=== PATIENT | male | born 1965 | race Caucasian/White ===

== ENCOUNTER 2017-03-24 10:17 | Inpatient (IN) | payer BC ==
[2017-03-24] MEDS ORDERED: ceFAZolin 2 GM in SODIUM CHLORIDE 0.9% 100 ML IVPB SCH (16:00)
[2017-03-24] MEDS ORDERED: IV VANCOMYCIN PER PHARMACY 1 EACH MISC MISCELLANE PRN (16:43)
[2017-03-24] MEDS ORDERED: VANCOMYCIN 1,250 MG in SODIUM CHLORIDE 0.9% 250 ML IVPB ONE (17:00)
[2017-03-24 17:06] LABS: Basophils # (A) 0.1 k/uL (0-0.2); Basophils % (A) 0 %; CH 28.3; CHCM 32.7; Eosinophils # (A) 0.2 k/uL (0-0.7); Eosinophils % (A) 1 %; HCT 35.2 % (39.0-53.0); HDW 2.89; HGB 11.6 gm/dL (13.0-17.5); Luc # (Auto) 0.31; Luc % (Auto) 1; Lymphocytes # (A) 1.6 k/uL (1.0-4.8); Lymphocytes % (A) 7 %; MCH 28.7 pg (25.0-35.0); MCHC 33.1 g/dL (31.0-37.0); MCV 86.6 fL (80.0-100.0); Mean Platelet Volume 6.7; Monocytes # (A) 0.6 k/uL (0-1.0); Monocytes % (A) 3 %; Neutrophils # (A) 20.4 k/uL (1.3-7.7); Neutrophils % (A) 88 %; RBC 4.06 m/uL (4.30-5.90); RDW 12.7 % (11.5-15.5); WBC 23.1 k/uL (3.8-10.6); WBC (Perox) 24.22
[2017-03-24 17:17] LABS: ALT 25 U/L (21-72); AST 15 U/L (17-59); Alkaline Phosphatase 96 U/L (38-126); Anion Gap 13 mmol/L; Blood Urea Nitrogen 29 mg/dL (9-20); Carbon Dioxide 22 mmol/L (22-30); Chloride 101 mmol/L (98-107); Glucose 132 mg/dL (74-99); Non-African American GFR(MDRD) >60 (>60 ml/min/1.73 sqM); Potassium 4.8 mmol/L (3.5-5.1); Sodium 136 mmol/L (137-145); Total Bilirubin 0.8 mg/dL (0.2-1.3)
[2017-03-24] MEDS ORDERED: INSULIN GLARGINE 100 UNIT/ML 10 ML VIAL SQ SCH (17:30)
[2017-03-24] MEDS: CARVEDILOL 3.125 MG TAB PO SCH (17:35)
[2017-03-24] MEDS: IBUPROFEN 800 MG TAB PO PRN (17:35)
[2017-03-24 17:36] LABS: Glucose,Whole Blood 124 mg/dL (75-99)
[2017-03-24] MEDS: SODIUM CHLORIDE 0.9% 1,000 ML IV SCH (17:43)
[2017-03-24] MEDS: INSULIN LISPRO (humaLOG) 300 UNIT/3 ML VIAL SQ SCH ×3 (17:44→21:41)
[2017-03-24 20:57] LABS: Glucose,Whole Blood 121 mg/dL (75-99)
[2017-03-24] MEDS: INSULIN GLARGINE 100 UNIT/ML 10 ML VIAL SQ SCH (21:41)
[2017-03-24] MEDS: SPIRONOLACTONE 25 MG TAB PO SCH (21:42)
[2017-03-24] MEDS: traMADol 50 MG TAB PO PRN (21:47)
[2017-03-24] MEDS: PIPERACILLIN-TAZOBACTAM 3.375 GM in DEXTROSE/WATER 1 50ML.BAG IVPB SCH (23:32)
[2017-03-24 23:34] LABS: Hemoglobin A1C 7.1 % (4.2-6.1)
[2017-03-25] MEDS: SODIUM CHLORIDE 0.9% 1,000 ML IV SCH ×2 (04:57→16:55)
[2017-03-25] MEDS: VANCOMYCIN 1,250 MG in SODIUM CHLORIDE 0.9% 250 ML IVPB SCH ×2 (04:59→21:10)
[2017-03-25 07:38] LABS: Glucose,Whole Blood 102 mg/dL (75-99)
[2017-03-25] MEDS: INSULIN LISPRO (humaLOG) 300 UNIT/3 ML VIAL SQ SCH ×7 (07:41→21:46)
[2017-03-25] MEDS: PIPERACILLIN-TAZOBACTAM 3.375 GM in DEXTROSE/WATER 1 50ML.BAG IVPB SCH ×2 (08:38→16:53)
[2017-03-25] MEDS: IBUPROFEN 800 MG TAB PO PRN ×2 (08:42→16:55)
[2017-03-25] MEDS: INSULIN GLARGINE 100 UNIT/ML 10 ML VIAL SQ SCH ×2 (08:42→21:45)
[2017-03-25] MEDS: ASPIRIN 81 MG CHEW PO SCH (08:43)
[2017-03-25] MEDS: ATORVASTATIN 40 MG TAB PO SCH (08:43)
[2017-03-25] MEDS: SPIRONOLACTONE 25 MG TAB PO SCH ×2 (08:43→20:52)
[2017-03-25] MEDS: CARVEDILOL 3.125 MG TAB PO SCH ×2 (08:43→16:55)
[2017-03-25] MEDS: CLOPIDOGREL 75 MG TAB PO SCH (08:43)
--- NOTE | 2017-03-25 09:14 | P.GSCN ---
<Flavia Santacruz - Last Filed: 03/25/17 08:55> History of Present Illness Consult date: 03/25/17 Reason for Consult: Right lower extremity wound, treatment options. Requesting physician: Jose F Kathleen History of present illness: This 51-year-old gentleman with a previous history of uncontrolled type 2 diabetes, COPD, tobacco dependence, cardiac arrest, triple vessel coronary artery disease status post coronary artery bypass graft surgery in February 2016, acute kidney injury, and peripheral vascular disease presented to the hospital at the request of Dr. Kathleen secondary to a wound on the medial aspect of his right foot. The patient states the wound has been present for 7-10 days. It began as a blister and grew from there. He has tried wrapping it, Neosporin, Epsom soaks, as well as squeezing the pus out of the wound. He saw Dr. Kathleen in his office and was started on oral antibiotics. Patient states he was sent to the hospital as he had an elevated white blood cell count for IV antibiotics. He does state that the site is painful with walking but not at rest. Dr. Johnson was consulted for treatment recommendations. Review of Systems 14 point review of systems was completed and was negative except as noted. - Constitutional Constitutional Comment(s): Denies fever, chills. - Cardiovascular Cardiovascular Comment(s): State the right leg has been swollen lately. - Musculoskeletal Musculoskeleta Comment(s): States the foot hurts with walking but not at rest. States the pain has only been there since the wound was present, denies leg pain with walking. 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 Last Myocardial Infarction Date:: 2015 History of Any Multi-Drug Resistant Organisms: None Reported Past Surgical History: Coronary Bypass/CABG, Heart Catheterization Additional Past Surgical History / Comment(s): 02/09/17 cardiac cath, 02/13/16 CABG 4 vessel. Past Anesthesia/Blood Transfusion Reactions: No Reported Reaction Smoking Status: Former smoker - Past Family History Mother Family Medical History: Coronary Artery Disease (CAD), Diabetes Mellitus Father Family Medical History: Diabetes Mellitus Medications and Allergies Home Medications Medication Instructions Recorded Confirmed Type Atorvastatin [Lipitor] 40 mg PO DAILY 03/24/17 03/24/17 History Insulin Glargine,Hum.rec.anlog 15 unit SQ AC-BRKFST 03/24/17 03/24/17 History [Lantus Solostar] Insulin Glargine,Hum.rec.anlog 20 unit SQ AC-SUPPER 03/24/17 03/24/17 History [Lantus Solostar] Insulin Lispro [humaLOG Kwikpen] 10 unit SQ AC-TID 03/24/17 03/24/17 History Insulin Lispro [humaLOG Kwikpen] See Protocol SQ AC-TID 03/24/17 03/24/17 History Spironolactone [Aldactone] 25 mg PO BID 03/24/17 03/24/17 History Allergies Allergy/AdvReac Type Severity Reaction Status Date / Time No Known Allergies Allergy Verified 03/24/17 15:09 Surgical - Exam Vital Signs Temp Pulse Resp BP Pulse Ox 99.3 F 80 18 119/68 97 03/24/17 14:24 03/24/17 14:24 03/24/17 14:24 03/24/17 14:24 03/24/17 14:24 - General well developed, well nourished, no distress, no pain - Eyes PERRL, normal ocular movement - ENT no hearing loss - Neck no masses, no bruits, trachea midline - Respiratory Respirations even, nonlabored. Currently on room air with oxygen saturation 97% . normal expansion, normal respiratory effort, clear to auscultation - Cardiovascular S1, S2 present. Regular rate and rhythm. Palpable pulses bilateral upper extremities, left lower extremity. Faintly palpable DP pulse right lower extremity. No edema present. - Abdomen Abdomen: soft, non tender, bowel sounds - Genitourinary Deferred - Rectum Deferred - Integumentary Stage II dry ulcer present to right medial foot, approximately 5 x 6 cm. See pictures in chart. Patient does have multiple scabs present over lower extremities. Skin is warm and dry. - Psychiatric oriented to time, oriented to person, oriented to place, speech is normal, memory intact Results - Labs 03/24/17 16:44 03/24/17 16:44 Abnormal Lab Results - Last 24 Hours (Table) 03/24/17 03/24/17 03/24/17 Range/Units 16:44 16:44 16:44 WBC 23.1 H (3.8-10.6) k/uL RBC 4.06 L (4.30-5.90) m/uL Hgb 11.6 L (13.0-17.5) gm/dL Hct 35.2 L (39.0-53.0) % Plt Count 493 H (150-450) k/uL Neutrophils # 20.4 H (1.3-7.7) k/uL ESR 106 H (0-15) mm/hr Sodium 136 L (137-145) mmol/L BUN 29 H (9-20) mg/dL Glucose 132 H (74-99) mg/dL POC Glucose (mg/dL) (75-99) mg/dL Hemoglobin A1c (4.2-6.1) % AST 15 L (17-59) U/L Albumin 3.4 L (3.5-5.0) g/dL 03/24/17 03/24/17 03/24/17 Range/Units 16:44 17:23 20:56 WBC (3.8-10.6) k/uL RBC (4.30-5.90) m/uL Hgb (13.0-17.5) gm/dL Hct (39.0-53.0) % Plt Count (150-450) k/uL Neutrophils # (1.3-7.7) k/uL ESR (0-15) mm/hr Sodium (137-145) mmol/L BUN (9-20) mg/dL Glucose (74-99) mg/dL POC Glucose (mg/dL) 124 H 121 H (75-99) mg/dL Hemoglobin A1c 7.1 H (4.2-6.1) % AST (17-59) U/L Albumin (3.5-5.0) g/dL 03/25/17 Range/Units 07:37 WBC (3.8-10.6) k/uL RBC (4.30-5.90) m/uL Hgb (13.0-17.5) gm/dL Hct (39.0-53.0) % Plt Count (150-450) k/uL Neutrophils # (1.3-7.7) k/uL ESR (0-15) mm/hr Sodium (137-145) mmol/L BUN (9-20) mg/dL Glucose (74-99) mg/dL POC Glucose (mg/dL) 102 H (75-99) mg/dL Hemoglobin A1c (4.2-6.1) % AST (17-59) U/L Albumin (3.5-5.0) g/dL Microbiology - Last 24 Hours (Table) 03/24/17 16:55 Gram Stain - Preliminary Foot - Right Wound Culture - Preliminary 03/24/17 17:00 Anaerobic Culture - Preliminary Foot - Right 03/24/17 14:45 Gram Stain - Preliminary Foot - Right Wound Culture - Preliminary Diabetes panel 03/24/17 03/24/17 Range/Units 16:44 16:44 Sodium 136 L (137-145) mmol/L Potassium 4.8 (3.5-5.1) mmol/L Chloride 101 (98-107) mmol/L Carbon Dioxide 22 (22-30) mmol/L BUN 29 H (9-20) mg/dL Creatinine 0.80 (0.66-1.25) mg/dL Glucose 132 H (74-99) mg/dL Hemoglobin A1c 7.1 H (4.2-6.1) % Calcium 9.0 (8.4-10.2) mg/dL AST 15 L (17-59) U/L ALT 25 (21-72) U/L Alkaline Phosphatase 96 (38-126) U/L Total Protein 7.0 (6.3-8.2) g/dL Albumin 3.4 L (3.5-5.0) g/dL Calcium panel 03/24/17 Range/Units 16:44 Calcium 9.0 (8.4-10.2) mg/dL Albumin 3.4 L (3.5-5.0) g/dL Pituitary panel 03/24/17 Range/Units 16:44 Sodium 136 L (137-145) mmol/L Potassium 4.8 (3.5-5.1) mmol/L Chloride 101 (98-107) mmol/L Carbon Dioxide 22 (22-30) mmol/L BUN 29 H (9-20) mg/dL Creatinine 0.80 (0.66-1.25) mg/dL Glucose 132 H (74-99) mg/dL Calcium 9.0 (8.4-10.2) mg/dL Adrenal panel 03/24/17 Range/Units 16:44 Sodium 136 L (137-145) mmol/L Potassium 4.8 (3.5-5.1) mmol/L Chloride 101 (98-107) mmol/L Carbon Dioxide 22 (22-30) mmol/L BUN 29 H (9-20) mg/dL Creatinine 0.80 (0.66-1.25) mg/dL Glucose 132 H (74-99) mg/dL Calcium 9.0 (8.4-10.2) mg/dL Total Bilirubin 0.8 (0.2-1.3) mg/dL AST 15 L (17-59) U/L ALT 25 (21-72) U/L Alkaline Phosphatase 96 (38-126) U/L Total Protein 7.0 (6.3-8.2) g/dL Albumin 3.4 L (3.5-5.0) g/dL - Imaging Additional studies: EDWIN reviewed Assessment and Plan (1) Peripheral vascular disease Status: Acute (2) Tobacco dependence in remission Status: Acute (3) Right foot ulcer Status: Acute (4) COPD (chronic obstructive pulmonary disease) Status: Acute (5) Diabetes Status: Acute (6) S/P CABG (coronary artery bypass graft) Status: Acute Plan: The patient was seen and examined. Chart/diagnostics were reviewed. Wet-to- dry dressing applied to right foot wound. Will discuss treatment recommendations with Dr. Johnson. Medical management per primary care service. IV antibiotic treatment per infectious disease recommendations. Wound culture sent, await results. Risk factor modifications discussed with patient including continued smoking cessation and better control of blood sugars. Thank you Dr. Kathleen for this consult. We look forward to working with you in the care of your patient. Time with Patient: Greater than 30 <Ramone Johnson - Last Filed: 03/25/17 14:27> Surgical - Exam Osteopathic Statement: *. No significant issues noted on an osteopathic structural exam other than those noted in the History and Physical/Consult. Vital Signs Temp Pulse Resp BP Pulse Ox 99.3 F 80 18 119/68 97 03/24/17 14:24 03/24/17 14:24 03/24/17 14:24 03/24/17 14:24 03/24/17 14:24 Results - Labs 03/25/17 08:48 03/25/17 08:48 Abnormal Lab Results - Last 24 Hours (Table) 03/24/17 03/24/17 03/24/17 Range/Units 16:44 16:44 16:44 WBC 23.1 H (3.8-10.6) k/uL RBC 4.06 L (4.30-5.90) m/uL Hgb 11.6 L (13.0-17.5) gm/dL Hct 35.2 L (39.0-53.0) % Plt Count 493 H (150-450) k/uL Neutrophils # 20.4 H (1.3-7.7) k/uL ESR 106 H (0-15) mm/hr Sodium 136 L (137-145) mmol/L BUN 29 H (9-20) mg/dL Glucose 132 H (74-99) mg/dL POC Glucose (mg/dL) (75-99) mg/dL Hemoglobin A1c (4.2-6.1) % AST 15 L (17-59) U/L Albumin 3.4 L (3.5-5.0) g/dL Urine Mucus (None) /hpf 03/24/17 03/24/17 03/24/17 Range/Units 16:44 17:23 20:56 WBC (3.8-10.6) k/uL RBC (4.30-5.90) m/uL Hgb (13.0-17.5) gm/dL Hct (39.0-53.0) % Plt Count (150-450) k/uL Neutrophils # (1.3-7.7) k/uL ESR (0-15) mm/hr Sodium (137-145) mmol/L BUN (9-20) mg/dL Glucose (74-99) mg/dL POC Glucose (mg/dL) 124 H 121 H (75-99) mg/dL Hemoglobin A1c 7.1 H (4.2-6.1) % AST (17-59) U/L Albumin (3.5-5.0) g/dL Urine Mucus (None) /hpf 03/25/17 03/25/17 03/25/17 Range/Units 07:37 08:48 08:48 WBC 18.0 H (3.8-10.6) k/uL RBC 3.94 L (4.30-5.90) m/uL Hgb 11.3 L (13.0-17.5) gm/dL Hct 34.6 L (39.0-53.0) % Plt Count 509 H (150-450) k/uL Neutrophils # 15.3 H (1.3-7.7) k/uL ESR (0-15) mm/hr Sodium (137-145) mmol/L BUN 25 H (9-20) mg/dL Glucose 125 H (74-99) mg/dL POC Glucose (mg/dL) 102 H (75-99) mg/dL Hemoglobin A1c (4.2-6.1) % AST 12 L (17-59) U/L Albumin 3.2 L (3.5-5.0) g/dL Urine Mucus (None) /hpf 03/25/17 03/25/17 03/25/17 Range/Units 12:27 12:30 13:23 WBC (3.8-10.6) k/uL RBC (4.30-5.90) m/uL Hgb (13.0-17.5) gm/dL Hct (39.0-53.0) % Plt Count (150-450) k/uL Neutrophils # (1.3-7.7) k/uL ESR (0-15) mm/hr Sodium (137-145) mmol/L BUN (9-20) mg/dL Glucose (74-99) mg/dL POC Glucose (mg/dL) 62 L 68 L (75-99) mg/dL Hemoglobin A1c (4.2-6.1) % AST (17-59) U/L Albumin (3.5-5.0) g/dL Urine Mucus Rare H (None) /hpf Microbiology - Last 24 Hours (Table) 03/24/17 16:55 Gram Stain - Preliminary Foot - Right Wound Culture - Preliminary 03/24/17 17:00 Anaerobic Culture - Preliminary Foot - Right 03/24/17 14:45 Gram Stain - Preliminary Foot - Right Wound Culture - Preliminary Diabetes panel 03/24/17 03/24/17 03/25/17 Range/Units 16:44 16:44 08:48 Sodium 136 L 139 (137-145) mmol/L Potassium 4.8 5.0 (3.5-5.1) mmol/L Chloride 101 103 (98-107) mmol/L Carbon Dioxide 22 25 (22-30) mmol/L BUN 29 H 25 H (9-20) mg/dL Creatinine 0.80 0.80 (0.66-1.25) mg/dL Glucose 132 H 125 H (74-99) mg/dL Hemoglobin A1c 7.1 H (4.2-6.1) % Calcium 9.0 9.1 (8.4-10.2) mg/dL AST 15 L 12 L (17-59) U/L ALT 25 27 (21-72) U/L Alkaline Phosphatase 96 78 (38-126) U/L Total Protein 7.0 6.7 (6.3-8.2) g/dL Albumin 3.4 L 3.2 L (3.5-5.0) g/dL Calcium panel 03/24/17 03/25/17 Range/Units 16:44 08:48 Calcium 9.0 9.1 (8.4-10.2) mg/dL Albumin 3.4 L 3.2 L (3.5-5.0) g/dL Pituitary panel 03/24/17 03/25/17 Range/Units 16:44 08:48 Sodium 136 L 139 (137-145) mmol/L Potassium 4.8 5.0 (3.5-5.1) mmol/L Chloride 101 103 (98-107) mmol/L Carbon Dioxide 22 25 (22-30) mmol/L BUN 29 H 25 H (9-20) mg/dL Creatinine 0.80 0.80 (0.66-1.25) mg/dL Glucose 132 H 125 H (74-99) mg/dL Calcium 9.0 9.1 (8.4-10.2) mg/dL Adrenal panel 03/24/17 03/25/17 Range/Units 16:44 08:48 Sodium 136 L 139 (137-145) mmol/L Potassium 4.8 5.0 (3.5-5.1) mmol/L Chloride 101 103 (98-107) mmol/L Carbon Dioxide 22 25 (22-30) mmol/L BUN 29 H 25 H (9-20) mg/dL Creatinine 0.80 0.80 (0.66-1.25) mg/dL Glucose 132 H 125 H (74-99) mg/dL Calcium 9.0 9.1 (8.4-10.2) mg/dL Total Bilirubin 0.8 0.8 (0.2-1.3) mg/dL AST 15 L 12 L (17-59) U/L ALT 25 27 (21-72) U/L Alkaline Phosphatase 96 78 (38-126) U/L Total Protein 7.0 6.7 (6.3-8.2) g/dL Albumin 3.4 L 3.2 L (3.5-5.0) g/dL Assessment and Plan Plan: This patient does have moderate looks really occlusive disease, but does appear to have adequate circulatory status for healing. I would recommend using absorptive silver for now as a dressing. This would be changed on an every other day basis. I would recommend complete nonweightbearing. He should utilize a walker or crutches. We will follow him from here in the wound center. As this will mature somewhat we will decide on a different topical wound treatment.
[2017-03-25 09:54] LABS: Basophils # (A) 0.1 k/uL (0-0.2); Basophils % (A) 0 %; CH 28.1; CHCM 32.1; Eosinophils # (A) 0.2 k/uL (0-0.7); Eosinophils % (A) 1 %; HCT 34.6 % (39.0-53.0); HDW 2.85; HGB 11.3 gm/dL (13.0-17.5); Hypochromasia Slight; Luc # (Auto) 0.25; Luc % (Auto) 1; Lymphocytes # (A) 1.4 k/uL (1.0-4.8); Lymphocytes % (A) 8 %; MCH 28.8 pg (25.0-35.0); MCHC 32.8 g/dL (31.0-37.0); MCV 87.8 fL (80.0-100.0); Mean Platelet Volume 6.5; Monocytes # (A) 0.8 k/uL (0-1.0); Monocytes % (A) 4 %; Neutrophils # (A) 15.3 k/uL (1.3-7.7); Neutrophils % (A) 85 %; RBC 3.94 m/uL (4.30-5.90); RDW 12.6 % (11.5-15.5); WBC (Perox) 18.37
[2017-03-25 10:01] LABS: ALT 27 U/L (21-72); AST 12 U/L (17-59); Alkaline Phosphatase 78 U/L (38-126); Anion Gap 11 mmol/L; Blood Urea Nitrogen 25 mg/dL (9-20); Calcium 9.1 mg/dL (8.4-10.2); Carbon Dioxide 25 mmol/L (22-30); Chloride 103 mmol/L (98-107); Glucose 125 mg/dL (74-99); Non-African American GFR(MDRD) >60 (>60 ml/min/1.73 sqM); Sodium 139 mmol/L (137-145); Total Bilirubin 0.8 mg/dL (0.2-1.3); Total Protein 6.7 g/dL (6.3-8.2)
[2017-03-25 12:32] LABS: Glucose,Whole Blood 68 mg/dL (75-99)
[2017-03-25 12:32] LABS: Glucose,Whole Blood 62 mg/dL (75-99)
[2017-03-25 13:01] LABS: Glucose,Whole Blood 82 mg/dL (75-99)
[2017-03-25 13:47] VITALS: BMI 18.8
[2017-03-25 13:55] LABS: Appearance,Urine Cloudy (Clear); Bilirubin,Urine Negative (Negative); Glucose,Urine (UA) Negative (Negative); Ketones,Urine Negative (Negative); Leukocyte Esterase,Urine Negative (Negative); Mucus,Urine Rare /hpf; Nitrite,Urine Negative (Negative); PH, Urine 5.5 (5.0-8.0); Particle Count 2885; Protein,Urine Negative (Negative); RBC,Urine 1 /hpf (0-5); Specific Gravity,Urine 1.023 (1.001-1.035); Squamous Epithelial Cell,Urine 3 /hpf (0-4); UA Billing (MACRO vs. MICRO) MICRO; Urobilinogen,Urine <2.0 mg/dL (<2.0); WBC,Urine 2 /hpf (0-5)
[2017-03-25 16:43] LABS: Glucose,Whole Blood 142 mg/dL (75-99)
--- NOTE | 2017-03-25 16:48 | HP ---
SUBJECTIVE/CHIEF COMPLAINT: This is a 51-year-old white male with severe cellulitis of the right ankle. HISTORY OF PRESENT ILLNESS: This 51-year-old white male presents after failing outpatient treatment with Augmentin for significant left leg/ankle distal lower leg severe cellulitis with white count elevation of 24,000, at which time he was admitted for IV antibiotics for severe diabetic foot infection and wound infection. He has significant swelling and redness from his distal toes on the left foot all the way up to lower one third of the leg ( ) left foot but greatest over the left heel and medial ankle area with denudation of all tissue with white eschar and severe redness, swelling and tenderness and warmth; unable to walk on his foot. Patient is admitted to the hospital at this point. Patient has a history of dyslipidemia, coronary artery disease with systolic heart failure and significant diabetes mellitus and heart failure, nicotine addiction, COPD. Home medications include: 1. Spironolactone 25 b.i.d. 2. Humalog, Accu-Chek protocol 10 units before meals t.i.d. 3. Lantus insulin 20 units with supper, 15 units with breakfast. 4. Plavix 75 mg a day. 5. Carvedilol 3.125 b.i.d. 6. Atorvastatin 40 daily. 7. Aspirin 81 mg daily. REVIEW OF SYSTEMS: PSYCH: Negative. NEURO: Negative. VASCULAR: Negative. IMMUNE: Negative. INTEGUMENT: As mentioned above. PULMONARY: History of COPD and nicotine addiction. CARDIAC: History of congestive heart failure, dyspnea, PND, orthopnea. PHYSICAL EXAM: This is a white male in no acute distress. CARDIOVASCULAR: S1, S2. Lungs show scattered wheeze x4. HEMATOLOGIC: Negative Joselyn's. INTEGUMENT: Left medial ankle and heel area with a large white eschar type denudation of tissue about 4 x 3 inches. It has surrounding erythema of the entire left medial foot and the anterior left foot and left ankle, greatest in the medial area, about 4 to 5 inches about the ankle. His pulses are 1+ dorsalis pedis, posterior tibial, radial pulse. OPHTHALMOLOGIC: Pupils equal, round and reactive to light and accommodation. ASSESSMENT: 1. Cellulitis of the left foot and ankle. 2. Diabetic wound infection of the left foot and ankle. Rule out osteomyelitis. Arterial Doppler, MRI of the ankle will be done to rule out osteomyelitis. Please see further orders on the chart. Home medicines will be continued. Vancomycin and Zosyn are continued. MTDD
[2017-03-25 21:25] LABS: Glucose,Whole Blood 75 mg/dL (75-99)
[2017-03-25] MEDS: traMADol 50 MG TAB PO PRN (21:45)
--- NOTE | 2017-03-25 23:13 | CONS ---
DATE OF SERVICE: 03/24/2017 REASON FOR CONSULTATION: Right diabetic foot infection. HISTORY OF PRESENT ILLNESS: The patient is a 51-year-old male who has been admitted directly from Dr. Kathleen's office for infection to the right foot area. The patient says he noticed the area of his right foot lateral border about a week ago. The patient says he has been using some new shoes, leading to irritation of this area. He was evaluated by Dr. Kathleen, where the patient was put on some oral antibiotics; the patient is not sure about the name. He did have reevaluation today in the office. He was noted to have worsening of his infection and has been admitted directly to the hospital. The patient has been complaining of some dull aching pain, especially when touched. Intensity is about 2 to 3 out of 10 and no radiation. There was no significant drainage from it. The patient denies any high-grade fever. The patient denies significant chest pain, shortness of breath or cough. No abdominal pain or any diarrhea. The patient was started on cefazolin and ID was consulted for further recommendations regarding antibiotic therapy. REVIEW OF SYSTEMS: CONSTITUTIONAL: Positive for weakness. No fever. EYES: No complaint. ENT: No complaint. RESPIRATORY: No complaint. CARDIOVASCULAR: No complaint. GENITOURINARY: No complaint. GASTROINTESTINAL: No complaint. MUSCULOSKELETAL: As per HPI. INTEGUMENTARY: As per HPI. PSYCHOLOGIC: No complaint. ENDOCRINE: No complaint. NEUROLOGICAL: No complaint. Past medical history is significant for: 1. Diabetes mellitus. 2. History of cardiac arrest. 3. Coronary artery disease. 4. Hyperlipidemia. PAST SURGICAL HISTORY: Coronary bypass grafting. SOCIAL HISTORY: Remote history of smoking. No drinking or drug use. FAMILY HISTORY: No pertinent findings were noticed. ALLERGIES: NO KNOWN DRUG ALLERGIES. Current medications include: 1. Aspirin. 2. Lipitor. 3. Coreg. 4. Plavix. 5. Motrin. 6. Lantus. 7. Humalog. 8. Cefazolin. 9. Aldactone. 10. Ultram. On examination, blood pressure 119/60 with a pulse of 80, temperature 99.3. He is 97% on room air. General description is a middle-aged male lying in bed in no distress. HEENT examination shows pallor. No scleral icterus. ( ) NECK: Trachea is central. No thyromegaly. LUNGS: Unlabored breathing. Clear to auscultation anteriorly. HEART: S1, S2. Regular rate and rhythm. ABDOMEN: Soft. No tenderness. No guarding or rigidity. EXTREMITIES: No edema of the feet. Examination of the right foot ( ) the patient did have a fluctuant area on pressure. Purulent material came out which was cultured. Some surrounding redness and swelling. Neurologically, the patient is awake, alert, oriented x3. Mood and affect normal. LABS: Hemoglobin is 11.6, white count 23.1 with a BUN of 29, creatinine 0.80. Blood cultures obtained are currently pending. DIAGNOSTIC IMPRESSION AND PLAN: Patient with right diabetic foot infection with likely abscess formation in a patient with underlying diabetes. Will need to cover for the polymicrobial renee, including both the Gram-positive as well as the Gram-negative. PLAN: 1. Wound culture has been obtained. Will follow the results. Blood culture is requested. 2. Await vascular surgery evaluation for the I&D of this area and deep culture. 3. Discontinue cefazolin. Will start the patient on vancomycin, Pharmacy to dose , and Zosyn. 4. Will follow up on the clinical condition and cultures to further adjust medication if needed. Thank you for this consultation. Will follow this patient along with you. YANET
[2017-03-26] MEDS: PIPERACILLIN-TAZOBACTAM 3.375 GM in DEXTROSE/WATER 1 50ML.BAG IVPB SCH ×3 (00:17→16:39)
[2017-03-26] MEDS ORDERED: VANCOMYCIN TROUGH DUE 1 EACH MISC MISCELLANE ONE (05:00)
[2017-03-26] MEDS: VANCOMYCIN 1,250 MG in SODIUM CHLORIDE 0.9% 250 ML IVPB SCH ×2 (05:48→17:37)
[2017-03-26 05:55] LABS: Anion Gap 11 mmol/L; Blood Urea Nitrogen 22 mg/dL (9-20); Calcium 8.8 mg/dL (8.4-10.2); Carbon Dioxide 26 mmol/L (22-30); Chloride 103 mmol/L (98-107); Glucose 178 mg/dL (74-99); Non-African American GFR(MDRD) >60 (>60 ml/min/1.73 sqM); Potassium 4.4 mmol/L (3.5-5.1); Sodium 140 mmol/L (137-145)
[2017-03-26] MEDS: IBUPROFEN 800 MG TAB PO PRN ×2 (06:44→17:35)
[2017-03-26 07:11] LABS: Glucose,Whole Blood 199 mg/dL (75-99)
[2017-03-26] MEDS: ATORVASTATIN 40 MG TAB PO SCH (09:00)
[2017-03-26] MEDS: ASPIRIN 81 MG CHEW PO SCH (09:00)
[2017-03-26] MEDS: CLOPIDOGREL 75 MG TAB PO SCH (09:00)
[2017-03-26] MEDS: SPIRONOLACTONE 25 MG TAB PO SCH ×2 (09:00→21:35)
[2017-03-26] MEDS: traMADol 50 MG TAB PO PRN ×2 (09:00→16:38)
[2017-03-26] MEDS: INSULIN GLARGINE 100 UNIT/ML 10 ML VIAL SQ SCH ×3 (09:01→21:39)
[2017-03-26] MEDS: SODIUM CHLORIDE 0.9% 1,000 ML IV SCH ×2 (09:02→21:35)
[2017-03-26] MEDS: CARVEDILOL 3.125 MG TAB PO SCH ×2 (09:04→16:41)
[2017-03-26] MEDS: INSULIN LISPRO (humaLOG) 300 UNIT/3 ML VIAL SQ SCH ×7 (09:04→21:35)
--- NOTE | 2017-03-26 10:23 | P.PN ---
Subjective Principal diagnosis: Right lower extremity wound Patient's currently sitting up in the bed in no acute distress. Denies pain. Objective - Vital Signs Vital signs: Vital Signs Temp 98.6 F 03/26/17 07:00 Pulse 57 L 03/26/17 07:00 Resp 16 03/26/17 07:00 BP 130/68 03/26/17 07:00 Pulse Ox 97 03/26/17 07:00 Intake & Output 03/25/17 03/26/17 03/26/17 18:59 06:59 18:59 Output Total 1000 1250 Balance -1000 -1250 Weight 63 kg Output: Urine 1000 1250 Other: Voiding Method Toilet Urinal - Constitutional General appearance: Present: cooperative, no acute distress - Respiratory Details: Lungs sounds diminished bilaterally. Respirations even, nonlabored. Currently on room air with oxygen saturation 97%. - Cardiovascular Rhythm: regular Heart sounds: normal: S1, S2 - Gastrointestinal Gastrointestinal Comment(s): Abdomen soft, nontender, nondistended. General gastrointestinal: Present: normal bowel sounds - Genitourinary Genitourinary Comment(s): Continues to void clear yellow urine. - Integumentary Integumentary Comment(s): Opticell silver dressing applied to right foot wound yesterday. - Neurologic Neurologic: Present: CNII-XII intact - Musculoskeletal Musculoskeletal: Present: strength equal bilaterally - Psychiatric Psychiatric: Present: A&O x's 3, appropriate affect, intact judgment & insight - Allied health notes Allied health notes reviewed: nursing - Labs CBC & Chem 7: 03/25/17 08:48 03/26/17 05:04 Labs: Abnormal Lab Results - Last 24 Hours (Table) 03/25/17 03/25/17 03/25/17 Range/Units 12:27 12:30 13:23 BUN (9-20) mg/dL Glucose (74-99) mg/dL POC Glucose (mg/dL) 62 L 68 L (75-99) mg/dL Urine Mucus Rare H (None) /hpf 03/25/17 03/26/17 03/26/17 Range/Units 16:42 05:04 07:09 BUN 22 H (9-20) mg/dL Glucose 178 H (74-99) mg/dL POC Glucose (mg/dL) 142 H 199 H (75-99) mg/dL Urine Mucus (None) /hpf Microbiology - Last 24 Hours (Table) 03/24/17 17:12 Blood Culture - Preliminary Blood No Growth after 24 hours 03/24/17 16:50 Blood Culture - Preliminary Blood No Growth after 24 hours 03/24/17 16:55 Gram Stain - Preliminary Foot - Right Wound Culture - Preliminary Presumptive Staph aureus 03/25/17 13:23 Urine Culture - Preliminary Urine,Clean Catch Assessment and Plan (1) Peripheral vascular disease Status: Acute (2) Tobacco dependence in remission Status: Acute (3) Right foot ulcer Status: Acute (4) COPD (chronic obstructive pulmonary disease) Status: Acute (5) Diabetes Status: Acute (6) S/P CABG (coronary artery bypass graft) Status: Acute Plan: 1. Opticell silver dressing to be changed every other day, next dressing change tomorrow Thursday, March 27. PATTERN CLEANER to view wound at dressing change. 2. Patient will need to follow with us in the wound care center when discharged. 3. Patient is to remain nonweightbearing to his right lower extremity. Physical therapy was ordered. 4. Antibiotics per infectious disease service. 5. Other medical comorbidities to be managed by primary care service. 6. More recommendations as patient progresses. Time with Patient: Greater than 30
--- NOTE | 2017-03-26 12:34 | PN ---
DATE OF SERVICE: 03/25/17 REASON FOR FOLLOW UP: Right diabetic foot infection. INTERVAL HISTORY: The patient is afebrile, he has been breathing comfortably. Denies significant chest pain, shortness of breath or cough. No abdominal pain or any worsening pain in the right foot area. On examination, blood pressure 136/70 with a pulse of 73. Temperature 97.1. He is 98% on room air. General description is a middle aged male lying in the bed in no distress. Respiratory system unlabored breathing. Clear to auscultation anteriorly. Heart S1, S2 regular rate and rhythm. Abdomen soft. No tenderness. Right foot is currently dressed up. No obvious drainage noted. LABS: Wound cultures presumptive ( ). DIAGNOSTIC IMPRESSION AND PLAN: The patient with diabetic foot infection with likely an abscess, awaiting the surgical drainage and deep cultures. We will keep the patient on IV Zosyn and Vanco, adjusting further based on the culture report. Continue supportive care. MTDD
[2017-03-26 12:53] LABS: Glucose,Whole Blood 59 mg/dL (75-99)
[2017-03-26 12:53] LABS: Glucose,Whole Blood 58 mg/dL (75-99)
[2017-03-26 13:30] LABS: Glucose,Whole Blood 119 mg/dL (75-99)
[2017-03-26 17:07] LABS: Glucose,Whole Blood 186 mg/dL (75-99)
[2017-03-26 21:01] LABS: Glucose,Whole Blood 158 mg/dL (75-99)
[2017-03-26] MEDS: ceFAZolin 2 GM in SODIUM CHLORIDE 0.9% 100 ML IVPB SCH (23:51)
[2017-03-27] MEDS: IBUPROFEN 800 MG TAB PO PRN ×3 (03:26→19:15)
[2017-03-27 07:43] LABS: Glucose,Whole Blood 122 mg/dL (75-99)
[2017-03-27] MEDS: INSULIN LISPRO (humaLOG) 300 UNIT/3 ML VIAL SQ SCH ×7 (08:20→21:02)
[2017-03-27] MEDS: CARVEDILOL 3.125 MG TAB PO SCH ×2 (08:23→15:53)
[2017-03-27] MEDS: ASPIRIN 81 MG CHEW PO SCH (08:23)
[2017-03-27] MEDS: ceFAZolin 2 GM in SODIUM CHLORIDE 0.9% 100 ML IVPB SCH ×3 (08:23→23:30)
[2017-03-27] MEDS: CLOPIDOGREL 75 MG TAB PO SCH (08:24)
[2017-03-27] MEDS: SPIRONOLACTONE 25 MG TAB PO SCH ×2 (08:24→21:16)
[2017-03-27] MEDS: ATORVASTATIN 40 MG TAB PO SCH (08:24)
[2017-03-27] MEDS: INSULIN GLARGINE 100 UNIT/ML 10 ML VIAL SQ SCH ×2 (08:24→21:12)
--- NOTE | 2017-03-27 09:11 | P.WCSRGD ---
Wound Ctr Surgical Debridement Date of service: 03/27/2017 Surgeon: Alex Pre-and postop diagnosis: Ulcer with abscess right foot Type of debridement: Excisional surgical Chief complaint: ulcer of medial right foot just ahead of the heel Anesthesia: Not required as the patient is a diabetic and has severe neuropathy Signs of infection: Purulence extrudes from my a small hole posterior to an eschar over the ulcer Extent of necrotic, devitalized or non-viable tissue: Necrotic eschar and necrotic soft tissue Other material in the wound that is expected to inhibit healing or promote adjacent tissue breakdown: Same Degree of epithelialization: % Method and instrument: Surgical debridement with scalpel Character of the wound after debridement: Clean bloody subcutaneous bed Description of necrotic material present: Eschar and necrotic soft tissue Description of tissue removed: Same Pre-debridement measurement: The eschar was about 1.2 x 1.2 cm and the depth could not be measured Postoperative debridement measurement: 1.6 x 1.4 cm and 0.5 cm in depth Control of bleeding:Bleeding was easily controlled with saline moistened gauze and light pressure Post debridement dressing: Wet-to-dry Patient tolerated procedure well We will utilize half-strength peroxide twice a day for 1 day and then switch to Santyl dressing. Patient will be followed from here and [facility].
[2017-03-27 09:18] LABS: Anion Gap 9 mmol/L; Blood Urea Nitrogen 15 mg/dL (9-20); Calcium 8.6 mg/dL (8.4-10.2); Carbon Dioxide 24 mmol/L (22-30); Chloride 106 mmol/L (98-107); Glucose 118 mg/dL (74-99); Non-African American GFR(MDRD) >60 (>60 ml/min/1.73 sqM); Potassium 4.8 mmol/L (3.5-5.1); Sodium 139 mmol/L (137-145)
[2017-03-27] MEDS: SODIUM CHLORIDE 0.9% 1,000 ML IV SCH ×2 (11:11→23:33)
--- NOTE | 2017-03-27 12:10 | PN ---
SUBJECTIVE: This 51 -year-old white male with right lower extremity wound, sitting up in the bed in no acute distress. Temperature 98.6. Pulse 50s to 60s, respiratory rate 18, blood pressure 130/60. O2 97% on room air. Cardiovascular: S1, S2. Lungs reveal transmitted upper air sounds. GI soft. Neurological: Alert and oriented times three. Integument: Silvadene dressing over the right medial leg wound. Cultures are negative so far. White count 18,000. Hemoglobin 11.3. Sodium 140 , potassium 4.4. ASSESSMENT: 1. Peripheral vascular disease. 2. Acute nicotine addiction. 3. Right foot ulcer. 4. Chronic obstructive pulmonary disease. 5. Diabetes mellitus. 6. Status post CABG. Continue to change dressings. Non-weightbearing to the right lower extremity. IV antibiotics were given. Await recommendations per infectious disease etc. MTDD
[2017-03-27 12:13] LABS: Glucose,Whole Blood 117 mg/dL (75-99)
[2017-03-27] MEDS: traMADol 50 MG TAB PO PRN ×2 (13:17→19:13)
--- NOTE | 2017-03-27 16:17 | PN ---
DATE OF SERVICE: 03/26/17 REASON FOR FOLLOW UP: Diabetic foot infection with abscess. INTERVAL HISTORY: The patient is afebrile. He has been breathing comfortably. Denies significant chest pain, shortness of breath, cough. ( ) right foot area. On examination, blood pressure 124/64 with a pulse of 70. Temperature 97.6. He is 98% on room air. General description is a middle aged male lying in the bed in no distress. Respiratory system unlabored breathing. Clear to auscultation anteriorly. Heart S1, S2 regular rate and rhythm. Abdomen soft. No tenderness. Right foot ( ) wound, still has purulent drainage. Surrounding redness has improved though. LABS: No new labs have been obtained today. DIAGNOSTIC IMPRESSION AND PLAN: The patient with MSSA right foot abscess. The patient needs to have surgical drainage of this abscess to also determine the depth of this abscess. This has been discussed in detail with the nurse practitioner for surgery. We will switch antibiotic therapy to Cefazolin, discontinue Vanco and Zosyn. Continue supportive care. YANET
[2017-03-27 17:30] LABS: Glucose,Whole Blood 145 mg/dL (75-99)
[2017-03-27 20:45] LABS: Glucose,Whole Blood 121 mg/dL (75-99)
[2017-03-28] MEDS: traMADol 50 MG TAB PO PRN ×3 (01:35→18:37)
[2017-03-28] MEDS: IBUPROFEN 800 MG TAB PO PRN ×3 (01:35→18:36)
[2017-03-28 07:38] LABS: Glucose,Whole Blood 94 mg/dL (75-99)
[2017-03-28 07:43] LABS: Anion Gap 8 mmol/L; Blood Urea Nitrogen 17 mg/dL (9-20); Calcium 8.9 mg/dL (8.4-10.2); Carbon Dioxide 27 mmol/L (22-30); Chloride 103 mmol/L (98-107); Glucose 94 mg/dL (74-99); Non-African American GFR(MDRD) >60 (>60 ml/min/1.73 sqM); Potassium 4.7 mmol/L (3.5-5.1); Sodium 138 mmol/L (137-145)
[2017-03-28] MEDS: INSULIN LISPRO (humaLOG) 300 UNIT/3 ML VIAL SQ SCH ×7 (07:53→21:44)
[2017-03-28] MEDS: INSULIN GLARGINE 100 UNIT/ML 10 ML VIAL SQ SCH ×2 (07:53→21:44)
[2017-03-28] MEDS: ceFAZolin 2 GM in SODIUM CHLORIDE 0.9% 100 ML IVPB SCH ×3 (07:56→23:50)
[2017-03-28] MEDS: CARVEDILOL 3.125 MG TAB PO SCH ×2 (07:56→17:34)
[2017-03-28] MEDS: CLOPIDOGREL 75 MG TAB PO SCH (07:56)
[2017-03-28] MEDS: ASPIRIN 81 MG CHEW PO SCH (07:56)
[2017-03-28] MEDS: ATORVASTATIN 40 MG TAB PO SCH (07:56)
[2017-03-28] MEDS: COLLAGENASE 250 UNIT/GM OINTMENT 30 GM TUBE TOPICAL SCH (07:56)
[2017-03-28] MEDS: SPIRONOLACTONE 25 MG TAB PO SCH ×2 (07:57→21:45)
--- NOTE | 2017-03-28 11:20 | PN ---
DATE OF SERVICE: 03/27/2017 REASON FOR FOLLOW UP: Right diabetic foot infection with MSSA. INTERVAL HISTORY: The patient is afebrile. The patient is status post bedside drainage of the right foot abscess. The patient tolerated the procedure. Denies any pain in the right foot area. Denies chest pain, shortness of breath or cough. No abdominal pain or diarrhea. On examination: Blood pressure 119/56 with pulse 66. Temperature 97.5. He is 100% on room air. General description is a middle-aged male lying in bed in no distress. RESPIRATORY: Unlabored breathing. Clear to auscultation anteriorly. HEART: S1, S2 regular rate and rhythm. ABDOMEN: Soft, no tenderness. Right foot is currently dressed up with some drainage on the dressing. LABS: BUN 15, creatinine 0.71. DIAGNOSTIC IMPRESSION AND PLAN: Patient with right foot abscess secondary to MSSA status post bedside debridement. Patient will continue cefazolin over the weekend and evaluate the patient on Thursday to determine discharge antibiotics. Continue support care. YANET
[2017-03-28 11:57] LABS: Glucose,Whole Blood 133 mg/dL (75-99)
[2017-03-28] MEDS: SODIUM CHLORIDE 0.9% 1,000 ML IV SCH ×2 (15:01→23:52)
--- NOTE | 2017-03-28 16:02 | P.PN ---
Subjective Principal diagnosis: Ulcer of the medial right foot just ahead of the heel. POD #1 excisional surgical debridement with scalpel, medial right foot wound just ahead of the heel. Patient is laying in bed with his foot elevated higher than the level of his heart. Denies complaints of pain at this time. No acute distress. Objective - Vital Signs Vital signs: Vital Signs Temp 97.7 F 03/28/17 14:36 Pulse 67 03/28/17 14:36 Resp 18 03/28/17 14:36 BP 113/66 03/28/17 14:36 Pulse Ox 91 L 03/28/17 14:36 Intake & Output 03/27/17 03/28/17 03/28/17 18:59 06:59 18:59 Intake Total 1220 950 700 Output Total 3650 420 Balance 1220 -2700 280 Intake: IV 700 700 Sodium Chloride 0.9% 1, 600 600 000 ml @ 75 mls/hr IV . [id number] NITIN Rx#:[id number] ceFAZolin 2 gm In Sodium 100 100 Chloride 0.9% 100 ml @ 100 mls/hr IVPB Q8HR NITIN Rx#:[id number] Oral 520 950 Output: Urine 3650 420 - Constitutional General appearance: Present: cooperative, no acute distress, thin - EENT Eyes: Present: PERRLA, normal appearance ENT: Present: hearing grossly normal - Neck Details: No JVD, no lymphadenopathy. - Respiratory Details: Essentially clear throughout, diminished to his bilateral bases. Respirations are symmetrical and unlabored. Oxygen saturations are 99% on room air. - Cardiovascular Details: Regular rhythm and rate. S1 and S2 present, positive systolic murmur heard best at his fifth intercostal space left sternal border. - Gastrointestinal Gastrointestinal Comment(s): Abdomen is soft, nontender and nondistended. Positive bowel sounds to all 4 abdominal quadrants. - Genitourinary Genitourinary Comment(s): Adequate urine output. Clear yellow urine. - Integumentary Integumentary Comment(s): Right heel ulcer with scant serosanguineous drainage. Necrotic tissue present with some sloughing. - Neurologic Neurologic: Present: CNII-XII intact - Musculoskeletal Musculoskeletal: Present: generalized weakness - Psychiatric Psychiatric: Present: A&O x's 3, appropriate affect, intact judgment & insight - Allied health notes Allied health notes reviewed: nursing - Labs CBC & Chem 7: 03/25/17 08:48 03/28/17 07:07 Labs: Abnormal Lab Results - Last 24 Hours (Table) 03/27/17 03/27/17 03/28/17 Range/Units 17:17 20:33 11:54 POC Glucose (mg/dL) 145 H 121 H 133 H (75-99) mg/dL Microbiology - Last 24 Hours (Table) 03/24/17 17:12 Blood Culture - Preliminary Blood No Growth after 72 hours 03/24/17 16:50 Blood Culture - Preliminary Blood No Growth after 72 hours 03/24/17 14:45 Gram Stain - Final Foot - Right Wound Culture - Final Staphylococcus aureus Assessment and Plan (1) History of ST elevation myocardial infarction (STEMI) Status: Acute (2) Peripheral vascular disease Status: Acute (3) Right foot ulcer Status: Acute (4) Tobacco dependence in remission Status: Acute (5) COPD (chronic obstructive pulmonary disease) Status: Acute (6) Diabetes Status: Acute (7) S/P CABG (coronary artery bypass graft) Status: Acute Plan: 1. Dressing to his right heel wound changed, Santyl applied and new dressing applied. 2. May require a bone scan in the near future, progression of his wound. 3. Will need a follow-up in the wound healing center for further wound care on an outpatient basis. 4. More recommendations as care progresses. Time with Patient: Greater than 30
[2017-03-28 17:14] LABS: Glucose,Whole Blood 95 mg/dL (75-99)
[2017-03-28 20:55] LABS: Glucose,Whole Blood 176 mg/dL (75-99)
[2017-03-29] MEDS: traMADol 50 MG TAB PO PRN ×3 (02:37→17:50)
[2017-03-29] MEDS: IBUPROFEN 800 MG TAB PO PRN ×3 (02:38→17:51)
[2017-03-29 06:48] LABS: Glucose,Whole Blood 111 mg/dL (75-99)
[2017-03-29] MEDS: INSULIN GLARGINE 100 UNIT/ML 10 ML VIAL SQ SCH ×2 (07:26→21:56)
[2017-03-29] MEDS: INSULIN LISPRO (humaLOG) 300 UNIT/3 ML VIAL SQ SCH ×7 (07:26→21:37)
[2017-03-29] MEDS: CARVEDILOL 3.125 MG TAB PO SCH ×2 (07:52→17:44)
[2017-03-29] MEDS: SPIRONOLACTONE 25 MG TAB PO SCH ×2 (07:52→21:37)
[2017-03-29] MEDS: CLOPIDOGREL 75 MG TAB PO SCH (07:52)
[2017-03-29] MEDS: ceFAZolin 2 GM in SODIUM CHLORIDE 0.9% 100 ML IVPB SCH ×3 (07:52→23:44)
[2017-03-29] MEDS: ATORVASTATIN 40 MG TAB PO SCH (07:52)
[2017-03-29] MEDS: ASPIRIN 81 MG CHEW PO SCH (07:52)
[2017-03-29] MEDS: COLLAGENASE 250 UNIT/GM OINTMENT 30 GM TUBE TOPICAL SCH (07:53)
[2017-03-29 08:28] LABS: Basophils # (A) 0.1 k/uL (0-0.2); Basophils % (A) 1 %; CH 28.8; CHCM 32.5; Eosinophils # (A) 0.3 k/uL (0-0.7); Eosinophils % (A) 2 %; HCT 36.4 % (39.0-53.0); HDW 2.98; HGB 11.5 gm/dL (13.0-17.5); Hypochromasia Slight; Luc % (Auto) 1; Lymphocytes # (A) 2.1 k/uL (1.0-4.8); Lymphocytes % (A) 13 %; MCHC 31.6 g/dL (31.0-37.0); MCV 88.8 fL (80.0-100.0); Mean Platelet Volume 6.9; Monocytes # (A) 0.6 k/uL (0-1.0); Monocytes % (A) 4 %; Neutrophils % (A) 79 %; RDW 13.1 % (11.5-15.5); WBC 15.3 k/uL (3.8-10.6); WBC (Perox) 16.03
[2017-03-29 08:53] LABS: ALT 19 U/L (21-72); AST 11 U/L (17-59); Alkaline Phosphatase 83 U/L (38-126); Anion Gap 6 mmol/L; Blood Urea Nitrogen 16 mg/dL (9-20); Calcium 9.1 mg/dL (8.4-10.2); Carbon Dioxide 31 mmol/L (22-30); Chloride 103 mmol/L (98-107); Glucose 99 mg/dL (74-99); Non-African American GFR(MDRD) >60 (>60 ml/min/1.73 sqM); Potassium 5.2 mmol/L (3.5-5.1); Sodium 140 mmol/L (137-145); Total Bilirubin 0.3 mg/dL (0.2-1.3); Total Protein 6.6 g/dL (6.3-8.2)
--- NOTE | 2017-03-29 11:47 | NM ---
EXAMINATION TYPE: NM bone 3 phase DATE OF EXAM: 03/29/2017 COMPARISON: NONE HISTORY: Right ankle osteomyelitis with swelling Triple phase bone scintigraphy was performed following the injection of27.9 mCi Tc 99m MDP. Immediat e images and 4 hours post injection images acquired. FINDINGS: There is increased flow to the right foot and ankle and increased soft tissue uptake noted. On delaye d imaging there is increased uptake along the base of the calcaneus plantar surface. IMPRESSION: Findings are consistent with cellulitis and osteomyelitis plantar surface calcaneus.
[2017-03-29 12:17] LABS: Glucose,Whole Blood 199 mg/dL (75-99)
--- NOTE | 2017-03-29 13:55 | PN ---
SUBJECTIVE: This is a 51 -year-old white male with medial right foot ulcer of the heel, status post incisional surgical debridement with a scalpel, medial right foot. Temperature 97.7, pulse 60s, respiratory rate 16 to 18. Blood pressure 113/ 60s. O2 91% on room air. Cardiovascular: S1, S2. Lungs transmitted upper airway sounds. Hematology: Negative Homans. Integument: Shows right ankle with bandage and wrap on it. Abdomen is soft and nontender. White count 18, sodium ( ). Psych: Fair mood and affect. ASSESSMENT: 1. History of ST elevation myocardial infarction. 2. Peripheral vascular disease. 3. Right foot ulcer. 4. Nicotine addiction. 5. Chronic obstructive pulmonary disease. 6. Diabetes mellitus. 7. Status post CABG. PLAN: Continue Santyl dressings to the right medial heel, possible bone scan. Follow-up in the wound care on an outpatient basis. Please see further orders. MTDD
--- NOTE | 2017-03-29 14:27 | P.PN ---
Subjective Principal diagnosis: Ulcer of the medial right foot just ahead of the heel. POD #2 excisional surgical debridement with scalpel, medial right foot wound just ahead of the heel. Patient is laying in bed with his foot elevated higher than the level of his heart. Denies complaints of pain at this time. No acute distress. His dressing to his right heel wound remains clean dry and intact no drainage noted. Objective - Vital Signs Vital signs: Vital Signs Temp 96.9 F L 03/29/17 06:09 Pulse 61 03/29/17 06:09 Resp 14 03/29/17 06:09 BP 129/76 03/29/17 06:09 Pulse Ox 98 03/29/17 06:09 Intake & Output 03/28/17 03/29/17 03/29/17 18:59 06:59 18:59 Intake Total 700 Output Total 420 700 Balance 280 -700 Intake: IV 700 Sodium Chloride 0.9% 1, 600 000 ml @ 75 mls/hr IV . [id number] NITIN Rx#:[id number] ceFAZolin 2 gm In Sodium 100 Chloride 0.9% 100 ml @ 100 mls/hr IVPB Q8HR NITIN Rx#:[id number] Output: Urine 420 700 Other: # Voids 2 - Constitutional General appearance: Present: cooperative, no acute distress, thin - EENT Eyes: Present: PERRLA, normal appearance ENT: Present: hearing grossly normal - Neck Details: No JVD or lymphadenopathy. - Respiratory Details: Lung sounds are essentially clear throughout, diminished to his bilateral bases. Symmetrical and nonlabored. Oxygen saturations 98% on room air. He is achieving 1500 mL to 2000 mL on his incentive spirometry. - Cardiovascular Details: Regular rhythm and rate. S1 and S2 present, positive systolic murmur 3/6 heard best over his right sternal border. No edema present. - Gastrointestinal Gastrointestinal Comment(s): Abdomen is soft, nontender and nondistended. Active bowel sounds all 4 abdominal quadrants. No guarding or organomegaly. - Genitourinary Genitourinary Comment(s): Adequate urine output, clear yellow urine. - Integumentary Integumentary Comment(s): Right heel ulcer with scant serosanguineous drainage. Necrotic tissue present with some sloughing. Dressing to his right heel ulcer changed. Santyl applied per 's orders. - Neurologic Neurologic Comment(s): No focal deficits. Neurologic: Present: CNII-XII intact - Psychiatric Psychiatric: Present: A&O x's 3, appropriate affect, intact judgment & insight - Labs CBC & Chem 7: 03/29/17 08:04 03/29/17 08:04 Labs: Abnormal Lab Results - Last 24 Hours (Table) 03/28/17 03/29/17 03/29/17 Range/Units 20:48 06:44 08:04 WBC (3.8-10.6) k/uL RBC (4.30-5.90) m/uL Hgb (13.0-17.5) gm/dL Hct (39.0-53.0) % Plt Count (150-450) k/uL Neutrophils # (1.3-7.7) k/uL Potassium 5.2 H (3.5-5.1) mmol/L Carbon Dioxide 31 H (22-30) mmol/L POC Glucose (mg/dL) 176 H 111 H (75-99) mg/dL AST 11 L (17-59) U/L ALT 19 L (21-72) U/L Albumin 3.1 L (3.5-5.0) g/dL 03/29/17 03/29/17 Range/Units 08:04 12:14 WBC 15.3 H (3.8-10.6) k/uL RBC 4.10 L (4.30-5.90) m/uL Hgb 11.5 L (13.0-17.5) gm/dL Hct 36.4 L (39.0-53.0) % Plt Count 486 H (150-450) k/uL Neutrophils # 12.0 H (1.3-7.7) k/uL Potassium (3.5-5.1) mmol/L Carbon Dioxide (22-30) mmol/L POC Glucose (mg/dL) 199 H (75-99) mg/dL AST (17-59) U/L ALT (21-72) U/L Albumin (3.5-5.0) g/dL Microbiology - Last 24 Hours (Table) 03/24/17 17:00 Anaerobic Culture - Final Foot - Right 03/24/17 17:12 Blood Culture - Preliminary Blood No Growth after 96 hours 03/24/17 16:50 Blood Culture - Preliminary Blood No Growth after 96 hours - Imaging and Cardiology Bone scan results reviewed and discussed with Dr. Johnson. Assessment and Plan (1) History of ST elevation myocardial infarction (STEMI) Status: Acute (2) Peripheral vascular disease Status: Acute (3) Right foot ulcer Status: Acute (4) Tobacco dependence in remission Status: Acute (5) COPD (chronic obstructive pulmonary disease) Status: Acute (6) Diabetes Status: Acute (7) S/P CABG (coronary artery bypass graft) Status: Acute Plan: 1. Dressing to his right heel wound changed, Santyl applied and new dressing applied. 2. Bone scan was completed today, findings are consistent with cellulitis and osteomyelitis plantar surface of his calcaneus right foot. 3. He will be scheduled tomorrow 03/30/2017 for a formal surgical debridement with bone involvement to his right heel ulcer.. 4. He will potentially need to be set up for hyperbaric wound care on an outpatient basis. 5. More recommendations as care progresses. Time with Patient: Greater than 30
--- NOTE | 2017-03-29 14:53 | PN ---
SUBJECTIVE: 51-year-old white male admitted to the hospital with cellulitis and possible osteomyelitis. Bone scan is pending today. CARDIOVASCULAR: S1/S2. LUNGS: Clear. HEMATOLOGY: Negative Homans. PSYCH: Fair mood and affect. NEUROLOGIC: Alert and oriented x3. OPHTHALMOLOGIC: Pupils equal, round, react to light and accommodation. Temperature 97.7, pulse 67, respiratory rate 18, blood pressure 118/78. ENT: Within normal limits. ABDOMEN: Soft. White count 18, hemoglobin 11.3. ASSESSMENT: 1. ST elevation myocardial infarction. 2. Peripheral vascular disease. 3. Right foot ulcer. 4. Nicotine addiction. 5. Chronic obstructive pulmonary disease. 6. Diabetes. 7. Status post coronary artery bypass graft. Bone scan, wound care, dressing to the right wound was changed, Santyl applied, dressing applied. Possible discharge home tomorrow. Infection and antibiotics will be determined based on bone scan done today. MTDD
[2017-03-29] MEDS: SODIUM CHLORIDE 0.9% 1,000 ML IV SCH (15:50)
[2017-03-29 17:25] LABS: Glucose,Whole Blood 170 mg/dL (75-99)
[2017-03-29 20:54] LABS: Glucose,Whole Blood 112 mg/dL (75-99)
[2017-03-30] MEDS: SODIUM CHLORIDE 0.9% 1,000 ML IV SCH ×2 (04:30→18:06)
[2017-03-30] MEDS ORDERED: IV FLUID CONTINUATION 1,000 ML IV ONE (07:26)
[2017-03-30 07:47] LABS: Glucose,Whole Blood 98 mg/dL (75-99)
[2017-03-30] MEDS ORDERED: fentaNYL (PF) 50 MCG/ML 2 ML AMP ONE (07:47)
[2017-03-30] MEDS ORDERED: MIDAZOLAM 2 MG/2 ML VIAL ONE (07:47)
[2017-03-30] MEDS ORDERED: PROPOFOL 10 MG/ML 20 ML VIAL IV ONE (07:47)
--- NOTE | 2017-03-30 08:28 | P.WCSRGD ---
Wound Ctr Surgical Debridement Date of service: 03/30/2017 Surgeon: Alex Pre-and postop diagnosis: Diabetic infection plantar right heel Type of debridement: Excisional surgical Chief complaint: ulcer of plantar aspect medial right heel Anesthesia: 2% lidocaine gel applied to the ulcer Signs of infection: Purulence within the tissues and necrotic tissues and some redness as well as several fistulous areas with purulence Extent of necrotic, devitalized or non-viable tissue: And necrotic fatty tissue Other material in the wound that is expected to inhibit healing or promote adjacent tissue breakdown: Necrotic fatty tissue and purulence Degree of epithelialization: % Method and instrument: Surgical debridement with scalpel Character of the wound after debridement: Bloody subcutaneous fatty bed Description of necrotic material present: Nonviable soft tissue and fatty tissue Description of tissue removed: Same plus overlying skin Pre-debridement measurement: 3 x 1.5 cm and 0.4 cm in depth Postoperative debridement measurement: 9 x 3 cm and 1.3 cm in depth Control of bleeding:Bleeding was easily controlled with saline moistened gauze and light pressure Post debridement dressing: Clean sterile dressings Patient tolerated procedure well
--- NOTE | 2017-03-30 08:53 | PN ---
DATE OF SERVICE: 03/29/2017 Reason for followup is right foot MSSA abscess and cellulitis. INTERVAL HISTORY: The patient is afebrile, has been breathing comfortably. He denies significant chest pain, shortness of breath, cough, no abdominal pain. ( ) in his right foot area. On examination, blood pressure 129/76, pulse is 81, temperature 96.9, his is 98 % on room air. General description is an middle-aged male lying in ed in no distress. RESPIRATORY SYSTEM: Unlabored breathing, clear to auscultation anteriorly. HEART: S1, S2, regular rate and rhythm. ABDOMEN: Soft, no tenderness. Right foot wound is currently dressed. No obvious change on the dressing. LABS: Hemoglobin 11.5, white count of 15.3 with a BUN of 16, creatinine 0.80. DIAGNOSTIC IMPRESSION AND PLAN: Patient with a right diabetic foot infection with an abscess, status post drainage with methicillin-sensitive Staphylococcus aureus. Patient is currently on cefazolin. His white count is slightly elevated. Possible further debridement tomorrow. Continue supportive care. [facility]
[2017-03-30 09:00] LABS: Glucose,Whole Blood 102 mg/dL (75-99)
[2017-03-30] MEDS ORDERED: SODIUM CHLORIDE 0.9% 1,000 ML IV ONE (09:19)
[2017-03-30] MEDS: INSULIN LISPRO (humaLOG) 300 UNIT/3 ML VIAL SQ SCH ×7 (09:57→21:51)
[2017-03-30] MEDS: COLLAGENASE 250 UNIT/GM OINTMENT 30 GM TUBE TOPICAL SCH (09:58)
[2017-03-30] MEDS: INSULIN GLARGINE 100 UNIT/ML 10 ML VIAL SQ SCH ×2 (09:59→21:46)
[2017-03-30] MEDS: ceFAZolin 2 GM in SODIUM CHLORIDE 0.9% 100 ML IVPB SCH ×3 (10:21→23:36)
[2017-03-30] MEDS: CLOPIDOGREL 75 MG TAB PO SCH (10:21)
[2017-03-30] MEDS: ASPIRIN 81 MG CHEW PO SCH (10:21)
[2017-03-30] MEDS: SPIRONOLACTONE 25 MG TAB PO SCH ×2 (10:21→21:46)
[2017-03-30] MEDS: CARVEDILOL 3.125 MG TAB PO SCH ×2 (10:21→17:25)
[2017-03-30] MEDS: ATORVASTATIN 40 MG TAB PO SCH (10:21)
[2017-03-30] MEDS: traMADol 50 MG TAB PO PRN ×3 (10:27→22:42)
[2017-03-30] MEDS: IBUPROFEN 800 MG TAB PO PRN ×2 (10:28→19:21)
[2017-03-30 11:19] LABS: Anion Gap 9 mmol/L; Blood Urea Nitrogen 17 mg/dL (9-20); Calcium 8.8 mg/dL (8.4-10.2); Carbon Dioxide 25 mmol/L (22-30); Chloride 106 mmol/L (98-107); Glucose 93 mg/dL (74-99); Non-African American GFR(MDRD) >60 (>60 ml/min/1.73 sqM); Potassium 4.9 mmol/L (3.5-5.1); Sodium 140 mmol/L (137-145)
[2017-03-30 11:59] LABS: Glucose,Whole Blood 128 mg/dL (75-99)
[2017-03-30] MEDS ORDERED: LIDOCAINE 2% INJ 20 MG/ML SQ ONE (13:59)
--- NOTE | 2017-03-30 14:35 | IR ---
PICC LINE PLACEMENT: HISTORY: Infection requiring long-term antibiotic therapy PROCEDURE: Ultrasound and fluoroscopic guidance of PICC line placement. COMPLICATIONS: None ANESTHESIA: 1. 1% Lidocaine locally. FINDINGS/TECHNIQUE: The procedure was explained to the patient. The risks, complications, benefits and alternatives were discussed and any questions were answered. Informed consent was obtained. The patient was placed supine on the fluoroscopic table and prepped and draped in the usual sterile fas ion. Utilizing a 21 gauge needle and sonographic and fluoroscopic guidance, access in the vein was achieved and there is placement of a 0.018 guidewire. The vein is patent. A 4-F sheath was placed o raisa the guidewire. The guidewire and dilator were removed and a 4-F. PICC line was placed through th e sheath with the tip at the level of the SVC. The sheath was removed, the catheter was flushed and sutured into position. The patient was stable throughout the procedure and remained stable upon disc harge from the Department of Radiology. The vein puncture was patent under ultrasound. A vickers scale image was obtained to document patency of the vein punctured. All elements of the maximal barrier technique were utilized. FLUOROSCOPY TIME: 0.2 minute. One view submitted. IMPRESSION: Successful PICC line placement under ultrasound and fluoroscopic guidance.
[2017-03-30 17:04] LABS: Glucose,Whole Blood 138 mg/dL (75-99)
[2017-03-30 21:18] LABS: Glucose,Whole Blood 98 mg/dL (75-99)
[2017-03-31] MEDS: IBUPROFEN 800 MG TAB PO PRN ×3 (03:52→19:42)
[2017-03-31 07:22] LABS: Glucose,Whole Blood 116 mg/dL (75-99)
[2017-03-31 07:28] LABS: ALT 17 U/L (21-72); AST 11 U/L (17-59); Alkaline Phosphatase 89 U/L (38-126); Anion Gap 8 mmol/L; Blood Urea Nitrogen 21 mg/dL (9-20); Calcium 8.6 mg/dL (8.4-10.2); Carbon Dioxide 28 mmol/L (22-30); Chloride 103 mmol/L (98-107); Glucose 105 mg/dL (74-99); Non-African American GFR(MDRD) >60 (>60 ml/min/1.73 sqM); Potassium 4.4 mmol/L (3.5-5.1); Sodium 139 mmol/L (137-145); Total Bilirubin 0.2 mg/dL (0.2-1.3); Total Protein 5.7 g/dL (6.3-8.2)
[2017-03-31 07:32] LABS: Basophils # (A) 0.1 k/uL (0-0.2); Basophils % (A) 0 %; CH 28.1; CHCM 32.4; Eosinophils # (A) 0.3 k/uL (0-0.7); Eosinophils % (A) 3 %; HCT 27.5 % (39.0-53.0); HDW 3.04; Hypochromasia Slight; Luc % (Auto) 2; Lymphocytes % (A) 17 %; MCH 28.1 pg (25.0-35.0); MCHC 32.3 g/dL (31.0-37.0); Mean Platelet Volume 6.5; Monocytes # (A) 0.5 k/uL (0-1.0); Monocytes % (A) 5 %; Neutrophils # (A) 8.6 k/uL (1.3-7.7); Neutrophils % (A) 73 %; RBC 3.16 m/uL (4.30-5.90); RDW 12.8 % (11.5-15.5); WBC 11.8 k/uL (3.8-10.6); WBC (Perox) 12.05
[2017-03-31 07:36] LABS: HGB 8.9 gm/dL (13.0-17.5)
[2017-03-31] MEDS: INSULIN GLARGINE 100 UNIT/ML 10 ML VIAL SQ SCH ×2 (08:24→21:47)
[2017-03-31] MEDS: INSULIN LISPRO (humaLOG) 300 UNIT/3 ML VIAL SQ SCH ×7 (08:24→21:48)
[2017-03-31] MEDS: SODIUM CHLORIDE 0.9% 1,000 ML IV SCH ×2 (08:25→21:48)
[2017-03-31] MEDS: COLLAGENASE 250 UNIT/GM OINTMENT 30 GM TUBE TOPICAL SCH (08:25)
[2017-03-31] MEDS: ASPIRIN 81 MG CHEW PO SCH (08:25)
[2017-03-31] MEDS: ATORVASTATIN 40 MG TAB PO SCH (08:25)
[2017-03-31] MEDS: CARVEDILOL 3.125 MG TAB PO SCH ×2 (08:25→17:44)
[2017-03-31] MEDS: SPIRONOLACTONE 25 MG TAB PO SCH ×2 (08:25→21:47)
[2017-03-31] MEDS: CLOPIDOGREL 75 MG TAB PO SCH (08:25)
[2017-03-31] MEDS: traMADol 50 MG TAB PO PRN ×2 (08:29→16:09)
[2017-03-31] MEDS: ceFAZolin 2 GM in SODIUM CHLORIDE 0.9% 100 ML IVPB SCH ×2 (08:29→16:06)
[2017-03-31 12:00] LABS: Glucose,Whole Blood 138 mg/dL (75-99)
--- NOTE | 2017-03-31 12:24 | P.PN ---
<Flavia Santacruz - Last Filed: 03/31/17 12:18> Subjective Principal diagnosis: Diabetic infection, plantar right heel. POD #1 excisional surgical debridement of the plantar aspect medial right heel. Patient's currently sitting up in the bed in no acute distress. Denies pain. Right leg elevated above the level of the heart. Objective - Vital Signs Vital signs: Vital Signs Temp 96.8 F L 03/31/17 07:00 Pulse 68 03/31/17 07:00 Resp 20 03/31/17 07:00 BP 128/69 03/31/17 07:00 Pulse Ox 98 03/31/17 07:00 Intake & Output 03/30/17 03/31/17 03/31/17 18:59 06:59 18:59 Intake Total 250 1300 Output Total 1650 800 Balance -1400 1300 -800 Weight 63 kg Intake: IV 250 1300 Sodium Chloride 0.9% 1, 1200 000 ml @ 75 mls/hr IV . [id number] NITIN Rx#:[id number] ceFAZolin 2 gm In Sodium 100 Chloride 0.9% 100 ml @ 100 mls/hr IVPB Q8HR NITIN Rx#:[id number] Output: Urine 1600 800 Estimated Blood Loss 50 Other: Voiding Method Toilet Urinal - Constitutional General appearance: Present: cooperative, no acute distress - Respiratory Details: Lungs sounds diminished bilaterally. Respirations even, nonlabored. Currently on room air oxygen saturation 98%. - Cardiovascular Rhythm: regular Heart sounds: normal: S1, S2 - Gastrointestinal Gastrointestinal Comment(s): Abdomen soft, nontender, nondistended. Active bowel sounds 4 quadrants. Tolerating diet. - Genitourinary Genitourinary Comment(s): Continues to void clear, yellow urine per urinal. - Integumentary Integumentary Comment(s): Right foot wound dressing changed. Small area of continued bleeding along the medial aspect of the wound, cauterized. Cleaned with half-strength peroxide, covered with 4 x 4, Kerlix, Shant wrap. - Musculoskeletal Musculoskeletal Comment(s): Nonweightbearing on right lower extremity. Able to use crutches, walker. Musculoskeletal: Present: strength equal bilaterally - Psychiatric Psychiatric: Present: A&O x's 3, appropriate affect, intact judgment & insight - Allied health notes Allied health notes reviewed: nursing - Labs CBC & Chem 7: 03/31/17 06:35 03/31/17 06:35 Labs: Abnormal Lab Results - Last 24 Hours (Table) 03/30/17 03/31/17 03/31/17 Range/Units 17:02 06:35 06:35 WBC 11.8 H (3.8-10.6) k/uL RBC 3.16 L (4.30-5.90) m/uL Hgb 8.9 L D (13.0-17.5) gm/dL Hct 27.5 L (39.0-53.0) % Neutrophils # 8.6 H (1.3-7.7) k/uL BUN 21 H (9-20) mg/dL Glucose 105 H (74-99) mg/dL POC Glucose (mg/dL) 138 H (75-99) mg/dL AST 11 L (17-59) U/L ALT 17 L (21-72) U/L Total Protein 5.7 L (6.3-8.2) g/dL Albumin 2.7 L (3.5-5.0) g/dL 03/31/17 03/31/17 Range/Units 06:58 11:56 WBC (3.8-10.6) k/uL RBC (4.30-5.90) m/uL Hgb (13.0-17.5) gm/dL Hct (39.0-53.0) % Neutrophils # (1.3-7.7) k/uL BUN (9-20) mg/dL Glucose (74-99) mg/dL POC Glucose (mg/dL) 116 H 138 H (75-99) mg/dL AST (17-59) U/L ALT (21-72) U/L Total Protein (6.3-8.2) g/dL Albumin (3.5-5.0) g/dL Microbiology - Last 24 Hours (Table) 03/30/17 08:15 Gram Stain - Preliminary Ankle - Right Wound Culture - Preliminary Presumptive Staph aureus 03/24/17 17:12 Blood Culture - Final Blood No Growth after 144 hours 03/24/17 16:50 Blood Culture - Final Blood No Growth after 144 hours 03/30/17 08:15 Anaerobic Culture - Preliminary Ankle - Right Assessment and Plan (1) Peripheral vascular disease Status: Acute (2) Tobacco dependence in remission Status: Acute (3) Right foot ulcer Status: Acute (4) COPD (chronic obstructive pulmonary disease) Status: Acute (5) Diabetes Status: Acute (6) S/P CABG (coronary artery bypass graft) Status: Acute Plan: 1. Dressing change to right foot wound twice daily, cleaned with half-strength peroxide, covered with 4 x 4's, Kerlix, Shant wrapped. 2. Patient will need to follow with us in the wound care center when discharged. 3. Patient is to remain nonweightbearing to his right lower extremity. Physical therapy was ordered. 4. Antibiotics per infectious disease service. 5. Other medical comorbidities to be managed by primary care service. 6. More recommendations as patient progresses. Time with Patient: Greater than 30 <Ramone Johnson - Last Filed: 04/01/17 11:52> Subjective Foot wound is cleaning up well. We'll work on wound VAC. Objective - Vital Signs Vital signs: Vital Signs Temp 97.3 F L 04/01/17 07:00 Pulse 69 04/01/17 07:00 Resp 18 04/01/17 07:00 BP 158/77 04/01/17 07:00 Pulse Ox 98 04/01/17 07:00 Intake & Output 03/31/17 04/01/17 04/01/17 18:59 06:59 18:59 Output Total 1700 300 Balance -1700 -300 Output: Urine 1700 300 Other: Voiding Method Toilet Urinal Urinal # Voids 2 1 # Bowel Movements 1 - Labs CBC & Chem 7: 03/31/17 06:35 03/31/17 06:35 Labs: Abnormal Lab Results - Last 24 Hours (Table) 03/31/17 03/31/17 03/31/17 Range/Units 11:56 17:20 21:42 POC Glucose (mg/dL) 138 H 106 H 115 H (75-99) mg/dL 04/01/17 Range/Units 07:00 POC Glucose (mg/dL) 101 H (75-99) mg/dL Microbiology - Last 24 Hours (Table) 03/30/17 08:15 Gram Stain - Preliminary Ankle - Right Wound Culture - Preliminary Presumptive Staph aureus
--- NOTE | 2017-03-31 13:00 | PN ---
DATE OF SERVICE: 03/30/2017 Reason for followup is right foot MSSA abscess. INTERVAL HISTORY: The patient is afebrile, has been breathing comfortably. Patient did have further drainage of the abscess done this morning in the OR by Dr. Johnson. Patient tolerated the procedure. Post surgery, the patient denies any worsening pain to the right foot area. Denies any chest pain, shortness of breath or cough. No abdominal pain or any diarrhea. On examination, blood pressure is 132/70 with a pulse of 66, temperature is 97.2. He is 99% on room air. General description is a middle age male, lying in bed, in no distress. RESPIRATORY SYSTEM: Unlabored breathing. Clear to auscultation anteriorly. HEART: S1 and S2, regular rate and rhythm. ABDOMEN: Soft, no tenderness. Right foot is currently dressed, no obvious drainage on the dressing. DIAGNOSTIC IMPRESSION AND PLAN: Patient with right foot abscess, status post drainage. Culture positive for MSSA. With ( ) drainage this morning. In view of ( ) infection, the patient will need a PICC line for outpatient IV antibiotic therapy for at least 4 weeks from now. Local wound care to continue per surgery. Continue supportive care. MTDD
[2017-03-31] MEDS: FAMOTIDINE 20 MG TAB PO SCH ×2 (13:56→21:47)
--- NOTE | 2017-03-31 14:25 | PN ---
SUBJECTIVE: This is a 51-year-old white male who underwent surgical debridement of a malleolar osteomyelitis per Dr. Johnson. The patient continues on broad spectrum antibiotics, possible need to take IV antibiotics at the rehab center until he gets better. Cardiovascular: S1, S2. GI soft. Right ankle shows surgical debridement with diabetic infection plantar right heel. The patient continued to do well and necrotic material was taken out. It is 9 x 3 cm x 1.3 cm in depth. The patient tolerated the procedure well today. Continue IV antibiotics for prison period of time. SIMONED
[2017-03-31] MEDS: HEPARIN SODIUM,PORCINE 5,000 UNIT/ML 1 ML VIAL SQ SCH (16:06)
--- NOTE | 2017-03-31 16:11 | PN ---
DATE OF SERVICE: 03/31/17 REASON FOR FOLLOW UP: Right diabetic foot infection with an abscess, MSSA. INTERVAL HISTORY: The patient is afebrile. Has been breathing comfortably. Denies significant chest pain. No shortness of breath or cough. No abdominal pain. No diarrhea. On examination, blood pressure 128/69 with a pulse of 68. Temperature 96.8. He is 98% on room air. General description is a middle aged male lying in bed in no distress. Respiratory system unlabored breathing. Clear to auscultation anteriorly. Heart S1, S2 regular rate and rhythm. Abdomen soft. No tenderness. Right foot is currently dressed up. No obvious drainage on the dressing. LABS: Hemoglobin 8.9, white count 11.8. BUN 21, creatinine 0.80. DIAGNOSTIC IMPRESSION AND PLAN: The patient with MSSA right foot abscess with secondary osteomyelitis, acute with associated diabetes mellitus. The patient at this time, will continue Cefazolin 2 gm every eight hours. PICC line has been placed. Script has been given to the patient for IV antibiotics for outpatient. Once arranged, he should be able to go home form an ID standpoint. YANET
[2017-03-31 17:34] LABS: Glucose,Whole Blood 106 mg/dL (75-99)
[2017-03-31 21:44] LABS: Glucose,Whole Blood 115 mg/dL (75-99)
[2017-04-01] MEDS: ceFAZolin 2 GM in SODIUM CHLORIDE 0.9% 100 ML IVPB SCH ×4 (00:19→23:21)
[2017-04-01] MEDS: traMADol 50 MG TAB PO PRN ×3 (00:19→18:24)
[2017-04-01] MEDS: HEPARIN SODIUM,PORCINE 5,000 UNIT/ML 1 ML VIAL SQ SCH ×4 (00:19→23:21)
[2017-04-01] MEDS: IBUPROFEN 800 MG TAB PO PRN ×3 (05:19→20:45)
[2017-04-01 07:22] LABS: Glucose,Whole Blood 101 mg/dL (75-99)
[2017-04-01] MEDS: INSULIN LISPRO (humaLOG) 300 UNIT/3 ML VIAL SQ SCH ×7 (07:40→20:44)
[2017-04-01] MEDS: FAMOTIDINE 20 MG TAB PO SCH ×2 (07:45→20:44)
[2017-04-01] MEDS: SPIRONOLACTONE 25 MG TAB PO SCH ×2 (07:45→20:45)
[2017-04-01] MEDS: CLOPIDOGREL 75 MG TAB PO SCH (07:46)
[2017-04-01] MEDS: ATORVASTATIN 40 MG TAB PO SCH (07:46)
[2017-04-01] MEDS: ASPIRIN 81 MG CHEW PO SCH (07:46)
[2017-04-01] MEDS: CARVEDILOL 3.125 MG TAB PO SCH ×2 (07:47→16:38)
[2017-04-01] MEDS: INSULIN GLARGINE 100 UNIT/ML 10 ML VIAL SQ SCH ×2 (07:49→20:44)
[2017-04-01] MEDS: COLLAGENASE 250 UNIT/GM OINTMENT 30 GM TUBE TOPICAL SCH (07:52)
[2017-04-01] MEDS: SODIUM CHLORIDE 0.9% 1,000 ML IV SCH ×2 (10:27→20:52)
[2017-04-01 14:08] LABS: Glucose,Whole Blood 137 mg/dL (75-99)
--- NOTE | 2017-04-01 14:25 | P.PN ---
<Forest Allen - Last Filed: 04/01/17 14:17> Subjective Principal diagnosis: Ulcer of the medial right foot just ahead of the heel. POD #4 excisional surgical debridement with scalpel, medial right foot wound just ahead of the heel. POD #2 is working but excisional surgical debridement of the plantar aspect medial right heel. Patient is laying in bed with his foot elevated higher than the level of his heart. Denies complaints of pain at this time. No acute distress. His dressing to his right heel wound remains clean dry and intact no drainage noted. Objective - Vital Signs Vital signs: Vital Signs Temp 97.3 F L 04/01/17 07:00 Pulse 69 04/01/17 07:00 Resp 18 04/01/17 07:00 BP 158/77 04/01/17 07:00 Pulse Ox 98 04/01/17 07:00 Intake & Output 03/31/17 04/01/17 04/01/17 18:59 06:59 18:59 Output Total 1700 550 Balance -1700 -550 Output: Urine 1700 550 Other: Voiding Method Toilet Urinal Urinal # Voids 2 1 # Bowel Movements 1 - Constitutional General appearance: Present: cooperative, no acute distress, thin - EENT Eyes: Present: PERRLA, normal appearance ENT: Present: hearing grossly normal - Neck Details: No JVD, no lymphadenopathy. 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 Respirations are symmetrical and nonlabored. Oxygen saturation are 98% on room air. - Cardiovascular Details: Regular rhythm and rate. S1 and S2 present, 2/6 systolic murmur. Negative for S3 or gallop. No edema present. - Gastrointestinal Gastrointestinal Comment(s): Abdomen is soft, nontender and nondistended. Bowel sounds are active times all 4 abdominal quadrants. - Genitourinary Genitourinary Comment(s): Adequate urine output. Clear yellow urine. - Integumentary Integumentary Comment(s): Right foot wound dressing changed. No active bleeding to the wound. Cleaned with half-strength peroxide, wound VAC dressing applied, but granufoam foam placed. VAC settings 125 mmHg continuous and medium intensity. - Neurologic Neurologic Comment(s): No focal deficits. Neurologic: Present: CNII-XII intact - Musculoskeletal Musculoskeletal Comment(s): He is nonweightbearing to his right foot. Crutches at his bedside. - Psychiatric Psychiatric: Present: A&O x's 3, appropriate affect, intact judgment & insight - Allied health notes Allied health notes reviewed: nursing - Labs CBC & Chem 7: 03/31/17 06:35 03/31/17 06:35 Labs: Abnormal Lab Results - Last 24 Hours (Table) 03/31/17 03/31/17 04/01/17 Range/Units 17:20 21:42 07:00 POC Glucose (mg/dL) 106 H 115 H 101 H (75-99) mg/dL 04/01/17 Range/Units 12:24 POC Glucose (mg/dL) 137 H (75-99) mg/dL Microbiology - Last 24 Hours (Table) 03/30/17 08:15 Gram Stain - Final Ankle - Right Wound Culture - Final Staphylococcus aureus 03/30/17 08:15 Anaerobic Culture - Preliminary Ankle - Right Assessment and Plan (1) History of ST elevation myocardial infarction (STEMI) Status: Acute (2) Peripheral vascular disease Status: Acute (3) Right foot ulcer Status: Acute (4) Tobacco dependence in remission Status: Acute (5) COPD (chronic obstructive pulmonary disease) Status: Acute (6) Diabetes Status: Acute (7) S/P CABG (coronary artery bypass graft) Status: Acute Plan: 1. Dressing change to right foot wound VAC dressing applied. 2. Patient will need to follow with us in the wound care center on Wednesdays when discharged. 3. Patient is to remain nonweightbearing to his right lower extremity. Physical therapy was ordered. 4. Antibiotics per infectious disease service. 5. Other medical comorbidities to be managed by primary care service. 6. DVT and GI prophylaxis. 7. More recommendations as patient progresses. Time with Patient: Greater than 30 <Ramone Johnson - Last Filed: 04/01/17 16:14> Subjective The wound is cleaning up nicely. We will switch to a wound VAC and follow accordingly in the wound center. Objective - Vital Signs Vital signs: Vital Signs Temp 97.6 F 04/01/17 15:00 Pulse 69 04/01/17 15:00 Resp 18 04/01/17 15:00 BP 146/74 04/01/17 15:00 Pulse Ox 98 04/01/17 15:00 Intake & Output 03/31/17 04/01/17 04/01/17 18:59 06:59 18:59 Output Total 1700 550 Balance -1700 -550 Output: Urine 1700 550 Other: Voiding Method Toilet Urinal Urinal # Voids 2 1 # Bowel Movements 1 - Labs CBC & Chem 7: 03/31/17 06:35 03/31/17 06:35 Labs: Abnormal Lab Results - Last 24 Hours (Table) 03/31/17 03/31/17 04/01/17 Range/Units 17:20 21:42 07:00 POC Glucose (mg/dL) 106 H 115 H 101 H (75-99) mg/dL 04/01/17 04/01/17 04/01/17 Range/Units 12:24 15:03 15:18 POC Glucose (mg/dL) 137 H 54 L 73 L (75-99) mg/dL 04/01/17 Range/Units 15:40 POC Glucose (mg/dL) 104 H (75-99) mg/dL Microbiology - Last 24 Hours (Table) 03/30/17 08:15 Gram Stain - Final Ankle - Right Wound Culture - Final Staphylococcus aureus 03/30/17 08:15 Anaerobic Culture - Preliminary Ankle - Right
[2017-04-01 15:20] LABS: Glucose,Whole Blood 54 mg/dL (75-99)
[2017-04-01 15:20] LABS: Glucose,Whole Blood 73 mg/dL (75-99)
[2017-04-01 15:54] LABS: Glucose,Whole Blood 104 mg/dL (75-99)
[2017-04-01 17:12] LABS: Glucose,Whole Blood 189 mg/dL (75-99)
[2017-04-01 20:33] LABS: Glucose,Whole Blood 163 mg/dL (75-99)
[2017-04-02] MEDS: traMADol 50 MG TAB PO PRN ×2 (01:06→12:51)
[2017-04-02] MEDS: IBUPROFEN 800 MG TAB PO PRN ×2 (03:38→12:52)
[2017-04-02] MEDS: INSULIN LISPRO (humaLOG) 300 UNIT/3 ML VIAL SQ SCH ×4 (07:43→12:53)
[2017-04-02] MEDS: HEPARIN SODIUM,PORCINE 5,000 UNIT/ML 1 ML VIAL SQ SCH ×2 (07:49→15:14)
[2017-04-02] MEDS: INSULIN GLARGINE 100 UNIT/ML 10 ML VIAL SQ SCH (07:49)
[2017-04-02] MEDS: ASPIRIN 81 MG CHEW PO SCH (07:50)
[2017-04-02] MEDS: SPIRONOLACTONE 25 MG TAB PO SCH (07:50)
[2017-04-02] MEDS: ATORVASTATIN 40 MG TAB PO SCH (07:50)
[2017-04-02] MEDS: CARVEDILOL 3.125 MG TAB PO SCH (07:51)
[2017-04-02] MEDS: CLOPIDOGREL 75 MG TAB PO SCH (07:51)
[2017-04-02] MEDS: FAMOTIDINE 20 MG TAB PO SCH (07:51)
[2017-04-02] MEDS: ceFAZolin 2 GM in SODIUM CHLORIDE 0.9% 100 ML IVPB SCH ×2 (07:51→15:14)
[2017-04-02 07:52] LABS: Glucose,Whole Blood 117 mg/dL (75-99)
--- NOTE | 2017-04-02 09:41 | PN ---
SUBJECTIVE: 49 year old white male with osteomyelitis right medial ankle. He has a 5 x 7 cm x 1.3 cm deep lesion on his right medial ankle. He remains on IV antibiotics. He is status post debridement day one per Dr. Johnson for osteomyelitis. Vital signs are stable. Chart is reviewed. Cardiovascular S1, S2. Lungs clear. ASSESSMENT: 1. Osteomyelitis right calcaneus process. 2. Cellulitis of right foot with diabetic foot infection. Continue broad spectrum antibiotics. PICC line. Home IV antibiotics will be set up. [facility]
[2017-04-02 12:33] LABS: Glucose,Whole Blood 236 mg/dL (75-99)
[2017-04-02] MEDS: SODIUM CHLORIDE 0.9% 1,000 ML IV SCH (14:01)
--- NOTE | 2017-04-02 15:07 | P.DS ---
Providers Date of admission: 03/24/17 13:50 Expected date of discharge: 04/02/17 Attending physician: Jose F Kathleen Consults: 03/24/17 15:22 Consult Physician Routine Consulting Provider: Ignacio Russo Consult Reason/Comments: Wound to Right foot Do you want consulting provider notified?: Yes 03/24/17 17:13 Consult Physician Routine Consulting Provider: Ramone Johnson Consult Reason/Comments: Wound to Right foot Do you want consulting provider notified?: Yes Primary care physician: [facility] Course: This is a 51 year old male who was admitted on March 24, 2017. The patient failed outpatient treatment with Augmentin for significant left leg and ankle cellulitis with elevated white count of 24,000. He was admitted for IV antibiotics. Patient underwent two excisional debridements by vascular surgery during this admission. A wound VAC was placed yesterday. Factious disease has been following the patient and recommends the patient go home on cefazolin 2 mg every 8 hours for 4 weeks. Case was discussed with case management. The patient is all set up for IV antibiotics. Additionally homecare is to come see the patient tomorrow to manage his wound VAC. Patient is to follow-up next week in the wound care center. This patient was seen solely by Dr Kathleen. The nurse practitioner did not participate in the care of this patient. Discharge diagnosis: 1. Osteomyelitis of right calcaneous process 2. Nonhealing wound due to uncontrolled diabetes, present on admission 3. History of peripheral vascular disease 4. History of COPD, no evidence of acute exacerbation 5. History of coronary artery bypass graft surgery The above impression and plan of care have been discussed and directed by signing physician. Mai Braxton, nurse practitioner, acting as scribe for signing physician. Patient Condition at Discharge: Stable Plan - Discharge Summary New Discharge Prescriptions: New traMADol HCl [Ultram] 50 mg PO QID PRN #15 tab PRN Reason: Pain Continue Aspirin 81 mg PO DAILY #30 tab Carvedilol [Coreg] 3.125 mg PO BID-W/MEALS #60 tab Clopidogrel [Plavix] 75 mg PO DAILY #30 tab Insulin Lispro [humaLOG Kwikpen] See Protocol SQ AC-TID Insulin Lispro [humaLOG Kwikpen] 10 unit SQ AC-TID Insulin Glargine,Hum.rec.anlog [Lantus Solostar] 20 unit SQ AC-SUPPER Insulin Glargine,Hum.rec.anlog [Lantus Solostar] 15 unit SQ AC-BRKFST Atorvastatin [Lipitor] 40 mg PO DAILY Spironolactone [Aldactone] 25 mg PO BID Discharge Medication List Aspirin 81 mg PO DAILY #30 tab 03/11/16 [Rx] Carvedilol [Coreg] 3.125 mg PO BID-W/MEALS #60 tab 03/11/16 [Rx] Clopidogrel [Plavix] 75 mg PO DAILY #30 tab 03/11/16 [Rx] Atorvastatin [Lipitor] 40 mg PO DAILY 03/24/17 [History] Insulin Glargine,Hum.rec.anlog [Lantus Solostar] 15 unit SQ AC-BRKFST 03/24/17 [ History] Insulin Glargine,Hum.rec.anlog [Lantus Solostar] 20 unit SQ AC-SUPPER 03/24/17 [ History] Insulin Lispro [humaLOG Kwikpen] 10 unit SQ AC-TID 03/24/17 [History] Insulin Lispro [humaLOG Kwikpen] See Protocol SQ AC-TID 03/24/17 [History] Spironolactone [Aldactone] 25 mg PO BID 03/24/17 [History] traMADol HCl [Ultram] 50 mg PO QID PRN #15 tab 04/02/17 [Rx] Follow up Appointment(s)/Referral(s): [facility], [NON-STAFF] - As Needed [facility], [REFERRING] - W[facility]aling Center,. [NON-STAFF] - 04/08/17 9:15 am Ignacio Russo MD [STAFF PHYSICIAN] - 1 Week Activity/Diet/Wound Care/Special Instructions: Two Wheeled walker ordered through [facility]: #[phone] Wound Vac from [facility]PL[facility]ED [facility] #[phone] Discharge Disposition: HOME WITH HOME HEALTH SERVICES
[2017-04-02 15:47] VITALS: BP 105/55; PULSE 71; RESP 16; TEMP 97.9
--- NOTE | 2017-04-02 16:24 | PN ---
PROGRESS NOTE Date of Service: DATE OF SERVICE: 04/01/2017 REASON FOR FOLLOW UP: Right foot MSSA abscess and cellulitis. INTERVAL HISTORY: The patient is afebrile. Has been breathing comfortably. Denies significant chest pain, shortness of breath or cough. in the right foot area. PHYSICAL EXAMINATION: Blood pressure 146/74 with a pulse of 59, temperature 97.6. He is 98% on room air. GENERAL DESCRIPTION: Middle-aged male lying in bed, in no distress. RESPIRATORY SYSTEM: Unlabored breathing. Clear to auscultation anteriorly. HEART: S1/S2 regular. ABDOMEN: Soft. No tenderness. Right foot medial border wound with overall cellulitis is decreased. No significant or any drainage. LAB: Hemoglobin 8.1, WBC 11.8, as of yesterday. Wound culture with MSSA with anaerobic culture so far negative. DIAGNOSTIC IMPRESSION: Patient with right foot methicillin-sensitive Staphylococcus aureus abscess and cellulitis with question of possible but the wound looks not deep enough to be going down to the bone to have bone scan. However, recommend keeping the patient on IV cefazolin 2 gm oft the wound looks good. Lab even after going down to the bone with a question of possible positive bone scan, and I will recommend to give the patient IV cefazolin 2 g IV with close outpatient follow up. MMODL / IJN: [id number] /
--- NOTE | 2017-04-02 17:47 | PN ---
PROGRESS NOTE Date of Service: SUBJECTIVE: 51-year-old, white male, right leg cellulitis. Osteomyelitis of the calcaneus bone. Still has large amount of bleeding from the wound. PICC line has been placed. He will need IV antibiotics for at least 6 weeks. Wound clinic treatments at least weekly. Cardiovascular are S1, S2. Lungs are clear. GI soft. PLAN: Continue PICC line IV antibiotics for 6 weeks. Discharge planning. MMODL / IJN: [id number] /
--- NOTE | 2017-04-03 12:50 | PN ---
PROGRESS NOTE Date of Service: DATE OF SERVICE: 04/02/2017. REASON FOR FOLLOW UP: Right leg MSSA abscess cellulitis and question of osteomyelitis. INTERVAL HISTORY: The patient was seen on rounds early this afternoon and the patient has been breathing comfortably. Denies significant chest pain, shortness of breath or cough. No abdominal pain or any pain in his right foot area. EXAMINATION: On examination, blood pressure is 105/55 with a pulse 71, temperature 97.9. He is 98% on room air. General description is a middle-aged male lying in bed, in no distress. RESPIRATORY: Unlabored breathing. Clear to auscultation anteriorly. HEART: S1, S2. Regular rate and rhythm. ABDOMEN: Soft, no tenderness. Right heal wound is currently covered with wound VAC. DIAGNOSTIC IMPRESSION: Patient with right foot MSSA abscess and cellulitis, status post drainage. Will keep the patient on cephazolin 2 grams q.8 for at least 4 weeks. Local wound care with the wound VAC with outpatient follow up. MMODL / IJN: [id number] /
--- NOTE | 2017-04-08 10:25 | P.ARTDOP ---
Arterial Doppler LOWER EXTREMITY ARTERIAL DOPPLER: DATE OF SERVICE: 03/24/2017 Reason for study: Right ankle ulcer. Doppler waveforms: Multiphasic bilaterally. Some blunting distally on the right.. Pulse volume recording: Blunting distally on the right. Pressure gradients: Across the knee on the right. Above the low thigh on the left.. Ankle-brachial indices: 0.57 on the right. 0.94 on the left.. Toe pressures: 94 on the right, 93 on the left. Digital plethysmography right toe severely blunted Impression: Suspect moderate right fem-pop disease.. Mild left fem-pop disease. Toe pressures probably adequate for healing. Close clinical correlation recommended.
== END 2017-04-02 16:50 | disposition home health service (06) | DRG 623 ==
LOC: 4MS4W 13:50
PROVIDERS: ADMIT Family Medicine; ATTEND Family Medicine
PROC: 0JBQ0ZZ Excision of Right Foot Subcutaneous Tissue and Fascia, Open Approach (ICD-10-PCS; principal; 2017-03-27)
PROC: 0JBQ0ZZ Excision of Right Foot Subcutaneous Tissue and Fascia, Open Approach (ICD-10-PCS; 2017-03-30 13:45)
PROC: 02HV33Z Insertion of Infusion Device into Superior Vena Cava, Percutaneous Approach (ICD-10-PCS; 2017-03-30 13:45)
DX: E11.69 Type 2 diabetes mellitus with other specified complication (principal); L97.419 Non-pressure chronic ulcer of right heel and midfoot with unspecified severity; M86.171 Other acute osteomyelitis, right ankle and foot; I50.22 Chronic systolic (congestive) heart failure; L03.115 Cellulitis of right lower limb; L02.611 Cutaneous abscess of right foot; E11.621 Type 2 diabetes mellitus with foot ulcer; I11.0 Hypertensive heart disease with heart failure; E11.51 Type 2 diabetes mellitus with diabetic peripheral angiopathy without gangrene; E11.65 Type 2 diabetes mellitus with hyperglycemia; B95.61 Methicillin susceptible Staphylococcus aureus infection as the cause of diseases classified elsewhere; E11.628 Type 2 diabetes mellitus with other skin complications; E78.5 Hyperlipidemia, unspecified; F17.201 Nicotine dependence, unspecified, in remission; I25.10 Atherosclerotic heart disease of native coronary artery without angina pectoris; I25.2 Old myocardial infarction; J44.9 Chronic obstructive pulmonary disease, unspecified; Z79.02 Long term (current) use of antithrombotics/antiplatelets; Z79.4 Long term (current) use of insulin; Z79.82 Long term (current) use of aspirin; Z79.899 Other long term (current) drug therapy; Z86.74 Personal history of sudden cardiac arrest; Z95.1 Presence of aortocoronary bypass graft; Z82.49 Family history of ischemic heart disease and other diseases of the circulatory system
CPT/HCPCS: 36569; 76937; 77001; 78315; 80048; 80053; 80202; 81001; 83036; 83605; 85025; 85652; 87040; 87070; 87075; 87077; 87086; 87186; 87205; 93923

== ENCOUNTER 2017-04-15 10:08 | Day surgery (SDC) | payer BC ==
[2017-04-14 08:27] VITALS: BMI 22.4
[~2017-04-15 10:08] MED LIST: ALPRAZolam 0.25 MG TAB PO PRN; ASPIRIN 325 MG TAB PO STA; SODIUM CHLORIDE 0.9% 1,000 ML in EMPTY BAG 1 BAG IV ONE
[2017-04-15 11:35] LABS: Glucose,Whole Blood 160 mg/dL (75-99)
[2017-04-15] MEDS ORDERED: SODIUM CHLORIDE 0.9% 1,000 ML IV ONE (11:39)
[2017-04-15] MEDS ORDERED: MIDAZOLAM 2 MG/2 ML VIAL IVP ONE (12:30)
[2017-04-15] MEDS ORDERED: LIDOCAINE 2% INJ 20 MG/ML SQ ONE (12:32)
[2017-04-15] MEDS ORDERED: HYDROmorphone 2 MG/ML 1 ML SYRINGE IVP ONE (12:37)
[2017-04-15] MEDS ORDERED: IODIXANOL 320 MG/ML 100 ML INTRAARTER ONE (13:25)
[2017-04-15] MEDS ORDERED: SODIUM CHLORIDE 0.9% 1,000 ML IV SCH (13:30)
[2017-04-15 16:31] VITALS: RESP 18
[2017-04-15 17:16] LABS: Glucose,Whole Blood 149 mg/dL (75-99)
[2017-04-15] MEDS ORDERED: IBUPROFEN 800 MG TAB PO STA (17:51)
[2017-04-15 19:40] VITALS: BP 116/59; PULSE 72; TEMP 98
--- NOTE | 2017-04-15 20:48 | AN ---
ANGIOGRAPHY REPORT DATE OF SERVICE: April 15, 2017 please assist. PERFORMING PHYSICIAN: Laron Kinney M.D., italian teacher. PROCEDURE PERFORMED: 1. Abdominal aortogram. 2. Bilateral lower extremity run off. 3. Selective right superficial femoral artery angiogram. INDICATIONS: This is a pleasant 52-year-old gentleman who sees Dr. Johnson as an outpatient who is struggling with critical limb ischemia and nonhealing ulcer involving the plantar aspect of the right foot. He recently was diagnosed also with osteomyelitis. I was asked by Dr. Johnson to perform an angiogram for the patient regarding severe underlying CAD. APPROACH: Left common femoral artery. COMPLICATION: None. LEVEL OF SEDATION: Moderate with sedation length of 30 minutes. PROCEDURE DESCRIPTION: After obtaining informed consent, the patient was brought to cardiac maintenance shop laborer. The left common femoral artery was cannulated using micropuncture technique, the micropuncture wire passed easily. Then I placed a 6-Mexican sheath in the left common femoral artery. Subsequently, I did an abdominal aortogram and bilateral lower extremity runoff using 5-Mexican pigtail catheter which was initially placed at the level of the renal arteries and it was pulled into above the bifurcation of the aorta to the right and left common iliac artery. Subsequently I did select the left SFA using a 5-Mexican rim catheter with 035 advantage wire. Then I did advance a 5-Mexican multipurpose catheter with multi hole to the left SFA where I did selective left SFA angiogram. The procedure was completed without any complication. PERIPHERAL ANGIOGRAM: 1. The aorta is angiographically normal. 2. Common iliac artery: The right and left common iliac arteries are angiographically normal. 3. The internal iliac artery. Right and left internal iliac arteries are angiographically normal. 4. The external iliac arteries. The right and left external iliac arteries are angiographically normal. 5. Profunda artery: The right and left profunda are angiographically normal. 6. The SFA: Right and left SFA appeared to have severe disease in the mid portion seems to be in the range of 70-80%. 7. The popliteal: Right and left popliteal appeared to have mild disease only. 8. Below the knee. There are two vessel runoffs below the knee on the right side with posterior tibial and peroneal and occluded anterior tibial and long segment of occlusion. On the left side the opacifications of below the knee was not great. CONCLUSION: 1. Normal aortoiliac segments. 2. Severe bilateral SFA disease. 3. 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 POSTPROCEDURE MANAGEMENT: 1. At this point maximize medical treatment. 2. I do feel that the patient will benefit from atherectomy and balloon angioplasty of the right SFA. MMADDY / SAMN: [id number] /
--- NOTE | 2017-04-17 10:24 | IR ---
EXAMINATION TYPE: IR angio abdominal w runoff DATE OF EXAM: 04/15/2017 COMPARISON: NONE HISTORY: Peripheral vascular occlusive disease. Fluoroscopy was provided to the referring clinician. See dictated report from cardiology.
== END 2017-04-15 21:26 | disposition home or self-care (01) ==
LOC: CATHCVL 10:08 → 3OBS 13:35 → CATHCVL 21:26
PROVIDERS: ATTEND Internal Medicine Interventional Cardiology
DX: I77.9 Disorder of arteries and arterioles, unspecified (principal); I99.8 Other disorder of circulatory system; L97.419 Non-pressure chronic ulcer of right heel and midfoot with unspecified severity; M86.9 Osteomyelitis, unspecified; E11.621 Type 2 diabetes mellitus with foot ulcer; J44.9 Chronic obstructive pulmonary disease, unspecified; E78.5 Hyperlipidemia, unspecified; I10 Essential (primary) hypertension; I25.2 Old myocardial infarction; Z95.1 Presence of aortocoronary bypass graft; Z79.899 Other long term (current) drug therapy; Z79.4 Long term (current) use of insulin; Z79.82 Long term (current) use of aspirin; Z79.02 Long term (current) use of antithrombotics/antiplatelets; Z87.891 Personal history of nicotine dependence
CPT/HCPCS: 36247; 75625; 75716; 99152; 99153; C1894; C1769 ×2; J2001; J2250; J1170; Q9967

== ENCOUNTER → 2017-12-14 | Outpatient (CLI) | payer BC, OTHER ==
[2017-12-14 15:12] LABS: HCT 46.2 % (39.0-53.0); HGB 15.1 gm/dL (13.0-17.5); MCH 28.2 pg (25.0-35.0); MCHC 32.6 g/dL (31.0-37.0); MCV 86.5 fL (80.0-100.0); Platelet Count 254 k/uL (150-450); RBC 5.35 m/uL (4.30-5.90); RDW 13.1 % (11.5-15.5); WBC 8.2 k/uL (3.8-10.6)
[2017-12-14 15:13] LABS: ALT 24 U/L (21-72); AST 15 U/L (17-59); Albumin 4.6 g/dL (3.5-5.0); Alkaline Phosphatase 72 U/L (38-126); Anion Gap 15 mmol/L; Blood Urea Nitrogen 27 mg/dL (9-20); Calcium 9.3 mg/dL (8.4-10.2); Carbon Dioxide 24 mmol/L (22-30); Chloride 105 mmol/L (98-107); Glucose 92 mg/dL (74-99); Potassium 4.8 mmol/L (3.5-5.1); Sodium 144 mmol/L (137-145); Total Bilirubin 1.3 mg/dL (0.2-1.3); Total Protein 7.1 g/dL (6.3-8.2)
[2017-12-14 22:12] LABS: Hemoglobin A1C 7.3 % (4.0-6.0)
== END ==
LOC: LABWHC1 14:36
PROVIDERS: ATTEND Thoracic Surgery (Cardiothoracic Vascular Surgery)
DX: E63.8 Other specified nutritional deficiencies (principal); E13.621 Other specified diabetes mellitus with foot ulcer
CPT/HCPCS: 36415; 80053; 83036; 84134; 85027

== ENCOUNTER → 2018-09-17 | Outpatient (CLI) | payer BC ==
[2018-09-17 12:34] LABS: Basophils # (A) 0.1 k/uL (0-0.2); Basophils % (A) 1 %; Eosinophils # (A) 0.3 k/uL (0-0.7); Eosinophils % (A) 3 %; HCT 42.6 % (39.0-53.0); HGB 13.7 gm/dL (13.0-17.5); Lymphocytes # (A) 1.9 k/uL (1.0-4.8); Lymphocytes % (A) 18 %; MCH 28.8 pg (25.0-35.0); MCHC 32.2 g/dL (31.0-37.0); MCV 89.4 fL (80.0-100.0); Mean Platelet Volume 6.7; Monocytes # (A) 0.5 k/uL (0-1.0); Monocytes % (A) 5 %; Neutrophils # (A) 7.3 k/uL (1.3-7.7); Neutrophils % (A) 73 %; Platelet Count 188 k/uL (150-450); RBC 4.77 m/uL (4.30-5.90); RDW 13.5 % (11.5-15.5); WBC 10.1 k/uL (3.8-10.6)
--- NOTE | 2018-09-17 13:10 | XR ---
Left foot HISTORY: Nonhealing wound first digit, osteomyelitis 3 views of the left foot Soft tissue swelling noted in the medial aspect of the first digit of the left foot. Degenerative belkis nge present at the metatarsophalangeal joint of the first digit. Alignment is maintained, bone minera lization is normal. No periostitis to suggest osteomyelitis. No fracture or dislocation. IMPRESSION: Soft tissue swelling. Consider bone scan or MRI for increased sensitivity as indicated. O steoarthritic changes first digit.
[2018-09-17 13:30] LABS: Erythrocyte Sedimentation Rate 12 mm/hr (0-15)
== END | disposition home or self-care (01) ==
LOC: RADXRMAIN 10:33
PROVIDERS: ATTEND Family Medicine
DX: M19.072 Primary osteoarthritis, left ankle and foot (principal); M79.89 Other specified soft tissue disorders; E11.69 Type 2 diabetes mellitus with other specified complication; M86.8X8 Other osteomyelitis, other site
CPT/HCPCS: 85025; 85652

== ENCOUNTER → 2018-10-07 | Outpatient (CLI) | payer BC ==
--- NOTE | 2018-10-07 13:36 | NM ---
EXAMINATION TYPE: NM bone 3 phase DATE OF EXAM: 10/07/2018 COMPARISON: 03/29/2017, x-ray 2:15 HISTORY: Open wound left first digit Triple phase bone scintigraphy was performed following the injection of 23.9 mCi Tc 99m MDP. Immedia te images and 5 hours post injection images acquired. FINDINGS: There is increased perfusion to the right ankle and foot. There is increased soft tissue uptake within the soft tissues of the right ankle and foot. No corresp onding uptake within the left foot. Delayed imaging demonstrates faint uptake involving the tarsal javed reba and first MTP bilaterally likely post arthritic. IMPRESSION: 1. No diagnostic evidence of osteomyelitis of the left first digit. 2. Findings suggest cellulitis of the right ankle and foot.
== END | disposition home or self-care (01) ==
LOC: RADNMMAIN 07:34
PROVIDERS: ATTEND Family Medicine
DX: M86.8X7 Other osteomyelitis, ankle and foot (principal)
CPT/HCPCS: 78315; A9503

== ENCOUNTER 2020-04-15 17:46 | Emergency (ER) | payer BC, OTHER ==
[2020-04-15 17:53] VITALS: TEMP 98.1
[2020-04-15] MEDS ORDERED: DIPH,PERTUS(ACELL)TETVAC-LF 0.5 ML VIAL IM ONE (18:42)
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
[2020-04-15] MEDS ORDERED: CEPHALEXIN 500 MG CAP PO STA (20:01)
[2020-04-15] MEDS ORDERED: CEPHALEXIN 500MG STARTER PACK 4 CAP BTL PO STA (20:01)
[2020-04-15 20:14] VITALS: BP 168/82; PULSE 81; RESP 16
== END 2020-04-15 20:13 | disposition home or self-care (01) ==
LOC: EC 17:46
DX: S91.132A Puncture wound without foreign body of left great toe without damage to nail, initial encounter (principal); Z23 Encounter for immunization; E78.5 Hyperlipidemia, unspecified; E11.9 Type 2 diabetes mellitus without complications; I10 Essential (primary) hypertension; I25.2 Old myocardial infarction; J44.9 Chronic obstructive pulmonary disease, unspecified; F17.200 Nicotine dependence, unspecified, uncomplicated; Z79.4 Long term (current) use of insulin; Z79.899 Other long term (current) drug therapy; Z95.1 Presence of aortocoronary bypass graft; Z86.74 Personal history of sudden cardiac arrest; W34.00XA Accidental discharge from unspecified firearms or gun, initial encounter
CPT/HCPCS: 90471; 90715; 99283

== ENCOUNTER 2020-12-27 18:08 | Inpatient (IN) | payer BC, OTHER ==
[2020-12-27] MEDS ORDERED: ACETAMINOPHEN TAB 500 MG TAB PO STA (19:33)
[2020-12-27] MEDS ORDERED: VANCOMYCIN IV PER PHARMACY 1 EACH MISC MISCELLANE PRN (19:35)
[2020-12-27] MEDS ORDERED: VANCOMYCIN 1,500 MG in SODIUM CHLORIDE 0.9% 250 ML IVPB STA (19:42)
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
[2020-12-27 21:05] LABS: Basophils # (A) 0.1 k/uL (0-0.2); Basophils % (A) 0 %; Eosinophils # (A) 0.1 k/uL (0-0.7); Eosinophils % (A) 1 %; HCT 44.3 % (39.0-53.0); HGB 15.1 gm/dL (13.0-17.5); Lymphocytes # (A) 1.1 k/uL (1.0-4.8); Lymphocytes % (A) 7 %; MCH 28.6 pg (25.0-35.0); MCHC 34.2 g/dL (31.0-37.0); MCV 83.6 fL (80.0-100.0); Mean Platelet Volume 7.3; Monocytes # (A) 0.8 k/uL (0-1.0); Monocytes % (A) 5 %; Neutrophils # (A) 13.7 k/uL (1.3-7.7); Neutrophils % (A) 87 %; Platelet Count 281 k/uL (150-450); WBC 15.8 k/uL (3.8-10.6)
--- NOTE | 2020-12-27 21:11 | XR ---
PROCEDURE: XR hand complete LT - 3V DATE AND TIME: 12/27/2020 8:51 PM CLINICAL INDICATION: PHH; Swelling/pain/cellulitis TECHNIQUE: Department protocol COMPARISON: None FINDINGS: Soft tissues: There is thenar soft tissue swelling over and above the generalized prominence left darling d soft tissue swelling. There is no soft tissue emphysema. No radiopaque foreign bodies. Skeletal structures: No fracture or malalignment. There are no bony erosion findings. No focal osteop enia or osteoporosis sclerosis. IMPRESSION: 1. Prominent soft tissue swelling. 2. No radiographic evidence of osteomyelitis.
[2020-12-27 21:13] LABS: ALT 8 U/L (4-49); AST 17 U/L (17-59); African American GFR (CKD) >90 (>60 ml/min/1.73 sqM); Albumin 3.8 g/dL (3.5-5.0); Alkaline Phosphatase 88 U/L (38-126); Anion Gap 7 mmol/L; Blood Urea Nitrogen 27 mg/dL (9-20); Calcium 9.4 mg/dL (8.4-10.2); Carbon Dioxide 30 mmol/L (22-30); Chloride 99 mmol/L (98-107); Glucose 178 mg/dL (74-99); Non-African American GFR(CKD) 89 (>60 ml/min/1.73 sqM); Potassium 5.1 mmol/L (3.5-5.1); Sodium 136 mmol/L (137-145); Total Bilirubin 0.8 mg/dL (0.2-1.3); Total Protein 6.8 g/dL (6.3-8.2)
[2020-12-27 21:20] LABS: INR 0.9 (<1.2); Partial Thromboplastin Time 23.9 sec (22.0-30.0); Prothrombin Time 9.8 sec (9.0-12.0)
[2020-12-27] MEDS: SODIUM CHLORIDE 0.9% 500 ML 500 ML IV SCH (21:36)
[2020-12-27] MEDS ORDERED: ONDANSETRON 4 MG/2 ML VIAL IVP PRN (22:08)
[2020-12-27] MEDS ORDERED: NALOXONE 0.4 MG/ML 1 ML VIAL IV PRN (22:09)
[2020-12-27] MEDS: MORPHINE SULFATE 4 MG/ML SYRINGE IVP PRN (22:17)
[2020-12-28] MEDS: MORPHINE SULFATE 4 MG/ML SYRINGE IVP PRN ×4 (04:54→20:49)
[2020-12-28 07:18] LABS: Glucose,Whole Blood 146 mg/dL (75-99)
[2020-12-28 08:14] LABS: Basophils # (A) 0.1 k/uL (0-0.2); Basophils % (A) 0 %; Eosinophils # (A) 0.2 k/uL (0-0.7); Eosinophils % (A) 2 %; HCT 46.6 % (39.0-53.0); HGB 15.6 gm/dL (13.0-17.5); Lymphocytes # (A) 1.3 k/uL (1.0-4.8); Lymphocytes % (A) 9 %; MCH 28.9 pg (25.0-35.0); MCHC 33.6 g/dL (31.0-37.0); Mean Platelet Volume 7.2; Monocytes # (A) 0.8 k/uL (0-1.0); Monocytes % (A) 5 %; Neutrophils # (A) 12.4 k/uL (1.3-7.7); Neutrophils % (A) 84 %; Platelet Count 265 k/uL (150-450); RBC 5.42 m/uL (4.30-5.90); RDW 13.1 % (11.5-15.5); WBC 14.8 k/uL (3.8-10.6)
[2020-12-28 08:26] LABS: African American GFR (CKD) >90 (>60 ml/min/1.73 sqM); Non-African American GFR(CKD) >90 (>60 ml/min/1.73 sqM)
[2020-12-28] MEDS ORDERED: VANCOMYCIN 1,500 MG in SODIUM CHLORIDE 0.9% 250 ML IVPB SCH (10:00)
[2020-12-28 11:43] LABS: Glucose,Whole Blood 232 mg/dL (75-99)
--- NOTE | 2020-12-28 16:03 | XR ---
Left leg HISTORY: Left great toe wound 3 views of the left foot correlated to prior exam 04/15/2020 There is distortion of the distal phalanx of the first digit present, there is osteopenia at the inte rphalangeal joint as well as joint distortion, fragmentation is noted to the distal aspect of the pro ximal phalanx, there is some sclerosis at the distal phalanx of the first digit as compared to prior exam. There is soft tissue swelling. No evident dislocation. Degenerative changes are again noted at the intertarsal joints. IMPRESSION: Findings consistent with osteomyelitis of the first digit.
[2020-12-28 16:44] LABS: Glucose,Whole Blood 191 mg/dL (75-99)
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
[2020-12-28] MEDS: CEFEPIME 2 GM in SODIUM CHLORIDE 0.9% 100 ML IVPB SCH (17:40)
[2020-12-28] MEDS: INSULIN ASPART (NovoLOG) 100 UNIT/ML VIAL SQ SCH ×2 (17:40→20:48)
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
--- NOTE | 2020-12-28 18:33 | CT ---
EXAMINATION TYPE: CT hand LT w con DATE OF EXAM: 12/28/2020 COMPARISON: None HISTORY: Left hand swelling. Abscess, necrotizing infection. CT DLP: 230.2 mGycm Automated exposure control for dose reduction was used. CONTRAST: Performed with IV Contrast, patient injected with 100 mL of Isovue 300. Images obtained from the distal radius to the tips of the fingers with IV contrast. The metacarpals are intact. Carpal bones are intact. Intercarpal joint spaces are fairly normal. The fingers appear intact. I see no bony destructive process. Contrast images show no pathologic enhancem ent. There is diffuse soft tissue swelling on the dorsum of the hand. I see no evidence of a foreign body. There is no soft tissue air. IMPRESSION: Soft tissue swelling. No fracture. No evidence of osteomyelitis. No evidence of an abscess.
[2020-12-28] MEDS: HEPARIN SODIUM,PORCINE/PF 5,000 UNIT/0.5 ML SYRINGE SQ SCH (20:48)
[2020-12-28] MEDS: VANCOMYCIN 1,500 MG in SODIUM CHLORIDE 0.9% 250 ML IVPB SCH (20:49)
[2020-12-28 20:50] LABS: Glucose,Whole Blood 243 mg/dL (75-99)
[2020-12-29] MEDS: MORPHINE SULFATE 4 MG/ML SYRINGE IVP PRN ×4 (01:00→20:16)
[2020-12-29] MEDS: CEFEPIME 2 GM in SODIUM CHLORIDE 0.9% 100 ML IVPB SCH ×4 (01:02→23:07)
[2020-12-29] MEDS: VANCOMYCIN 1,500 MG in SODIUM CHLORIDE 0.9% 250 ML IVPB SCH ×3 (05:33→20:16)
[2020-12-29 07:39] LABS: Glucose,Whole Blood 156 mg/dL (75-99)
[2020-12-29] MEDS: INSULIN ASPART (NovoLOG) 100 UNIT/ML VIAL SQ SCH ×4 (08:19→20:16)
[2020-12-29] MEDS: HEPARIN SODIUM,PORCINE/PF 5,000 UNIT/0.5 ML SYRINGE SQ SCH ×2 (08:19→20:16)
[2020-12-29] MEDS ORDERED: VANCOMYCIN TROUGH DUE 1 EACH MISC MISCELLANE ONE (11:00)
[2020-12-29 11:47] LABS: Glucose,Whole Blood 169 mg/dL (75-99)
[2020-12-29 12:04] LABS: Basophils % (A) 0 %; Eosinophils # (A) 0.1 k/uL (0-0.7); Eosinophils % (A) 1 %; HCT 41.8 % (39.0-53.0); HGB 13.8 gm/dL (13.0-17.5); Lymphocytes # (A) 1.2 k/uL (1.0-4.8); Lymphocytes % (A) 9 %; MCH 27.7 pg (25.0-35.0); MCHC 33.1 g/dL (31.0-37.0); MCV 83.7 fL (80.0-100.0); Mean Platelet Volume 7.1; Monocytes # (A) 0.6 k/uL (0-1.0); Monocytes % (A) 5 %; Neutrophils # (A) 11.9 k/uL (1.3-7.7); Neutrophils % (A) 85 %; Platelet Count 271 k/uL (150-450); RBC 4.99 m/uL (4.30-5.90); RDW 13.2 % (11.5-15.5)
[2020-12-29 12:46] LABS: African American GFR (CKD) >90 (>60 ml/min/1.73 sqM); Non-African American GFR(CKD) >90 (>60 ml/min/1.73 sqM)
[2020-12-29 12:50] LABS: African American GFR (CKD) >90 (>60 ml/min/1.73 sqM); Anion Gap 9 mmol/L; Blood Urea Nitrogen 19 mg/dL (9-20); Calcium 9.1 mg/dL (8.4-10.2); Carbon Dioxide 26 mmol/L (22-30); Chloride 100 mmol/L (98-107); Creatine Kinase 31 U/L (55-170); Erythrocyte Sedimentation Rate 85 mm/hr (0-15); Glucose 176 mg/dL (74-99); Non-African American GFR(CKD) >90 (>60 ml/min/1.73 sqM); Potassium 4.2 mmol/L (3.5-5.1); Sodium 135 mmol/L (137-145)
[2020-12-29 13:03] LABS: C Reactive Protein 15.7 mg/dL (<1.0)
[2020-12-29 16:30] LABS: Chol/HDL Ratio 5.26; Cholesterol 163 mg/dL (0-200)
[2020-12-29 16:44] LABS: Glucose,Whole Blood 255 mg/dL (75-99)
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
[2020-12-29 20:11] LABS: Glucose,Whole Blood 236 mg/dL (75-99)
[2020-12-30] MEDS: MORPHINE SULFATE 4 MG/ML SYRINGE IVP PRN ×5 (00:57→20:56)
[2020-12-30] MEDS: VANCOMYCIN 1,500 MG in SODIUM CHLORIDE 0.9% 250 ML IVPB SCH ×3 (03:10→20:45)
[2020-12-30 06:54] LABS: Glucose,Whole Blood 159 mg/dL (75-99)
[2020-12-30] MEDS: INSULIN ASPART (NovoLOG) 100 UNIT/ML VIAL SQ SCH ×4 (07:47→20:45)
[2020-12-30] MEDS: HEPARIN SODIUM,PORCINE/PF 5,000 UNIT/0.5 ML SYRINGE SQ SCH ×2 (07:48→20:45)
[2020-12-30] MEDS: CEFEPIME 2 GM in SODIUM CHLORIDE 0.9% 100 ML IVPB SCH ×3 (07:48→23:07)
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
[2020-12-30 11:01] LABS: Glucose,Whole Blood 169 mg/dL (75-99)
[2020-12-30 16:21] LABS: Glucose,Whole Blood 263 mg/dL (75-99)
--- NOTE | 2020-12-30 18:42 | PN ---
PROGRESS NOTE DATE OF SERVICE: 12/30/2020 REASON FOR FOLLOWUP: 1. Left hand cellulitis. 2. Left big toe wound underlying osteomyelitis. INTERVAL HISTORY: The patient is currently afebrile. The patient is breathing comfortably. Denies having any chest pain. No shortness of breath or cough. No abdominal pain. The pain to the left hand has decreased. No diarrhea. PHYSICAL EXAMINATION: VITAL SIGNS: Blood pressure 139/65, pulse of 71, temperature 98.2. He is 99% on room air. GENERAL DESCRIPTION: A middle-aged male lying in bed in no distress. RESPIRATORY SYSTEM: Unlabored breathing, clear to auscultation anteriorly. HEART: S1, S2. Regular rate and rhythm. ABDOMEN: Soft, no tenderness. EXTREMITIES: Left big toe is currently dressed up. No obvious drainage on the dressing. Left hand swelling and redness has decreased. LABS: No new labs have been obtained today. Blood cultures have been negative so far. DIAGNOSTIC IMPRESSION AND PLAN: 1. Patient with left hand cellulitis with overall improvement. Continue cefepime and vancomycin. 2. Patient with left big toe osteomyelitis. Cultures are currently pending. Patient is covered with cefepime and Vanco. He will likely need a PICC line for outpatient antibiotics and continue supportive care. MMODL / IJN: [id number] /
[2020-12-30 20:22] LABS: Glucose,Whole Blood 187 mg/dL (75-99)
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
[2020-12-31] MEDS: MORPHINE SULFATE 4 MG/ML SYRINGE IVP PRN ×2 (02:13→07:44)
[2020-12-31] MEDS: VANCOMYCIN 1,500 MG in SODIUM CHLORIDE 0.9% 250 ML IVPB SCH ×3 (04:25→20:59)
[2020-12-31 07:12] LABS: Glucose,Whole Blood 172 mg/dL (75-99)
[2020-12-31] MEDS: CEFEPIME 2 GM in SODIUM CHLORIDE 0.9% 100 ML IVPB SCH ×2 (07:37→16:13)
[2020-12-31] MEDS: HEPARIN SODIUM,PORCINE/PF 5,000 UNIT/0.5 ML SYRINGE SQ SCH ×2 (07:37→21:05)
[2020-12-31] MEDS: INSULIN ASPART (NovoLOG) 100 UNIT/ML VIAL SQ SCH ×4 (07:37→22:13)
[2020-12-31 09:25] LABS: Basophils # (A) 0.05 X 10*3/uL (0.00-0.10); Basophils % (A) 0.5 %; Eosinophils # (A) 0.14 X 10*3/uL (0.04-0.35); Eosinophils % (A) 1.3 %; HGB 13.8 g/dL (13.0-17.0); Lymphocytes # (A) 1.32 X 10*3/uL (0.90-5.00); MCH 27.8 pg (27.0-32.0); MCHC 32.9 g/dL (32.0-37.0); MCV 84.5 fL (80.0-97.0); Mean Platelet Volume 9.9 fL (9.5-12.2); Monocytes # (A) 0.78 X 10*3/uL (0.20-1.00); Monocytes % (A) 7.1 %; Neutrophils # (A) 8.68 X 10*3/uL (1.80-7.70); Neutrophils % (A) 78.5 %; Platelet Count 278 X 10*3/uL (140-440); RBC 4.97 X 10*6/uL (4.40-5.60); RDW 12.4 % (11.5-14.5); WBC 11.04 X 10*3/uL (4.50-10.00)
[2020-12-31 09:51] LABS: African American GFR (CKD) 122.3 (60.0-200.0); Anion Gap 7.4 mmol/L (4.00-12.00); BUN/Creat Ratio 22.86 Ratio (12.00-20.00); C Reactive Protein 8.9 mg/dL (0.0-0.8); Calcium 9.1 mg/dL (8.7-10.3); Carbon Dioxide 29.6 mmol/L (21.6-31.8); Non-African American GFR(CKD) 105.5 (60.0-200.0); Potassium 4.3 mmol/L (3.5-5.5)
--- NOTE | 2020-12-31 11:31 | PN ---
PROGRESS NOTE This is a 55-year-old gentleman who has a history of chronic wound, left foot big toe with osteo. The patient came with swelling and redness of the left hand palmar aspect involving the middle finger. The patient has had multiple calluses on the palmar aspect of hand. Today redness is less. The patient is on IV antibiotic and Silvadene cream. Today we have changed the dressing. The patient started moving middle fingers and it is not painful. PLAN: Continue with IV antibiotic and Silvadene cream. MMODL / IJN: [id number] /
[2020-12-31 11:34] LABS: Glucose,Whole Blood 168 mg/dL (75-99)
[2020-12-31] MEDS: traMADol 50 MG TAB PO PRN ×2 (12:29→18:42)
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
[2020-12-31 17:00] LABS: Glucose,Whole Blood 212 mg/dL (75-99)
[2020-12-31] MEDS: FAMOTIDINE 20 MG/2 ML VIAL IV SCH (21:05)
[2020-12-31 21:13] LABS: Glucose,Whole Blood 373 mg/dL (75-99)
[2020-12-31 21:46] LABS: Glucose,Whole Blood 299 mg/dL (75-99)
--- NOTE | 2021-01-01 00:04 | PN ---
PROGRESS NOTE DATE OF SERVICE: 12/31/2020 REASON FOR FOLLOWUP: 1. Left hand cellulitis. 2. Left big toe osteomyelitis. INTERVAL HISTORY: Patient is currently afebrile. The patient is breathing comfortably. The patient denies having any chest pain, shortness of breath, cough, abdominal pain. Pain and discomfort to the left hand and left foot is currently improved. PHYSICAL EXAMINATION: Blood pressure 153/70 with a pulse of 64, temperature 98. He is 99% room air. General description: The patient is a middle-aged male lying in bed in no distress. Respiratory system: Unlabored breathing, clear to auscultation anteriorly. Heart S1, S2. Regular rate and rhythm. Abdomen soft, no tenderness. The left hand swelling has decreased. LABS: White count down to 11,000, BUN of 16, creatinine 0.7. Cultures are currently pending. DIAGNOSTIC IMPRESSION AND PLAN: 1. Patient with left hand cellulitis, overall clinical improvement, cefepime and vancomycin. 2. Patient with left big toe osteomyelitis. Vascular surgery recommended no debridement or deep culture. Superficial cultures are pending. The patient to continue cefepime and vancomycin. Will need a PICC line for outpatient antibiotics and continue supportive care. MMODL / IJN: [id number] /
[2021-01-01] MEDS: traMADol 50 MG TAB PO PRN ×4 (00:52→20:26)
[2021-01-01] MEDS: CEFEPIME 2 GM in SODIUM CHLORIDE 0.9% 100 ML IVPB SCH ×3 (00:53→16:12)
[2021-01-01] MEDS ORDERED: VANCOMYCIN TROUGH DUE 1 EACH MISC MISCELLANE ONE (03:00)
[2021-01-01] MEDS: VANCOMYCIN 1,500 MG in SODIUM CHLORIDE 0.9% 250 ML IVPB SCH ×2 (05:03→17:08)
[2021-01-01 07:05] LABS: Glucose,Whole Blood 182 mg/dL (75-99)
[2021-01-01] MEDS: INSULIN ASPART (NovoLOG) 100 UNIT/ML VIAL SQ SCH ×4 (07:49→22:00)
[2021-01-01] MEDS: FAMOTIDINE 20 MG/2 ML VIAL IV SCH (07:50)
[2021-01-01] MEDS: HEPARIN SODIUM,PORCINE/PF 5,000 UNIT/0.5 ML SYRINGE SQ SCH ×2 (07:50→20:27)
[2021-01-01 07:58] LABS: Basophils # (A) 0.1 k/uL (0-0.2); Basophils % (A) 1 %; Eosinophils # (A) 0.2 k/uL (0-0.7); Eosinophils % (A) 2 %; HCT 42.2 % (39.0-53.0); HGB 13.8 gm/dL (13.0-17.5); Lymphocytes # (A) 1.2 k/uL (1.0-4.8); Lymphocytes % (A) 11 %; MCH 27.5 pg (25.0-35.0); MCHC 32.7 g/dL (31.0-37.0); Mean Platelet Volume 7.3; Monocytes # (A) 0.5 k/uL (0-1.0); Monocytes % (A) 5 %; Neutrophils # (A) 9.1 k/uL (1.3-7.7); Neutrophils % (A) 81 %; Platelet Count 299 k/uL (150-450); RBC 5.02 m/uL (4.30-5.90); RDW 13.1 % (11.5-15.5); WBC 11.2 k/uL (3.8-10.6)
[2021-01-01 08:14] LABS: African American GFR (CKD) >90 (>60 ml/min/1.73 sqM); Anion Gap 6 mmol/L; Blood Urea Nitrogen 18 mg/dL (9-20); Carbon Dioxide 29 mmol/L (22-30); Chloride 100 mmol/L (98-107); Glucose 203 mg/dL (74-99); Non-African American GFR(CKD) >90 (>60 ml/min/1.73 sqM); Potassium 4.3 mmol/L (3.5-5.1); Sodium 135 mmol/L (137-145)
[2021-01-01 11:26] LABS: Glucose,Whole Blood 180 mg/dL (75-99)
[2021-01-01 16:55] LABS: Glucose,Whole Blood 219 mg/dL (75-99)
[2021-01-01] MEDS: FAMOTIDINE 20 MG TAB PO SCH (20:27)
[2021-01-01 21:06] LABS: Glucose,Whole Blood 183 mg/dL (75-99)
[2021-01-02] MEDS: CEFEPIME 2 GM in SODIUM CHLORIDE 0.9% 100 ML IVPB SCH ×3 (00:18→15:10)
[2021-01-02] MEDS: MORPHINE SULFATE 4 MG/ML SYRINGE IVP PRN ×4 (03:44→17:09)
--- NOTE | 2021-01-02 05:25 | PN ---
PROGRESS NOTE DATE OF SERVICE: 01/01/2021 REASON FOR FOLLOWUP: 1. Left hand cellulitis. 2. Left big toe osteomyelitis. INTERVAL HISTORY: The patient is currently afebrile. The patient is breathing comfortably. The patient denies having any chest pain, shortness of breath or cough. No abdominal pain. Pain to the left hand and left big toe is currently controlled. PHYSICAL EXAMINATION: Blood pressure is 181/85, pulse of 68, temperature 98.4. He is 96% on room air. General description is a middle-aged male lying in in no distress. Respiratory system: Unlabored breathing, clear to auscultation anteriorly. Heart S1, S2. Regular rate and rhythm. Abdomen soft, no tenderness. Left hand swelling and redness has improved. Left big toe still has some swelling. Redness has decreased. No drainage. LABS: Hemoglobin is 13.8, white count 11.2, BUN of 18, creatinine 0.78. DIAGNOSTIC IMPRESSION AND PLAN: 1. Patient with left big toe osteomyelitis. Local culture showing Staph aureus, sensitivity is pending. Will wait for the culture to finalize to determine discharge antibiotics. He will need a PICC line for outpatient antibiotic. This was discussed with the RN to arrange for the outpatient antibiotic. 2. Patient with left hand cellulitis, clinically responding to the cefepime and vancomycin, to continue. MMODL / IJN: [id number] /
[2021-01-02] MEDS: VANCOMYCIN 1,500 MG in SODIUM CHLORIDE 0.9% 250 ML IVPB SCH (05:45)
[2021-01-02 06:57] LABS: Glucose,Whole Blood 198 mg/dL (75-99)
[2021-01-02] MEDS: INSULIN ASPART (NovoLOG) 100 UNIT/ML VIAL SQ SCH ×4 (07:43→21:44)
[2021-01-02] MEDS: FAMOTIDINE 20 MG TAB PO SCH ×2 (07:43→20:21)
[2021-01-02] MEDS: HEPARIN SODIUM,PORCINE/PF 5,000 UNIT/0.5 ML SYRINGE SQ SCH ×2 (07:44→20:21)
[2021-01-02 11:33] LABS: Glucose,Whole Blood 177 mg/dL (75-99)
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
[2021-01-02] MEDS: amLODIPine 5 MG TAB PO SCH (15:10)
[2021-01-02 16:36] LABS: Glucose,Whole Blood 175 mg/dL (75-99)
[2021-01-02] MEDS: traMADol 50 MG TAB PO PRN (20:20)
[2021-01-02 20:50] LABS: Glucose,Whole Blood 240 mg/dL (75-99)
--- NOTE | 2021-01-02 22:49 | PN ---
PROGRESS NOTE DATE OF SERVICE: 01/02/2021 REASON FOR FOLLOWUP: 1. Left hand cellulitis. 2. Left big toe osteomyelitis MSSA. INTERVAL HISTORY: Patient is currently afebrile. The patient is breathing comfortably. The patient denies having any chest pain. No shortness of breath. No cough. No abdominal pain. Overall pain and discomfort to the left hand and foot currently decreased intensity. No abdominal pain or diarrhea. PHYSICAL EXAMINATION: Blood pressure is 164/76, pulse of 84, temperature 98.3. He is 99% on room air. General description: The patient is a middle-aged male lying in bed in no distress. Respiratory system: Unlabored breathing. Clear to auscultation anteriorly. Heart S1, S2. Regular rate and rhythm. Abdomen soft, no tenderness. Left hand swelling and redness has decreased. Left big toe swelling and redness slightly decreased. No drainage. LABS: 85. CRP 8.9. Local culture with MSSA. DIAGNOSTIC IMPRESSION AND PLAN: 1. Patient with left big toe osteomyelitis with culture positive for MSSA. Antibiotic adjusted to cefazolin 2 grams q.8. He will get a PICC line. Currently waiting for outpatient IV antibiotic arrangement before discharge. 2. Left hand cellulitis. Overall improvement and covered with current cefazolin. MMODL / IJN: [id number] /
[2021-01-03] MEDS ORDERED: VANCOMYCIN TROUGH DUE 1 EACH MISC MISCELLANE ONE (05:00)
[2021-01-03 07:05] LABS: Glucose,Whole Blood 199 mg/dL (75-99)
[2021-01-03 07:13] LABS: Potassium 4.5 mmol/L (3.5-5.1)
[2021-01-03 07:14] LABS: African American GFR (CKD) >90 (>60 ml/min/1.73 sqM); Anion Gap 5 mmol/L; Blood Urea Nitrogen 17 mg/dL (9-20); Calcium 9.2 mg/dL (8.4-10.2); Carbon Dioxide 30 mmol/L (22-30); Chloride 102 mmol/L (98-107); Glucose 188 mg/dL (74-99); Non-African American GFR(CKD) >90 (>60 ml/min/1.73 sqM); Sodium 137 mmol/L (137-145)
[2021-01-03] MEDS: HEPARIN SODIUM,PORCINE/PF 5,000 UNIT/0.5 ML SYRINGE SQ SCH ×2 (07:42→20:41)
[2021-01-03] MEDS: INSULIN ASPART (NovoLOG) 100 UNIT/ML VIAL SQ SCH ×4 (07:43→20:41)
[2021-01-03] MEDS: amLODIPine 5 MG TAB PO SCH ×2 (07:43→20:41)
[2021-01-03] MEDS: FAMOTIDINE 20 MG TAB PO SCH ×2 (07:43→20:40)
--- NOTE | 2021-01-03 08:11 | IR ---
PICC LINE PLACEMENT: HISTORY: Infection requiring long-term antibiotic therapy PROCEDURE: Ultrasound and fluoroscopic guidance of PICC line placement. COMPLICATIONS: None ANESTHESIA: 1. 1% Lidocaine locally. FINDINGS/TECHNIQUE: The procedure was explained to the patient. The risks, complications, benefits and alternatives were discussed and any questions were answered. Informed consent was obtained. The patient was placed supine on the fluoroscopic table and prepped and draped in the usual sterile fash ion. Utilizing a 21 gauge needle and sonographic and fluoroscopic guidance, access in the left basi lic vein was achieved and there is placement of a 0.018 guidewire. The vein is patent. A 4-F sheath was placed over the guidewire. The guidewire and dilator were removed and a 4-F. PICC line was plac ed through the sheath with the tip at the level of the SVC. The sheath was removed, the catheter was flushed and sutured into position. The patient was stable throughout the procedure and remained sta ble upon discharge from the Department of Radiology. The vein puncture was patent under ultrasound. A vickers scale image was obtained to document patency of the vein punctured. All elements of the maximal barrier technique were utilized. FLUOROSCOPY TIME: 0.2 minutes and 1 minute submitted IMPRESSION: Successful PICC line placement under ultrasound and fluoroscopic guidance.
[2021-01-03 09:21] LABS: Basophils # (A) 0.07 X 10*3/uL (0.00-0.10); Basophils % (A) 0.7 %; Eosinophils # (A) 0.18 X 10*3/uL (0.04-0.35); Eosinophils % (A) 1.8 %; HCT 42.5 % (39.6-50.0); HGB 13.7 g/dL (13.0-17.0); Lymphocytes # (A) 1.66 X 10*3/uL (0.90-5.00); Lymphocytes % (A) 16.4 %; MCH 27.7 pg (27.0-32.0); MCHC 32.2 g/dL (32.0-37.0); MCV 85.9 fL (80.0-97.0); Mean Platelet Volume 10.2 fL (9.5-12.2); Monocytes # (A) 0.81 X 10*3/uL (0.20-1.00); Neutrophils # (A) 7.29 X 10*3/uL (1.80-7.70); Neutrophils % (A) 72.2 %; Platelet Count 324 X 10*3/uL (140-440); RBC 4.95 X 10*6/uL (4.40-5.60); RDW 12.3 % (11.5-14.5)
[2021-01-03] MEDS: MORPHINE SULFATE 4 MG/ML SYRINGE IVP PRN (10:04)
[2021-01-03 11:43] LABS: Glucose,Whole Blood 235 mg/dL (75-99)
--- NOTE | 2021-01-03 13:52 | PN ---
PROGRESS NOTE DATE OF SERVICE: 01/03/2021 REASON FOR FOLLOWUP: 1. Left big toe osteomyelitis. 2. Left hand cellulitis. INTERVAL HISTORY: The patient is afebrile. The patient is breathing comfortably. Patient denies having any chest pain. No shortness of breath or cough. No abdominal pain or diarrhea. PHYSICAL EXAMINATION: Blood pressure 94/87, temperature 98.6. He is 98% on room air. General description is a middle-aged male lying in in no distress. Respiratory system: Unlabored breathing, is clear to auscultation anteriorly. Heart S1, S2. Regular rate and rhythm. ABDOMEN: Soft, no tenderness. Left big toe is currently dressed up. No obvious drainage on the dressing. LABS: Hemoglobin 13.7, white count 10.1, BUN of 17, creatinine 0.83. DIAGNOSTIC IMPRESSION AND PLAN: Patient with left big toe osteomyelitis with chronic nonhealing wound in this patient currently covered with cefazolin, is waiting for outpatient IV antibiotic arrangement before discharge and will monitor clinical course closely. MMODL / IJN: [id number] /
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
[2021-01-03] MEDS: HYDROcodone/APAP 5-325MG 1 EACH TAB PO PRN ×2 (14:34→20:41)
[2021-01-03] MEDS: METOPROLOL TARTRATE 12.5 MG TAB PO SCH ×2 (14:34→20:40)
[2021-01-03 15:22] VITALS: BMI 23.7
[2021-01-03 16:21] LABS: Glucose,Whole Blood 240 mg/dL (75-99)
[2021-01-03 20:20] LABS: Glucose,Whole Blood 187 mg/dL (75-99)
[2021-01-04] MEDS: HYDROcodone/APAP 5-325MG 1 EACH TAB PO PRN ×2 (05:47→12:56)
[2021-01-04 07:22] LABS: Glucose,Whole Blood 186 mg/dL (75-99)
[2021-01-04] MEDS: METOPROLOL TARTRATE 12.5 MG TAB PO SCH (07:35)
[2021-01-04] MEDS: INSULIN ASPART (NovoLOG) 100 UNIT/ML VIAL SQ SCH ×2 (07:35→12:57)
[2021-01-04] MEDS: FAMOTIDINE 20 MG TAB PO SCH (07:35)
[2021-01-04] MEDS: HEPARIN SODIUM,PORCINE/PF 5,000 UNIT/0.5 ML SYRINGE SQ SCH (07:35)
[2021-01-04] MEDS: amLODIPine 5 MG TAB PO SCH (07:35)
[2021-01-04 11:43] LABS: Glucose,Whole Blood 222 mg/dL (75-99)
[2021-01-04 15:19] VITALS: BP 121/71; PULSE 60; RESP 16; TEMP 97.9
--- NOTE | 2021-01-04 17:56 | PN ---
PROGRESS NOTE DATE OF SERVICE: 01/04/2021 REASON FOR FOLLOWUP: 1. Left big toe osteomyelitis. 2. Left hand cellulitis. INTERVAL HISTORY: The patient is currently afebrile. Patient is breathing comfortably. The patient denies having any chest pain or shortness of breath or cough. No nausea, vomiting. No abdominal pain or pain to the left hand or big toe. PHYSICAL EXAMINATION: Blood pressure is 149/78 with a pulse of 72, temperature 98. He is 97% on room air. GENERAL DESCRIPTION: The patient is a middle-aged male lying in in no distress. Respiratory system: Unlabored breathing, clear to auscultation anteriorly. Heart S1, S2. Regular rate and rhythm. ABDOMEN: Soft. No tenderness. Right big toe swelling and redness decreased. LABS: No new labs have been obtained today. DIAGNOSTIC IMPRESSION AND PLAN: Patient with left big toe osteomyelitis in this patient with left hand cellulitis. The patient did have overall improvement on cefazolin. Finish therapy with cefazolin 2 g q.8h for total of 6 weeks with weekly monitoring of CBC, BMP and sedimentation rate and close outpatient followup. MMODL / IJN: [id number] /
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
== END 2021-01-04 15:52 | disposition home health service (06) | DRG 638 ==
LOC: EC 18:08 → 4SSUR 22:28 → OBSVTOIN 12-29 12:12
PROVIDERS: ADMIT Family Medicine; ATTEND Family Medicine
PROC: 02HV33Z Insertion of Infusion Device into Superior Vena Cava, Percutaneous Approach (ICD-10-PCS; principal; 2021-01-02 09:50)
DX: E11.69 Type 2 diabetes mellitus with other specified complication (principal); M86.172 Other acute osteomyelitis, left ankle and foot; L03.114 Cellulitis of left upper limb; E11.65 Type 2 diabetes mellitus with hyperglycemia; E11.621 Type 2 diabetes mellitus with foot ulcer; B95.61 Methicillin susceptible Staphylococcus aureus infection as the cause of diseases classified elsewhere; E78.5 Hyperlipidemia, unspecified; Z87.891 Personal history of nicotine dependence; I10 Essential (primary) hypertension; I25.2 Old myocardial infarction; E11.42 Type 2 diabetes mellitus with diabetic polyneuropathy; J44.9 Chronic obstructive pulmonary disease, unspecified; L97.529 Non-pressure chronic ulcer of other part of left foot with unspecified severity; L84 Corns and callosities; W34.00XA Accidental discharge from unspecified firearms or gun, initial encounter; Z79.2 Long term (current) use of antibiotics; Z79.4 Long term (current) use of insulin; Z82.49 Family history of ischemic heart disease and other diseases of the circulatory system; Z83.3 Family history of diabetes mellitus; Z86.74 Personal history of sudden cardiac arrest; Z95.1 Presence of aortocoronary bypass graft; Z20.822 Contact with and (suspected) exposure to COVID-19
CPT/HCPCS: 36415; 36573; 80048; 80053; 80061; 80202; 82550; 82565; 83605; 84145; 85025; 85610; 85652; 85730; 86140; 87040; 87070; 87077; 87186; 87205; 87635; 96365; 96375; 99284

== ENCOUNTER 2022-02-15 15:09 | Inpatient (IN) | payer BC, OTHER ==
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
[2022-02-15] MEDS ORDERED: PIPERACILLIN-TAZOBACTAM 3.375 GM in SODIUM CHLORIDE 0.9% 100 ML IVPB STA (16:59)
[2022-02-15] MEDS ORDERED: VANCOMYCIN IV PER PHARMACY 1 EACH MISC MISCELLANE PRN (17:02)
[2022-02-15] MEDS ORDERED: VANCOMYCIN 1,500 MG in SODIUM CHLORIDE 0.9% 250 ML IVPB STA (17:05)
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
[2022-02-15] MEDS ORDERED: ACETAMINOPHEN TAB 325 MG TAB PO PRN (17:22)
[2022-02-15] MEDS ORDERED: ONDANSETRON 4 MG/2 ML VIAL IVP PRN (17:22)
[2022-02-15] MEDS ORDERED: NALOXONE 0.4 MG/ML 1 ML VIAL IV PRN (17:22)
[2022-02-15 18:24] LABS: Basophils # (A) 0.1 k/uL (0-0.2); Basophils % (A) 0 %; Eosinophils # (A) 0.3 k/uL (0-0.7); Eosinophils % (A) 2 %; HGB 12.9 gm/dL (13.0-17.5); Hypochromasia Slight; Lymphocytes # (A) 1.5 k/uL (1.0-4.8); Lymphocytes % (A) 8 %; MCH 25.6 pg (25.0-35.0); MCV 85.2 fL (80.0-100.0); Mean Platelet Volume 7.3; Monocytes # (A) 0.4 k/uL (0-1.0); Monocytes % (A) 3 %; Neutrophils # (A) 15.6 k/uL (1.3-7.7); Neutrophils % (A) 87 %; Platelet Count 505 k/uL (150-450); RBC 5.05 m/uL (4.30-5.90); RDW 13.3 % (11.5-15.5)
[2022-02-15] MEDS: SODIUM CHLORIDE 0.9% 1,000 ML IV SCH (18:40)
[2022-02-15 20:44] LABS: Glucose,Whole Blood 378 mg/dL (70-110)
[2022-02-15] MEDS: INSULIN ASPART (NovoLOG) 100 UNIT/ML VIAL SQ SCH (22:32)
[2022-02-15] MEDS: METOPROLOL TARTRATE 12.5 MG TAB PO SCH (22:32)
[2022-02-15] MEDS: HYDROcodone/APAP 5-325MG 1 EACH TAB PO PRN (22:32)
[2022-02-15] MEDS: amLODIPine 5 MG TAB PO SCH (22:32)
[2022-02-15] MEDS: FAMOTIDINE 20 MG TAB PO SCH (22:32)
[2022-02-16] MEDS: HEPARIN SODIUM,PORCINE/PF 5,000 UNIT/0.5 ML SYRINGE SQ SCH ×5 (00:18→21:27)
[2022-02-16] MEDS: PIPERACILLIN-TAZOBACTAM 3.375 GM in SODIUM CHLORIDE 0.9% 100 ML IVPB SCH ×3 (01:56→17:51)
[2022-02-16 06:06] LABS: Glucose,Whole Blood 195 mg/dL (70-110)
[2022-02-16 06:50] LABS: Glucose,Whole Blood 182 mg/dL (70-110)
[2022-02-16] MEDS: VANCOMYCIN 1,500 MG in SODIUM CHLORIDE 0.9% 250 ML IVPB SCH ×2 (07:58→21:23)
[2022-02-16] MEDS: FAMOTIDINE 20 MG TAB PO SCH ×2 (07:58→21:23)
[2022-02-16] MEDS: METOPROLOL TARTRATE 12.5 MG TAB PO SCH ×2 (07:58→21:23)
[2022-02-16] MEDS: INSULIN ASPART (NovoLOG) 100 UNIT/ML VIAL SQ SCH ×4 (07:58→21:23)
[2022-02-16] MEDS: amLODIPine 5 MG TAB PO SCH ×2 (07:58→21:23)
[2022-02-16 09:28] LABS: African American GFR (CKD) 109.5 (60.0-200.0); Non-African American GFR(CKD) 94.5 (60.0-200.0)
[2022-02-16] MEDS: HYDROcodone/APAP 5-325MG 1 EACH TAB PO PRN ×2 (10:32→22:34)
[2022-02-16 11:27] LABS: Glucose,Whole Blood 307 mg/dL (70-110)
[2022-02-16 16:38] LABS: Glucose,Whole Blood 380 mg/dL (70-110)
[2022-02-16 16:46] LABS: African American GFR (CKD) 108.1 (60.0-200.0); Anion Gap 10.7 mmol/L (10.00-18.00); BUN/Creat Ratio 24.4 Ratio (12.00-20.00); Blood Urea Nitrogen 22.2 mg/dL (9.0-27.0); Calcium 9.4 mg/dL (8.7-10.3); Carbon Dioxide 26.9 mmol/L (20.0-27.5); Non-African American GFR(CKD) 93.2 (60.0-200.0); Potassium 5.7 mmol/L (3.5-5.5)
[2022-02-16 17:18] LABS: Basophils # (A) 0.09 X 10*3/uL (0.00-0.10); Basophils % (A) 0.5 %; Eosinophils # (A) 0.26 X 10*3/uL (0.04-0.35); Eosinophils % (A) 1.5 %; HCT 40.3 % (39.6-50.0); HGB 12.4 g/dL (13.0-17.0); Immature Grans, Automated 1.2 %; Lymphocytes # (A) 2.12 X 10*3/uL (0.90-5.00); Lymphocytes % (A) 12.4 %; MCH 26.3 pg (27.0-32.0); MCHC 30.8 g/dL (32.0-37.0); MCV 85.4 fL (80.0-97.0); Mean Platelet Volume 9.9 fL (9.5-12.2); Monocytes # (A) 0.96 X 10*3/uL (0.20-1.00); Monocytes % (A) 5.6 %; NRBC Per 100 WBC 0 /100 WBCS (0.0-0.0); Neutrophils % (A) 78.8 %; Platelet Count 504 X 10*3/uL (140-440); RBC 4.72 X 10*6/uL (4.40-5.60); RDW 13.1 % (11.5-14.5); WBC 17.03 X 10*3/uL (4.50-10.00)
[2022-02-16] MEDS: SODIUM CHLORIDE 0.9% 1,000 ML IV SCH ×2 (17:51→21:27)
[2022-02-16 20:34] LABS: Glucose,Whole Blood 308 mg/dL (70-110)
--- NOTE | 2022-02-16 22:25 | P.CONS ---
History of Present Illness - Reason for Consult Consult date: 02/16/22 Left diabetic foot infection Requesting physician: Rikki Lester - Chief Complaint Left second toe discoloration and pain x days - History of Present Illness Patient is a 56-year-old male with a past medical history significant for diabetes mellitus patient presenting to the ER for evaluation of recent left second toe discoloration apparently the patient did mention he did have a trauma to the left second toe more than a week ago however he was not very clear about the nature of the trauma, patient subsequent noticed a second toe becoming more discolored and black has been complaining of pain which is mostly pressure Rudell aching about 7 out of 10 and radiation with associated swelling redness and some foul-smelling drainage patient mention blood sugar has been elevated as well with the symptom the patient presented to hospital on arrival to the ER the patient was afebrile and no fever have been recorded subsequently prior to her white count of 18,000 with a left shift patient did have normal creatinine patient did have x-ray of the left foot which shows destructive changes in second toe consistent with osteomyelitis with loss of the distal phalanx soft tissue swelling and soft tissue consistent with cellulitis patient was started on vancomycin and Zosyn admitted to the hospital infectious disease was consulted for further management of antibiotic therapy Review of Systems Positive point has been mentioned in the HPI rest of the systems are negative Past Medical History Past Medical History: COPD, Diabetes Mellitus, Hyperlipidemia, Hypertension, Myocardial Infarction ([place]) Additional Past Medical History / Comment(s): 02/10/16 [place]/cardiac arr est/recurrent Vtach-,IDDM type II, pt thinks he has bilateral pedal neuropathy, Last Myocardial Infarction Date:: 2015 History of Any Multi-Drug Resistant Organisms: None Reported Past Surgical History: Coronary Bypass/CABG, Heart Catheterization Additional Past Surgical History / Comment(s): 02/10/16 cardiac cath, 02/13/16 CABG 4 vessel. PICC LINE PLACEMENT LEFT ARM MARCH 2019 Past Anesthesia/Blood Transfusion Reactions: No Reported Reaction Past Psychological History: No Psychological Hx Reported Smoking Status: Former smoker Past Alcohol Use History: None Reported Additional Past Alcohol Use History / Comment(s): Pt started smoking in 1979 and quit in 2015. Past Drug Use History: None Reported - Past Family History Mother Family Medical History: Coronary Artery Disease (CAD), Diabetes Mellitus Father Family Medical History: Diabetes Mellitus Medications and Allergies Home Medications Medication Instructions Recorded Confirmed Type No Known Home Medications 02/15/22 02/15/22 History Allergies Allergy/AdvReac Type Severity Reaction Status Date / Time No Known Allergies Allergy Verified 02/15/22 17:36 Physical Exam Vitals: Vital Signs Temp Pulse Pulse Resp BP BP Pulse Ox 02/16/22 13:40 97.9 F 60 18 103/56 97 02/16/22 08:00 98 18 02/16/22 07:18 98.7 F 98 18 142/70 98 02/16/22 02:00 98.3 F 68 18 136/63 97 02/15/22 20:00 68 18 02/15/22 17:59 98.4 F 84 16 176/85 100 02/15/22 15:23 98.1 F 73 14 131/70 99 Intake and Output 02/15/22 02/16/22 02/16/22 22:59 06:59 14:59 Output Total 2520 Balance -2520 Output: Urine 2520 Other: # Voids 5 1 Weight 83.915 kg GENERAL DESCRIPTION: Middle-aged male lying in bed, no distress. No tachypnea or accessory muscle of respiration use. HEENT: Shows Pallor , no scleral icterus. Oral mucous membrane is dry. No pharyngeal erythema or thrush NECK: Trachea central, no thyromegaly. LUNGS: Unlabored breathing. Clear to auscultation anteriorly. No wheeze or crackle. HEART: S1, S2, regular rate and rhythm. No loud murmur ABDOMEN: Soft, no tenderness , guarding or rigidity, no organomegaly EXTREMITIES: No edema of feet. Left second toe is necrotic with surrounding swelling redness and maceration with foul-smelling drainage SKIN: No rash, no masses palpable. NEUROLOGICAL: The patient is awake, alert, oriented x3, mood and affect normal. Results CBC & Chem 7: 02/16/22 05:48 02/16/22 05:48 Labs: Abnormal Lab Results - Last 24 Hours (Table) 02/15/22 02/15/22 02/15/22 Range/Units 18:10 18:10 20:42 WBC 18.0 H (3.8-10.6) k/uL Hgb 12.9 L (13.0-17.5) gm/dL MCHC 30.0 L (31.0-37.0) g/dL Plt Count 505 H (150-450) k/uL Neutrophils # 15.6 H (1.3-7.7) k/uL POC Glucose (mg/dL) 378 H (70-110) mg/dL Creatine Kinase 21 L (55-170) U/L 02/16/22 02/16/22 02/16/22 Range/Units 06:04 06:48 11:26 WBC (3.8-10.6) k/uL Hgb (13.0-17.5) gm/dL MCHC (31.0-37.0) g/dL Plt Count (150-450) k/uL Neutrophils # (1.3-7.7) k/uL POC Glucose (mg/dL) 195 H 182 H 307 H (70-110) mg/dL Creatine Kinase (55-170) U/L Assessment and Plan (1) Diabetic infection of left foot Current Visit: Yes Status: Acute Code(s): E11.628 - TYPE 2 DIABETES MELLITUS WITH OTHER SKIN COMPLICATIONS; L08.9 - LOCAL INFECTION OF THE SKIN AND SUBCUTANEOUS TISSUE, UNSP SNOMED Code(s): 65774968 (2) Osteomyelitis of second toe of left foot Current Visit: Yes Status: Acute Code(s): M86.9 - OSTEOMYELITIS, UNSPECIFIED SNOMED Code(s): 639562807 Plan: 1patient presented hospital left second toe red gangrene started with a trauma now with evidence of cellulitis and foul-smelling drainage will need to cover for the polymicrobial renee usually associated with this type of infection. 2patient will likely need amputation of the left second toe and debridement as well as deep cultures for which was consulted will be consulted. 3patient to continue vancomycin however switch Zosyn to Unasyn to decrease risk of nephrotoxicity. We will follow on clinical condition and cultures to further adjust medication if needed Thank you for this consultation will follow this patient along with you Time with Patient: Greater than 30
[2022-02-17] MEDS: AMPICILLIN-SULBACTAM 3 GM in SODIUM CHLORIDE 0.9% 100 ML IVPB SCH ×4 (00:31→17:12)
--- NOTE | 2022-02-17 00:52 | P.HPIM ---
History of Present Illness H&P Date: 02/16/22 Chief Complaint: Toe infection Patient is a 56-year-old male with a known history of hypertension, hyperlipidemia, diabetes type 2, coronary disease history of CABG and previous history of left to osteomyelitis presents to ER with complaints of left second toe infection with purulent discharge and foul-smelling worsening for the past 1 week. Patient states that he did have a trauma to the toe and subsequently More discolored and also complaining of aching pain and swelling and redness and foul-smelling discharge. Denies any complaints of fever or chills. No complaints of chest pain or shortness of breath. No nausea vomiting or abdominal pain or diarrhea. Denies any recent illnesses. Patient is currently not taking any medication for diabetes. On admission x-ray of the foot showed destructive changes in the second toe consistent with osteomyelitis with loss of the distal phalanx. Soft tissue swelling and soft tissue injury consistent with cellulitis. The big toe appears to show no evidence of osteomyelitis. There is satisfactory healing of the head of the proximal [place] of the big toe compared to old exam. Laboratory test showed WBC 18.0 hemoglobin 10.9 and platelets 505 Sodium 136 potassium 5.7 chloride 98 BUN 22.2 and creatinine 0.9 and blood sugar is 378 A1c 11.1 Review of Systems Constitutional: Patient denies any fever or chills . Generalized weakness. Abdomen: Patient denied any nausea or vomiting or abd. pain Cardiovascular: Patient denies any chest pain or short of breath no palpitations. Respiratory: patient denied any cough is from production. No shortness of breath Neurologic: Patient denied any numbness or tingling headache. Musculoskeletal: Patient denies any complaints of joint swelling or deformity. Left second toe infection and foul-smelling discharge. Skin: Negative Psychiatric: Negative Endocrine: No heat or cold intolerance. No recent weight gain. Genitourinary: No dysuria or hematuria. All other 14 point ROS negative except the above Past Medical History Past Medical History: COPD, Diabetes Mellitus, Hyperlipidemia, Hypertension, M yocardial Infarction ([place]) Additional Past Medical History / Comment(s): 02/10/16 [place]/cardiac arrest/recurrent Vtach-,IDDM type II, pt thinks he has bilateral pedal neuropathy, Last Myocardial Infarction Date:: 2015 History of Any Multi-Drug Resistant Organisms: None Reported Past Surgical History: Coronary Bypass/CABG, Heart Catheterization Additional Past Surgical History / Comment(s): 02/10/16 cardiac cath, 02/13/16 CABG 4 vessel. PICC LINE PLACEMENT LEFT ARM MARCH 2019 Past Anesthesia/Blood Transfusion Reactions: No Reported Reaction Past Psychological History: No Psychological Hx Reported Smoking Status: Former smoker Past Alcohol Use History: None Reported Additional Past Alcohol Use History / Comment(s): Pt started smoking in 1979 and quit in 2015. Past Drug Use History: None Reported - Past Family History Mother Family Medical History: Coronary Artery Disease (CAD), Diabetes Mellitus Father Family Medical History: Diabetes Mellitus Medications and Allergies Home Medications Medication Instructions Recorded Confirmed Type No Known Home Medications 02/15/22 02/15/22 History Allergies Allergy/AdvReac Type Severity Reaction Status Date / Time No Known Allergies Allergy Verified 02/15/22 17:36 Physical Exam Vitals: Vital Signs Temp Pulse Pulse Resp BP BP Pulse Ox 02/16/22 08:00 98 18 02/16/22 07:18 98.7 F 98 18 142/70 98 02/16/22 02:00 98.3 F 68 18 136/63 97 02/15/22 20:00 68 18 02/15/22 17:59 98.4 F 84 16 176/85 100 02/15/22 15:23 98.1 F 73 14 131/70 99 Intake and Output 02/15/22 02/16/22 02/16/22 22:59 06:59 14:59 Output Total 2520 Balance -2520 Output: Urine 2520 Other: # Voids 5 1 Weight 83.915 kg PHYSICAL EXAMINATION: Patient is lying in the bed comfortably, no acute distress, awake alert and oriented.. HEENT: Normocephalic. Neck is supple. Pupils reactive. Nostrils clear. Oral cavity is moist. Neck reveals no JVD, carotid bruits, or thyromegaly. CHEST EXAMINATION: Trachea is central. Symmetrical expansion. Lung manriquez clear to auscultation and percussion. CARDIAC: Normal S1, S2 with no gallops. No murmurs ABDOMEN: Soft. Bowel sounds present. Nontender. No organomegaly. No abdominal bruits. Extremities: reveal no edema. Left second toe ulcer/wound redness and swelling and foul-smelling discharge. No clubbing or cyanosis Neurologically awake, alert, oriented x3 with well-coordinated movements. No focal deficits noted Skin: No rash or skin lesions. Psychiatric: Coperative. Nonsuicidal, anxious. Musculoskeletal: No joint swelling or deformity. Normal range of motion. Results CBC & Chem 7: 02/16/22 05:48 02/16/22 05:48 Labs: Abnormal Lab Results - Last 24 Hours (Table) 02/15/22 02/15/22 02/15/22 Range/Units 18:10 18:10 20:42 WBC 18.0 H (3.8-10.6) k/uL Hgb 12.9 L (13.0-17.5) gm/dL MCHC 30.0 L (31.0-37.0) g/dL Plt Count 505 H (150-450) k/uL Neutrophils # 15.6 H (1.3-7.7) k/uL POC Glucose (mg/dL) 378 H (70-110) mg/dL Creatine Kinase 21 L (55-170) U/L 02/16/22 02/16/22 Range/Units 06:04 06:48 WBC (3.8-10.6) k/uL Hgb (13.0-17.5) gm/dL MCHC (31.0-37.0) g/dL Plt Count (150-450) k/uL Neutrophils # (1.3-7.7) k/uL POC Glucose (mg/dL) 195 H 182 H (70-110) mg/dL Creatine Kinase (55-170) U/L Assessment and Plan Assessment: Left second toe osteomyelitis with surrounding cellulitis and foul-smelling discharge. Sepsis secondary to above Hyperglycemia with uncontrolled diabetes type 2 Noncompliance with medications Coronary with history of CABG Prior history of left great toe osteomyelitis status post antibiotic course Hypertension Hyperlipidemia History of [place] Previous history of smoking Bilateral peripheral neuropathy diabetic DVT prophylaxis with heparin subcu Plan: Patient will be continued on antibiotics, vancomycin and was given a dose of Zosyn. Started on Unasyn as per ID recommendations. Patient will be started on Levemir 21 units nightly along with sliding scale and will add preprandial insulin. Continue with IV hydration and follow-up culture reports. Vascular surgery will be consulted for possible debridement and follow-up closely. Patient was counseled extensively for medication compliance and insulin regimen. Prognosis is guarded at this time. Time with Patient: Greater than 30
[2022-02-17] MEDS: INSULIN DETEMIR (LEVEMIR) 100 UNIT/ML SYR SQ SCH ×2 (02:20→20:27)
[2022-02-17 02:21] LABS: Glucose,Whole Blood 240 mg/dL (70-110)
[2022-02-17 06:53] LABS: Glucose,Whole Blood 172 mg/dL (70-110)
[2022-02-17] MEDS ORDERED: VANCOMYCIN TROUGH DUE 1 EACH MISC MISCELLANE ONE (07:00)
--- NOTE | 2022-02-17 08:05 | P.GSCN ---
History of Present Illness History of present illness: 56-year-old diabetic male patient has came to the ER with history of gangrene changes involving the left foot second toe. Patient has history of trauma to the left to a week ago patient had x-ray of the foot which shows possible osteo- of the second toe. His white cell count is 18,000 no fever chills Medical history history of COPD diabetes hypertension co surgical history Had a CABG done 10 years ago on examination chest is clear good entry both lungs first and second sound normal Abdomen soft nontender Femorals palpable 1+ femorals left foot has a gangrene changes with possible osteo-plan is to keep the patient nothing by mouth we'll schedule this surgery left foot ray amputation of the second toe risk and complete dictation discussed continue with IV antibiotic Past Medical History Past Medical History: COPD, Diabetes Mellitus, Hyperlipidemia, Hypertension, Myocardial Infarction ([place]) Additional Past Medical History / Comment(s): 02/10/16 [place]/cardiac arrest/recurrent Vtach-,IDDM type II, pt thinks he has bilateral pedal neuropathy, Last Myocardial Infarction Date:: 2015 History of Any Multi-Drug Resistant Organisms: None Reported Past Surgical History: Coronary Bypass/CABG, Heart Catheterization Additional Past Surgical History / Comment(s): 02/10/16 cardiac cath, 02/13/16 CABG 4 vessel. PICC LINE PLACEMENT LEFT ARM MARCH 2019 Past Anesthesia/Blood Transfusion Reactions: No Reported Reaction Past Psychological History: No Psychological Hx Reported Smoking Status: Former smoker Past Alcohol Use History: None Reported Additional Past Alcohol Use History / Comment(s): Pt started smoking in 1979 and quit in 2015. Past Drug Use History: None Reported - Past Family History Mother Family Medical History: Coronary Artery Disease (CAD), Diabetes Mellitus Father Family Medical History: Diabetes Mellitus Medications and Allergies Home Medications Medication Instructions Recorded Confirmed Type No Known Home Medications 02/15/22 02/15/22 History Allergies Allergy/AdvReac Type Severity Reaction Status Date / Time No Known Allergies Allergy Verified 02/15/22 17:36 Surgical - Exam Vital Signs Temp Pulse Resp BP Pulse Ox 98.1 F 73 14 131/70 99 02/15/22 15:23 02/15/22 15:23 02/15/22 15:23 02/15/22 15:23 02/15/22 15:23 Results - Labs 02/16/22 05:48 02/16/22 05:48 Abnormal Lab Results - Last 24 Hours (Table) 02/16/22 02/16/22 02/16/22 Range/Units 05:48 05:48 05:48 WBC 17.03 H (4.50-10.00) X 10*3/uL Hgb 12.4 L (13.0-17.0) g/dL MCH 26.3 L (27.0-32.0) pg MCHC 30.8 L (32.0-37.0) g/dL Plt Count 504 H (140-440) X 10*3/uL Immature Gran # 0.20 H (0.00-0.04) X 10*3/uL Neutrophils # 13.40 H (1.80-7.70) X 10*3/uL Potassium 5.7 H (3.5-5.5) mmol/L BUN/Creatinine Ratio 24.40 H (12.00-20.00) Ratio Glucose 183 H (70-110) mg/dL POC Glucose (mg/dL) (70-110) mg/dL Hemoglobin A1c 11.1 H (0.0-6.0) % 02/16/22 02/16/22 02/16/22 Range/Units 11:26 16:37 20:33 WBC (4.50-10.00) X 10*3/uL Hgb (13.0-17.0) g/dL MCH (27.0-32.0) pg MCHC (32.0-37.0) g/dL Plt Count (140-440) X 10*3/uL Immature Gran # (0.00-0.04) X 10*3/uL Neutrophils # (1.80-7.70) X 10*3/uL Potassium (3.5-5.5) mmol/L BUN/Creatinine Ratio (12.00-20.00) Ratio Glucose (70-110) mg/dL POC Glucose (mg/dL) 307 H 380 H 308 H (70-110) mg/dL Hemoglobin A1c (0.0-6.0) % 02/17/22 02/17/22 Range/Units 02:19 06:51 WBC (4.50-10.00) X 10*3/uL Hgb (13.0-17.0) g/dL MCH (27.0-32.0) pg MCHC (32.0-37.0) g/dL Plt Count (140-440) X 10*3/uL Immature Gran # (0.00-0.04) X 10*3/uL Neutrophils # (1.80-7.70) X 10*3/uL Potassium (3.5-5.5) mmol/L BUN/Creatinine Ratio (12.00-20.00) Ratio Glucose (70-110) mg/dL POC Glucose (mg/dL) 240 H 172 H (70-110) mg/dL Hemoglobin A1c (0.0-6.0) % Microbiology - Last 24 Hours (Table) 02/15/22 18:10 Blood Culture - Preliminary Blood No Growth after 24 hours 02/15/22 18:18 Blood Culture - Preliminary Blood No Growth after 24 hours Diabetes panel 02/16/22 02/16/22 02/16/22 Range/Units 05:48 05:48 05:48 Sodium 136 (135-145) mmol/L Potassium 5.7 H (3.5-5.5) mmol/L Chloride 98 (96-109) mmol/L Carbon Dioxide 26.9 (20.0-27.5) mmol/L BUN 22.2 (9.0-27.0) mg/dL Creatinine 0.9 0.9 (0.6-1.5) mg/dL Glucose 183 H (70-110) mg/dL Hemoglobin A1c 11.1 H (0.0-6.0) % Calcium 9.4 (8.7-10.3) mg/dL Calcium panel 02/16/22 Range/Units 05:48 Calcium 9.4 (8.7-10.3) mg/dL Pituitary panel 02/16/22 02/16/22 Range/Units 05:48 05:48 Sodium 136 (135-145) mmol/L Potassium 5.7 H (3.5-5.5) mmol/L Chloride 98 (96-109) mmol/L Carbon Dioxide 26.9 (20.0-27.5) mmol/L BUN 22.2 (9.0-27.0) mg/dL Creatinine 0.9 0.9 (0.6-1.5) mg/dL Glucose 183 H (70-110) mg/dL Calcium 9.4 (8.7-10.3) mg/dL Adrenal panel 02/16/22 02/16/22 Range/Units 05:48 05:48 Sodium 136 (135-145) mmol/L Potassium 5.7 H (3.5-5.5) mmol/L Chloride 98 (96-109) mmol/L Carbon Dioxide 26.9 (20.0-27.5) mmol/L BUN 22.2 (9.0-27.0) mg/dL Creatinine 0.9 0.9 (0.6-1.5) mg/dL Glucose 183 H (70-110) mg/dL Calcium 9.4 (8.7-10.3) mg/dL
[2022-02-17] MEDS: HEPARIN SODIUM,PORCINE/PF 5,000 UNIT/0.5 ML SYRINGE SQ SCH ×3 (08:16→23:55)
[2022-02-17] MEDS: INSULIN ASPART (NovoLOG) 100 UNIT/ML VIAL SQ SCH ×4 (08:17→20:27)
[2022-02-17] MEDS: FAMOTIDINE 20 MG TAB PO SCH ×2 (08:17→20:26)
[2022-02-17] MEDS: amLODIPine 5 MG TAB PO SCH ×2 (08:17→20:26)
[2022-02-17] MEDS: METOPROLOL TARTRATE 12.5 MG TAB PO SCH ×2 (08:17→20:26)
[2022-02-17] MEDS: VANCOMYCIN 1,750 MG in SODIUM CHLORIDE 0.9% 500 ML 500 ML IVPB SCH ×2 (10:09→20:38)
[2022-02-17] MEDS: SODIUM CHLORIDE 0.9% 1,000 ML IV SCH ×2 (10:29→23:54)
[2022-02-17 11:16] LABS: African American GFR (CKD) 115.7 (60.0-200.0); Anion Gap 11.1 mmol/L (10.00-18.00); BUN/Creat Ratio 24.78 Ratio (12.00-20.00); Blood Urea Nitrogen 19.5 mg/dL (9.0-27.0); Calcium 8.8 mg/dL (8.7-10.3); Carbon Dioxide 26.3 mmol/L (20.0-27.5); Non-African American GFR(CKD) 99.8 (60.0-200.0); Potassium 4.3 mmol/L (3.5-5.5)
[2022-02-17 11:22] LABS: Glucose,Whole Blood 220 mg/dL (70-110)
[2022-02-17 13:06] VITALS: BMI 25.0
[2022-02-17 16:45] LABS: Glucose,Whole Blood 234 mg/dL (70-110)
[2022-02-17 20:22] LABS: Glucose,Whole Blood 253 mg/dL (70-110)
--- NOTE | 2022-02-17 20:39 | P.PN ---
Subjective Progress Note Date: 02/17/22 Patient is a 56-year-old male with a known history of hypertension, hyperlipidemia, diabetes type 2, coronary disease history of CABG and previous history of left to osteomyelitis presents to ER with complaints of left second toe infection with purulent discharge and foul-smelling worsening for the past 1 week. Patient states that he did have a trauma to the toe and subsequently More discolored and also complaining of aching pain and swelling and redness and foul-smelling discharge. Denies any complaints of fever or chills. No complaints of chest pain or shortness of breath. No nausea vomiting or abdominal pain or diarrhea. Denies any recent illnesses. Patient is currently not taking any medication for diabetes. On admission x-ray of the foot showed destructive changes in the second toe c onsistent with osteomyelitis with loss of the distal phalanx. Soft tissue swelling and soft tissue injury consistent with cellulitis. The big toe appears to show no evidence of osteomyelitis. There is satisfactory healing of the head of the proximal [place] of the big toe compared to old exam. Laboratory test showed WBC 18.0 hemoglobin 10.9 and platelets 505 Sodium 136 potassium 5.7 chloride 98 BUN 22.2 and creatinine 0.9 and blood sugar is 378 A1c 11.1 02/17/2022 Patient is seen in follow-up this morning continues to have left second toe cellulitis with drainage and plan is for surgical amputation with vascular surgery Dr. Nelson possibly this afternoon or am. Patient will be nothing by mouth and recommend continue monitoring Accu-Cheks closely and continue with current medication regimen. Patient will also continue on IV antibiotics with ID following. Recommend deep cultures during surgery. Patient is afebrile and denies chest pain or shortness of breath. Patient reports pain is manageable currently. Lengthy discussion on diet and medication compliance was done with patient and family at bedside about tight glycemic control. Patient is anxious about requiring insulin injections in the outpatient setting and will provide education. Consult dietitian. Review of systems: Constitutional: No reports of fatigue, fever, or chills Cardiovascular: No reports of chest pain or palpitations Respiratory: No reports of shortness of breath or cough GI: No reports of nausea, vomiting, or diarrhea : No reports of dysuria or retention Neurovascular: No reports of weakness or numbness, reports some left foot pain All medications have been reviewed Active Medications Acetaminophen (Acetaminophen Tab 325 Mg Tab) 650 mg PO Q6HR PRN PRN Reason: Mild Pain or Fever > 100.5 Hydrocodone Bitart/Acetaminophen (Hydrocodone/Apap 5-325mg 1 Each Tab) 1 each PO Q12HR PRN PRN Reason: Pain Last Admin: 02/16/22 22:34 Dose: 1 each Amlodipine Besylate (Amlodipine 5 Mg Tab) 5 mg PO BID [facility] Last Admin: 02/17/22 08:17 Dose: 5 mg Famotidine (Famotidine 20 Mg Tab) 20 mg PO Q12HR [facility] Last Admin: 02/17/22 08:17 Dose: 20 mg Heparin Sodium (Porcine) (Heparin Sodium,Porcine/Pf 5,000 Unit/0.5 Ml Syringe) 5,000 unit SQ Q8HR [facility] Last Admin: 02/17/22 08:16 Dose: Not Given Sodium Chloride (Saline 0.9%) 1,000 mls @ 75 mls/hr IV .[id number] [facility] Last Admin: 02/17/22 10:29 Dose: Not Given Ampicillin Sodium/Sulbactam (Sodium 3 gm/ Sodium Chloride) 100 mls @ 200 mls/hr IVPB Q6HR [facility]; Protocol Last Admin: 02/17/22 13:15 Dose: 200 mls/hr Vancomycin HCl 1,750 mg/ (Sodium Chloride) 500 mls @ 167 mls/hr IVPB Q12HR [facility] Last Admin: 02/17/22 10:09 Dose: 167 mls/hr Insulin Aspart (Insulin Aspart (Novolog) 100 Unit/Ml Vial) 0 unit SQ ACHS [facility]; Protocol Last Admin: 02/17/22 13:15 Dose: 3 unit Insulin Detemir (Insulin Detemir (Levemir) 100 Unit/Ml Syr) 21 unit SQ HS [facility] Last Admin: 02/17/22 02:20 Dose: 21 unit Metoprolol Tartrate (Metoprolol Tartrate 12.5 Mg Tab) 12.5 mg PO BID [facility] Last Admin: 02/17/22 08:17 Dose: 12.5 mg Naloxone HCl (Naloxone 0.4 Mg/Ml 1 Ml Vial) 0.2 mg IV Q2M PRN PRN Reason: Opioid Reversal Ondansetron HCl (Ondansetron 4 Mg/2 Ml Vial) 4 mg IVP Q8HR PRN PRN Reason: Nausea And Vomiting PHYSICAL EXAMINATION: Patient is lying in the bed comfortably, no acute distress, awake alert and oriented.. HEENT: Normocephalic. Neck is supple. Pupils reactive. Nostrils clear. Oral cavity is moist. Neck reveals no JVD, carotid bruits, or thyromegaly. CHEST EXAMINATION: Trachea is central. Symmetrical expansion. Lung manriquez clear to auscultation and percussion. CARDIAC: Normal S1, S2 with no gallops. No murmurs ABDOMEN: Soft. Bowel sounds present. Nontender. No organomegaly. No abdominal bruits. Extremities: reveal no edema. Left second toe ulcer/wound redness and swelling and foul-smelling discharge. No clubbing or cyanosis Neurologically awake, alert, oriented x3 with well-coordinated movements. No focal deficits noted Skin: No rash or skin lesions. Psychiatric: Cooperative. Non-suicidal, less anxious. Musculoskeletal: No joint swelling or deformity. Normal range of motion. Assessment: Left second toe osteomyelitis with surrounding cellulitis and foul-smelling discharge. Sepsis secondary to above Hyperglycemia with uncontrolled diabetes type 2 Noncompliance with medications Coronary artery disease with history of CABG Prior history of left great toe osteomyelitis status post antibiotic course Hypertension Hyperlipidemia History of AL Previous history of smoking Bilateral peripheral neuropathy diabetic DVT prophylaxis with heparin subcu full code Plan: Patient is continued on antibiotics, with vanco and Unasyn as per ID recommendations. Recommend deep tissue cultures with amputation Patient maintained on Levemir 21 units nightly along with sliding scale and continue pre-meall insulin. Patient is to be NPO and recommend monitoring accuchecks closely during the night and am pre surgery. Vascular surgery following and planning amputation of the left second toe. Possibly later this afternoon o am. Will await surgical report. Patient was counseled extensively for medication compliance and insulin regimen. Discussed at length with family at bedside about possible insulin on discharge and tight glycemic control. Will consult dietitian. Prognosis is guarded at this time. The impression and plan of care has been dictated by Vandana Cedeno, Nurse Practitioner as directed. Dr. Leslie MD I have performed a history and examination and MDM of this patient, discussed the same with the dictator, and agree with the dictator's assessment and plan as written ,documented as a scribe. Based on total visit time, I have performed more than 50% of the visit. Objective - Vital Signs Vital signs: Vital Signs Temp 98.4 F 02/17/22 07:55 Pulse 67 02/17/22 07:55 Resp 17 02/17/22 07:55 BP 134/62 02/17/22 07:55 Pulse Ox 98 02/17/22 07:55 FiO2 Intake & Output 02/16/22 02/17/22 02/17/22 18:59 06:59 18:59 Intake Total 120 Output Total 970 Balance -970 120 Intake: Oral 120 Output: Urine 970 Other: Voiding Method Toilet Urinal # Voids 3 - Labs CBC & Chem 7: 02/16/22 05:48 02/17/22 07:18 Labs: Abnormal Lab Results - Last 24 Hours (Table) 02/16/22 02/16/22 02/16/22 Range/Units 05:48 05:48 05:48 WBC 17.03 H (4.50-10.00) X 10*3/uL Hgb 12.4 L (13.0-17.0) g/dL MCH 26.3 L (27.0-32.0) pg MCHC 30.8 L (32.0-37.0) g/dL Plt Count 504 H (140-440) X 10*3/uL Immature Gran # 0.20 H (0.00-0.04) X 10*3/uL Neutrophils # 13.40 H (1.80-7.70) X 10*3/uL Potassium 5.7 H (3.5-5.5) mmol/L BUN/Creatinine Ratio 24.40 H (12.00-20.00) Ratio Glucose 183 H (70-110) mg/dL POC Glucose (mg/dL) (70-110) mg/dL Hemoglobin A1c 11.1 H (0.0-6.0) % 02/16/22 02/16/22 02/16/22 Range/Units 11:26 16:37 20:33 WBC (4.50-10.00) X 10*3/uL Hgb (13.0-17.0) g/dL MCH (27.0-32.0) pg MCHC (32.0-37.0) g/dL Plt Count (140-440) X 10*3/uL Immature Gran # (0.00-0.04) X 10*3/uL Neutrophils # (1.80-7.70) X 10*3/uL Potassium (3.5-5.5) mmol/L BUN/Creatinine Ratio (12.00-20.00) Ratio Glucose (70-110) mg/dL POC Glucose (mg/dL) 307 H 380 H 308 H (70-110) mg/dL Hemoglobin A1c (0.0-6.0) % 02/17/22 02/17/22 Range/Units 02:19 06:51 WBC (4.50-10.00) X 10*3/uL Hgb (13.0-17.0) g/dL MCH (27.0-32.0) pg MCHC (32.0-37.0) g/dL Plt Count (140-440) X 10*3/uL Immature Gran # (0.00-0.04) X 10*3/uL Neutrophils # (1.80-7.70) X 10*3/uL Potassium (3.5-5.5) mmol/L BUN/Creatinine Ratio (12.00-20.00) Ratio Glucose (70-110) mg/dL POC Glucose (mg/dL) 240 H 172 H (70-110) mg/dL Hemoglobin A1c (0.0-6.0) % Microbiology - Last 24 Hours (Table) 02/15/22 18:10 Blood Culture - Preliminary Blood No Growth after 24 hours 02/15/22 18:18 Blood Culture - Preliminary Blood No Growth after 24 hours
[2022-02-17] MEDS: HYDROcodone/APAP 5-325MG 1 EACH TAB PO PRN (23:04)
[2022-02-18] MEDS: AMPICILLIN-SULBACTAM 3 GM in SODIUM CHLORIDE 0.9% 100 ML IVPB SCH ×4 (00:23→16:51)
[2022-02-18 07:03] LABS: Glucose,Whole Blood 134 mg/dL (70-110)
[2022-02-18 07:35] LABS: Prothrombin Time 10.9 sec (9.0-12.0)
[2022-02-18 07:39] LABS: African American GFR (CKD) >90 (>60 ml/min/1.73 sqM); Anion Gap 5 mmol/L; Blood Urea Nitrogen 14 mg/dL (9-20); Calcium 8.5 mg/dL (8.4-10.2); Carbon Dioxide 30 mmol/L (22-30); Chloride 103 mmol/L (98-107); Glucose 130 mg/dL (74-99); Magnesium 1.8 mg/dL (1.6-2.3); Non-African American GFR(CKD) >90 (>60 ml/min/1.73 sqM); Potassium 4.1 mmol/L (3.5-5.1); Sodium 138 mmol/L (137-145)
[2022-02-18 07:44] LABS: Basophils # (A) 0.1 k/uL (0-0.2); Basophils % (A) 1 %; Eosinophils # (A) 0.1 k/uL (0-0.7); Eosinophils % (A) 1 %; HCT 37.9 % (39.0-53.0); HGB 12.2 gm/dL (13.0-17.5); Hypochromasia Slight; Lymphocytes # (A) 1.3 k/uL (1.0-4.8); Lymphocytes % (A) 12 %; MCHC 32.2 g/dL (31.0-37.0); MCV 83.9 fL (80.0-100.0); Mean Platelet Volume 7.3; Monocytes # (A) 0.5 k/uL (0-1.0); Monocytes % (A) 4 %; Neutrophils % (A) 81 %; Platelet Count 447 k/uL (150-450); RBC 4.52 m/uL (4.30-5.90); RDW 13.6 % (11.5-15.5); WBC 11.1 k/uL (3.8-10.6)
[2022-02-18] MEDS: HEPARIN SODIUM,PORCINE/PF 5,000 UNIT/0.5 ML SYRINGE SQ SCH ×3 (08:06→23:35)
[2022-02-18] MEDS: FAMOTIDINE 20 MG TAB PO SCH ×2 (08:06→21:06)
[2022-02-18] MEDS: INSULIN ASPART (NovoLOG) 100 UNIT/ML VIAL SQ SCH ×4 (08:06→21:06)
[2022-02-18] MEDS: amLODIPine 5 MG TAB PO SCH ×2 (08:11→21:06)
[2022-02-18] MEDS: METOPROLOL TARTRATE 12.5 MG TAB PO SCH ×2 (08:11→21:06)
[2022-02-18] MEDS: VANCOMYCIN 1,750 MG in SODIUM CHLORIDE 0.9% 500 ML 500 ML IVPB SCH ×2 (08:11→21:05)
--- NOTE | 2022-02-18 08:29 | P.PN ---
Subjective Progress Note Date: 02/17/22 Principal diagnosis: Left second toe wet gangrene/diabetic foot infection Patient is a 56 year male with underlying diabetes mellitus presenting to the hospital with left second toe discoloration concerning for wet gangrene x-ray did shows evidence of osteomyelitis. On today's evaluation 07/21/2022, the patient is afebrile, patient is breathing comfortably, denies any chest pain or shortness of breath or cough pain to the left foot is currently controlled no vomiting no abdominal pain no diarrhea Objective - Vital Signs Vital signs: Vital Signs Temp 98.4 F 02/17/22 07:55 Pulse 67 02/17/22 07:55 Resp 17 02/17/22 07:55 BP 134/62 02/17/22 07:55 Pulse Ox 98 02/17/22 07:55 FiO2 Intake & Output 02/16/22 02/17/22 02/17/22 18:59 06:59 18:59 Intake Total 120 Output Total 970 Balance -970 120 Intake: Oral 120 Output: Urine 970 Other: Voiding Method Toilet Urinal # Voids 3 - Exam GENERAL DESCRIPTION: Middle-age male lying in bed in no distress RESPIRATORY SYSTEM: Unlabored breathing , decreased breath sounds at bases HEART: S1 S2 regular rate and rhythm , ABDOMEN: Soft , no tenderness EXTREMITIES: Left foot is currently dressed minimal drainage on the dressing - Labs CBC & Chem 7: 02/18/22 06:54 02/18/22 06:54 Labs: Abnormal Lab Results - Last 24 Hours (Table) 02/16/22 02/16/22 02/16/22 Range/Units 05:48 05:48 05:48 WBC 17.03 H (4.50-10.00) X 10*3/uL Hgb 12.4 L (13.0-17.0) g/dL MCH 26.3 L (27.0-32.0) pg MCHC 30.8 L (32.0-37.0) g/dL Plt Count 504 H (140-440) X 10*3/uL Immature Gran # 0.20 H (0.00-0.04) X 10*3/uL Neutrophils # 13.40 H (1.80-7.70) X 10*3/uL Potassium 5.7 H (3.5-5.5) mmol/L BUN/Creatinine Ratio 24.40 H (12.00-20.00) Ratio Glucose 183 H (70-110) mg/dL POC Glucose (mg/dL) (70-110) mg/dL Hemoglobin A1c 11.1 H (0.0-6.0) % 02/16/22 02/16/22 02/16/22 Range/Units 11:26 16:37 20:33 WBC (4.50-10.00) X 10*3/uL Hgb (13.0-17.0) g/dL MCH (27.0-32.0) pg MCHC (32.0-37.0) g/dL Plt Count (140-440) X 10*3/uL Immature Gran # (0.00-0.04) X 10*3/uL Neutrophils # (1.80-7.70) X 10*3/uL Potassium (3.5-5.5) mmol/L BUN/Creatinine Ratio (12.00-20.00) Ratio Glucose (70-110) mg/dL POC Glucose (mg/dL) 307 H 380 H 308 H (70-110) mg/dL Hemoglobin A1c (0.0-6.0) % 02/17/22 02/17/22 Range/Units 02:19 06:51 WBC (4.50-10.00) X 10*3/uL Hgb (13.0-17.0) g/dL MCH (27.0-32.0) pg MCHC (32.0-37.0) g/dL Plt Count (140-440) X 10*3/uL Immature Gran # (0.00-0.04) X 10*3/uL Neutrophils # (1.80-7.70) X 10*3/uL Potassium (3.5-5.5) mmol/L BUN/Creatinine Ratio (12.00-20.00) Ratio Glucose (70-110) mg/dL POC Glucose (mg/dL) 240 H 172 H (70-110) mg/dL Hemoglobin A1c (0.0-6.0) % Microbiology - Last 24 Hours (Table) 02/15/22 18:10 Blood Culture - Preliminary Blood No Growth after 24 hours 02/15/22 18:18 Blood Culture - Preliminary Blood No Growth after 24 hours Assessment and Plan (1) Diabetic infection of left foot Current Visit: Yes Status: Acute Code(s): E11.628 - TYPE 2 DIABETES MELLITUS WITH OTHER SKIN COMPLICATIONS; L08.9 - LOCAL INFECTION OF THE SKIN AND SUBCUTANEOUS TISSUE, UNSP SNOMED Code(s): 89429034 (2) Osteomyelitis of second toe of left foot Current Visit: Yes Status: Acute Code(s): M86.9 - OSTEOMYELITIS, UNSPECIFIED SNOMED Code(s): 638816791 Plan: 1patient presented hospital left second toe red gangrene started with a trauma now with evidence of cellulitis and foul-smelling drainage will need to cover for the polymicrobial renee usually associated with this type of infection. 2patient will likely need amputation of the left second toe and debridement as well as deep cultures for which vascular consulted hence the patient and planning for amputation of the left second toe this afternoon 3patient to continue vancomycin and Unasyn and monitor clinical course closely Time with Patient: Less than 30
[2022-02-18 11:17] LABS: Glucose,Whole Blood 124 mg/dL (70-110)
--- NOTE | 2022-02-18 11:53 | CDI ---
Documentation Clarification Form Date: 02/18/2022 11:40:51 AM From: Marietta DanielKingFERNANDEZ michael, CCDS Admit Date: 02/15/2022 05:22:00 PM Patient Name: Selwyn Oshea Visit Number: [id number] Discharge Date: ATTENTION: The Clinical Documentation Specialists (CDI) and [facility] Coding Staff appreciate your assistance in clarifying documentation. Please respond to the clarification below the line at the bottom and electronically sign. The CDI & [facility] Coding staff will review the response and follow-up if needed. Please note: Queries are made part of the Legal Health Record. If you have any questions, please contact the author of this message via ITS. Dr. Cary Nelson: Cellulitis of the Left Second Toe and Osteomyelitis is documented in the 02/16 H/P and the 02/16 Infectious Disease Consult. Per the patient's documented history, also has Non-Insulin Dependent Diabetes Mellitus Type II. Please clarify if there is a relationship between the diagnosis of Diabetes Type II and Cellulitis of the Left Second Toe. History/Risk Factors per the 02/16 H/P: Hypertension, Hyperlipidemia, DM II, Bilateral Pedal Neuropathy, CAD, AL and Cardiac Arrest status post CABG and previous Left Toe Osteomyelitis, former smoker. Clinical Indicators: Presented to the ED on 02/15 with Left 2nd Toe turning brown over the past week, now black, no odor. Admit with Diabetic Infection of Left foot, Osteomyelitis of 2nd Toe of Left Foot. 02/15 VS: T 98.1, P 73, R 14, BP 131/70, PO 99 RA, BMI: 25.1 02/15 LAB: WBC 18.0, Hgb 12.9, Pl Ct 505, Neutrophils 15.6; Glucose 378, Creatine Kinase 21 02/15 Left Foot: Destructive changes in the second toe consistent with osteomyelitis with loss of the distal phalanx. Soft tissue swelling & soft tissue air consistent with cellulitis. Treatment 02/15: Hypoglycemia protocol, Insulin sliding scale, Blood cultures x2, IV zosyn 100 mls @ 200 mls/hr x1, IV Vancomycin 250 mls @ 125 mls/hr x1. Infectious Disease Consult: Diabetic Infection of left foot, Osteomyelitis of second toe of left foot. Please clarify the relationship, if any, which is clinically appropriate for this patient: [x ] Cellulitis of the left second toe is due to Diabetes Mellitus [ ] Cellulitis of the left second toe is not due to Diabetes Mellitus [ ] Other explanation of clinical findings (please specify) [ ] Unable to determine (no explanation for clinical findings) (Template Last Revised: October 2020) MTDD
[2022-02-18] MEDS ORDERED: LACTATED RINGERS 1,000 ML IV ONE (12:26)
[2022-02-18 12:40] LABS: Glucose,Whole Blood 128 mg/dL (70-110)
[2022-02-18] MEDS ORDERED: ONDANSETRON 4 MG/2 ML VIAL IVP ONE (12:52)
[2022-02-18] MEDS ORDERED: LIDOCAINE 2% INJ 20 MG/ML (2 ML VIAL) ONE (13:03)
[2022-02-18] MEDS ORDERED: MIDAZOLAM 2 MG/2 ML VIAL ONE (13:03)
[2022-02-18] MEDS ORDERED: GLYCOPYRROLATE 0.2 MG/ML 2 ML VIAL ONE (13:03)
[2022-02-18] MEDS ORDERED: fentaNYL (PF) 50 MCG/ML 2 ML AMP ONE (13:03)
[2022-02-18] MEDS ORDERED: PROPOFOL 10 MG/ML 20 ML VIAL IV ONE (13:03)
[2022-02-18] MEDS ORDERED: diphenhydrAMINE 50 MG/ML 1 ML VIAL ONE (13:03)
[2022-02-18] MEDS ORDERED: LIDOCAINE 1% INJ 10MG/ML (20 ML MDV) SQ ONE (13:21)
--- NOTE | 2022-02-18 14:14 | OP ---
OPERATIVE REPORT PREOPERATIVE DIAGNOSE: Wet gangrene of the left foot second toe. POSTOP: Wet gangrene of the left foot second toe. OPERATION: Ray amputation of the left foot second toe. DESCRIPTION OF PROCEDURE: This patient was brought to the operating room. Left foot was prepped and drapes applied in a sterile manner. Under IV sedation and local anesthesia, incision was made on the dorsal aspect of the foot. An elliptical deepened through skin fat and fascia and tendons were divided. After that, incision was extended to the plantar aspect deepened through skin fat and fascia and tendons were divided until we reached the metatarsophalangeal joint. Ligaments were divided and the toe was removed at the metatarsophalangeal joint. There were some bleeding points which were electrocoagulated and wound was copiously irrigated with hydrogen peroxide and saline. Incision was closed with 2-0 Vicryl. We kept the skin open because of infection. Aquacel silver rope was applied to the wound. Dressing applied. Patient tolerated the procedure well. We will change the dressing in 48 hours. MMODL / IJN: [id number] /
[2022-02-18] MEDS: SODIUM CHLORIDE 0.9% 1,000 ML IV SCH (14:26)
[2022-02-18 16:48] LABS: Glucose,Whole Blood 224 mg/dL (70-110)
[2022-02-18] MEDS: HYDROcodone/APAP 5-325MG 1 EACH TAB PO PRN (16:56)
--- NOTE | 2022-02-18 18:51 | P.PN ---
Subjective Progress Note Date: 02/18/22 Patient is a 56-year-old male with a known history of hypertension, hyperlipidemia, diabetes type 2, coronary disease history of CABG and previous history of left to osteomyelitis presents to ER with complaints of left second toe infection with purulent discharge and foul-smelling worsening for the past 1 week. Patient states that he did have a trauma to the toe and subsequently More discolored and also complaining of aching pain and swelling and redness and foul-smelling discharge. Denies any complaints of fever or chills. No complaints of chest pain or shortness of breath. No nausea vomiting or abdominal pain or diarrhea. Denies any recent illnesses. Patient is currently not taking any medication for diabetes. On admission x-ray of the foot showed destructive changes in the second toe c onsistent with osteomyelitis with loss of the distal phalanx. Soft tissue swelling and soft tissue injury consistent with cellulitis. The big toe appears to show no evidence of osteomyelitis. There is satisfactory healing of the head of the proximal [place] of the big toe compared to old exam. Laboratory test showed WBC 18.0 hemoglobin 10.9 and platelets 505 Sodium 136 potassium 5.7 chloride 98 BUN 22.2 and creatinine 0.9 and blood sugar is 378 A1c 11.1 02/17/2022 Patient is seen in follow-up this morning continues to have left second toe cellulitis with drainage and plan is for surgical amputation with vascular surgery Dr. Nelson possibly this afternoon or am. Patient will be nothing by mouth and recommend continue monitoring Accu-Cheks closely and continue with current medication regimen. Patient will also continue on IV antibiotics with ID following. Recommend deep cultures during surgery. Patient is afebrile and denies chest pain or shortness of breath. Patient reports pain is manageable currently. Lengthy discussion on diet and medication compliance was done with patient and family at bedside about tight glycemic control. Patient is anxious about requiring insulin injections in the outpatient setting and will provide education. Consult dietitian. 02/18/2022 Patient is reported to have no issues overnight. Pain is controlled. blood sugars are 120's and being monitored closely as patient is NPO. Surgery planned for 12-1pm today with vascular surgery for left 2nd toe amputation and deep cultures. Patient is afebrile and labs within normal limits. Patient denies chest pain or shortness of breath. Awaiting surgery. Review of systems: Constitutional: No reports of fatigue, fever, or chills Cardiovascular: No reports of chest pain or palpitations Respiratory: No reports of shortness of breath or cough GI: No reports of nausea, vomiting, or diarrhea : No reports of dysuria or retention Neurovascular: No reports of weakness or numbness, reports some left foot pain All medications have been reviewed Active Medications Acetaminophen (Acetaminophen Tab 325 Mg Tab) 650 mg PO Q6HR PRN PRN Reason: Mild Pain or Fever > 100.5 Hydrocodone Bitart/Acetaminophen (Hydrocodone/Apap 5-325mg 1 Each Tab) 1 each PO Q12HR PRN PRN Reason: Pain Last Admin: 02/18/22 16:56 Dose: 1 each Amlodipine Besylate (Amlodipine 5 Mg Tab) 5 mg PO BID [facility] Last Admin: 02/18/22 08:11 Dose: 5 mg Famotidine (Famotidine 20 Mg Tab) 20 mg PO Q12HR [facility] Last Admin: 02/18/22 08:06 Dose: Not Given Heparin Sodium (Porcine) (Heparin Sodium,Porcine/Pf 5,000 Unit/0.5 Ml Syringe) 5,000 unit SQ Q8HR [facility] Last Admin: 02/18/22 15:36 Dose: Not Given Sodium Chloride (Saline 0.9%) 1,000 mls @ 75 mls/hr IV .[id number] [facility] Last Admin: 02/18/22 14:26 Dose: Not Given Ampicillin Sodium/Sulbactam (Sodium 3 gm/ Sodium Chloride) 100 mls @ 200 mls/hr IVPB Q6HR [facility]; Protocol Last Admin: 02/18/22 16:51 Dose: 200 mls/hr Vancomycin HCl 1,750 mg/ (Sodium Chloride) 500 mls @ 167 mls/hr IVPB Q12HR [facility] Last Admin: 02/18/22 08:11 Dose: 167 mls/hr Insulin Aspart (Insulin Aspart (Novolog) 100 Unit/Ml Vial) 0 unit SQ ACHS [facility]; Protocol Last Admin: 02/18/22 16:50 Dose: 3 unit Insulin Detemir (Insulin Detemir (Levemir) 100 Unit/Ml Syr) 21 unit SQ HS [facility] Last Admin: 02/17/22 20:27 Dose: 21 unit Metoprolol Tartrate (Metoprolol Tartrate 12.5 Mg Tab) 12.5 mg PO BID [facility] Last Admin: 02/18/22 08:11 Dose: 12.5 mg Miscellaneous Information (Vancomycin Trough Due 1 Each Misc) 1 each MISCELLANE ONCE ONE Stop: 02/19/22 08:01 Naloxone HCl (Naloxone 0.4 Mg/Ml 1 Ml Vial) 0.2 mg IV Q2M PRN PRN Reason: Opioid Reversal Ondansetron HCl (Ondansetron 4 Mg/2 Ml Vial) 4 mg IVP Q8HR PRN PRN Reason: Nausea And Vomiting PHYSICAL EXAMINATION: Patient is lying in the bed comfortably, no acute distress, awake alert and oriented.. HEENT: Normocephalic. Neck is supple. Pupils reactive. Nostrils clear. Oral cavity is moist. Neck reveals no JVD, carotid bruits, or thyromegaly. CHEST EXAMINATION: Trachea is central. Symmetrical expansion. Lung manriquez clear to auscultation and percussion. CARDIAC: Normal S1, S2 with no gallops. No murmurs ABDOMEN: Soft. Bowel sounds present. Nontender. No organomegaly. No abdominal bruits. Extremities: reveal no edema. Left second toe ulcer/wound redness and swelling and foul-smelling discharge. No clubbing or cyanosis Neurologically awake, alert, oriented x3 with well-coordinated movements. No focal deficits noted Skin: No rash or skin lesions. Psychiatric: Cooperative. Non-suicidal, less anxious. Musculoskeletal: No joint swelling or deformity. Normal range of motion. Assessment: Left second toe osteomyelitis with surrounding cellulitis secondary to diabetes mellitus. Sepsis secondary to above Hyperglycemia with uncontrolled diabetes type 2 Noncompliance with medications Coronary artery disease with history of CABG Prior history of left great toe osteomyelitis status post antibiotic course Hypertension Hyperlipidemia History of ID Previous history of smoking Bilateral peripheral neuropathy diabetic DVT prophylaxis with heparin subcu full code Plan: Patient is continued on antibiotics, with ID following. Vascular surgery consulted for left second toe amputation that is scheduled for today. Will await surgical report. Recommend deep tissue cultures with amputation Patient maintained on Levemir 21 units nightly along with sliding scale and continue pre-meall insulin. Patient currently NPO and accucheck is currently 120's. recommend monitoring accuchecks closely during the surgery. Ok to resume diet once recovered from surgery post op. Patient was counseled extensively for medication compliance and insulin regimen. Discussed at length with family at bedside about possible insulin on discharge and tight glycemic control. consult dietitian. Prognosis is guarded at this time. The impression and plan of care has been dictated by Vandana Cedeno, Nurse Practitioner as directed. Dr. Leslie MD I have performed a history and examination and MDM of this patient, discussed the same with the dictator, and agree with the dictator's assessment and plan as written ,documented as a scribe. Based on total visit time, I have performed more than 50% of the visit. Objective - Vital Signs Vital signs: Vital Signs Temp 97.9 F 02/18/22 06:46 Pulse 67 02/18/22 06:46 Resp 18 02/18/22 02:25 BP 147/71 02/18/22 06:46 Pulse Ox 97 02/18/22 06:46 FiO2 Intake & Output 02/17/22 02/18/22 02/18/22 18:59 06:59 18:59 Intake Total 240 Output Total 1140 Balance 240 -1140 Weight 83.915 kg Intake: Oral 240 Output: Urine 1140 Other: Voiding Method Urinal # Voids 5 - Labs CBC & Chem 7: 02/18/22 06:54 02/18/22 06:54 Labs: Abnormal Lab Results - Last 24 Hours (Table) 02/17/22 02/17/22 02/17/22 Range/Units 07:18 11:20 16:43 WBC (3.8-10.6) k/uL Hgb (13.0-17.5) gm/dL Hct (39.0-53.0) % Neutrophils # (1.3-7.7) k/uL BUN/Creatinine Ratio 24.78 H (12.00-20.00) Ratio Glucose 168 H (70-110) mg/dL POC Glucose (mg/dL) 220 H 234 H (70-110) mg/dL 02/17/22 02/18/22 02/18/22 Range/Units 20:20 06:54 06:54 WBC 11.1 H (3.8-10.6) k/uL Hgb 12.2 L (13.0-17.5) gm/dL Hct 37.9 L (39.0-53.0) % Neutrophils # 9.0 H (1.3-7.7) k/uL BUN/Creatinine Ratio (12.00-20.00) Ratio Glucose 130 H (70-110) mg/dL POC Glucose (mg/dL) 253 H (70-110) mg/dL 02/18/22 Range/Units 07:01 WBC (3.8-10.6) k/uL Hgb (13.0-17.5) gm/dL Hct (39.0-53.0) % Neutrophils # (1.3-7.7) k/uL BUN/Creatinine Ratio (12.00-20.00) Ratio Glucose (70-110) mg/dL POC Glucose (mg/dL) 134 H (70-110) mg/dL Microbiology - Last 24 Hours (Table) 02/15/22 18:18 Blood Culture - Preliminary Blood No Growth after 48 hours 02/15/22 18:10 Blood Culture - Preliminary Blood No Growth after 48 hours
[2022-02-18 20:53] LABS: Glucose,Whole Blood 293 mg/dL (70-110)
[2022-02-18] MEDS: INSULIN DETEMIR (LEVEMIR) 100 UNIT/ML SYR SQ SCH ×2 (21:06→21:48)
[2022-02-19] MEDS: AMPICILLIN-SULBACTAM 3 GM in SODIUM CHLORIDE 0.9% 100 ML IVPB SCH ×4 (00:20→17:02)
[2022-02-19] MEDS: SODIUM CHLORIDE 0.9% 1,000 ML IV SCH ×2 (05:38→17:02)
[2022-02-19 06:59] LABS: Glucose,Whole Blood 158 mg/dL (70-110)
[2022-02-19] MEDS: INSULIN ASPART (NovoLOG) 100 UNIT/ML VIAL SQ SCH ×4 (07:31→21:36)
[2022-02-19] MEDS: HEPARIN SODIUM,PORCINE/PF 5,000 UNIT/0.5 ML SYRINGE SQ SCH ×3 (07:32→23:39)
[2022-02-19] MEDS: METOPROLOL TARTRATE 12.5 MG TAB PO SCH ×2 (07:36→21:37)
[2022-02-19] MEDS: VANCOMYCIN 1,750 MG in SODIUM CHLORIDE 0.9% 500 ML 500 ML IVPB SCH ×2 (07:36→21:36)
[2022-02-19] MEDS: amLODIPine 5 MG TAB PO SCH ×2 (07:36→21:36)
[2022-02-19] MEDS: FAMOTIDINE 20 MG TAB PO SCH ×2 (07:36→21:37)
[2022-02-19] MEDS ORDERED: VANCOMYCIN TROUGH DUE 1 EACH MISC MISCELLANE ONE (08:00)
[2022-02-19] MEDS ORDERED: HYDROmorphone 0.5 MG/0.5 ML SYRINGE IVP PRN (08:43)
[2022-02-19] MEDS ORDERED: fentaNYL (PF) 50 MCG/ML 2 ML AMP IV PRN (08:43)
[2022-02-19] MEDS: HYDROcodone/APAP 5-325MG 1 EACH TAB PO PRN ×2 (09:41→21:45)
[2022-02-19] MEDS: LACTATED RINGERS 1,000 ML IV SCH (10:48)
[2022-02-19 11:19] LABS: Glucose,Whole Blood 128 mg/dL (70-110)
--- NOTE | 2022-02-19 13:21 | PN ---
PROGRESS NOTE 56-year-old diabetic male patient had a ray amputation on the left foot second toe for wet gangrene. Today we have changed the dressing, less discharge noted. There is some discoloration of the skin on the lateral aspect of the fifth toe. We used Aquacel silver to the wound. Dressing will be changed on Thursday. Continue with IV antibiotic and the patient is under care of Infectious Disease. MMODL / IJN: [id number] /
[2022-02-19 16:58] LABS: Glucose,Whole Blood 372 mg/dL (70-110)
[2022-02-19 19:39] LABS: Glucose,Whole Blood 350 mg/dL (70-110)
[2022-02-19] MEDS: INSULIN DETEMIR (LEVEMIR) 100 UNIT/ML SYR SQ SCH (21:36)
[2022-02-20] MEDS: AMPICILLIN-SULBACTAM 3 GM in SODIUM CHLORIDE 0.9% 100 ML IVPB SCH ×5 (01:05→23:55)
[2022-02-20] MEDS: SODIUM CHLORIDE 0.9% 1,000 ML IV SCH ×2 (05:09→20:43)
[2022-02-20 06:54] LABS: Glucose,Whole Blood 177 mg/dL (70-110)
[2022-02-20 07:29] LABS: Basophils % (A) 0 %; Eosinophils # (A) 0.1 k/uL (0-0.7); Eosinophils % (A) 1 %; HCT 34.2 % (39.0-53.0); HGB 10.9 gm/dL (13.0-17.5); Hypochromasia Slight; Lymphocytes # (A) 1.4 k/uL (1.0-4.8); Lymphocytes % (A) 15 %; MCH 27.1 pg (25.0-35.0); MCHC 31.9 g/dL (31.0-37.0); MCV 85.1 fL (80.0-100.0); Mean Platelet Volume 7.9; Monocytes # (A) 0.4 k/uL (0-1.0); Monocytes % (A) 5 %; Neutrophils # (A) 7.2 k/uL (1.3-7.7); Neutrophils % (A) 77 %; Platelet Count 378 k/uL (150-450); RBC 4.02 m/uL (4.30-5.90); RDW 13.7 % (11.5-15.5); WBC 9.3 k/uL (3.8-10.6)
[2022-02-20] MEDS: INSULIN ASPART (NovoLOG) 100 UNIT/ML VIAL SQ SCH ×4 (07:47→21:28)
[2022-02-20 07:48] LABS: African American GFR (CKD) >90 (>60 ml/min/1.73 sqM); Anion Gap 2 mmol/L; Blood Urea Nitrogen 15 mg/dL (9-20); Calcium 8.4 mg/dL (8.4-10.2); Carbon Dioxide 33 mmol/L (22-30); Chloride 100 mmol/L (98-107); Glucose 167 mg/dL (74-99); Magnesium 1.7 mg/dL (1.6-2.3); Non-African American GFR(CKD) >90 (>60 ml/min/1.73 sqM); Sodium 135 mmol/L (137-145)
[2022-02-20] MEDS: HEPARIN SODIUM,PORCINE/PF 5,000 UNIT/0.5 ML SYRINGE SQ SCH ×2 (07:48→15:36)
[2022-02-20] MEDS ORDERED: VANCOMYCIN TROUGH DUE 1 EACH MISC MISCELLANE ONE (08:00)
[2022-02-20] MEDS: VANCOMYCIN 1,750 MG in SODIUM CHLORIDE 0.9% 500 ML 500 ML IVPB SCH ×2 (09:14→20:34)
[2022-02-20] MEDS: METOPROLOL TARTRATE 12.5 MG TAB PO SCH ×2 (09:46→20:34)
[2022-02-20] MEDS: amLODIPine 5 MG TAB PO SCH ×2 (09:46→20:34)
[2022-02-20] MEDS: FAMOTIDINE 20 MG TAB PO SCH ×2 (09:46→20:34)
--- NOTE | 2022-02-20 09:51 | P.PN ---
Subjective Progress Note Date: 02/19/22 Patient is a 56-year-old male with a known history of hypertension, hyperlipidemia, diabetes type 2, coronary disease history of CABG and previous history of left to osteomyelitis presents to ER with complaints of left second toe infection with purulent discharge and foul-smelling worsening for the past 1 week. Patient states that he did have a trauma to the toe and subsequently More discolored and also complaining of aching pain and swelling and redness and foul-smelling discharge. Denies any complaints of fever or chills. No complaints of chest pain or shortness of breath. No nausea vomiting or abdominal pain or diarrhea. Denies any recent illnesses. Patient is currently not taking any medication for diabetes. On admission x-ray of the foot showed destructive changes in the second toe c onsistent with osteomyelitis with loss of the distal phalanx. Soft tissue swelling and soft tissue injury consistent with cellulitis. The big toe appears to show no evidence of osteomyelitis. There is satisfactory healing of the head of the proximal [place] of the big toe compared to old exam. Laboratory test showed WBC 18.0 hemoglobin 10.9 and platelets 505 Sodium 136 potassium 5.7 chloride 98 BUN 22.2 and creatinine 0.9 and blood sugar is 378 A1c 11.1 02/17/2022 Patient is seen in follow-up this morning continues to have left second toe cellulitis with drainage and plan is for surgical amputation with vascular surgery Dr. Nelson possibly this afternoon or am. Patient will be nothing by mouth and recommend continue monitoring Accu-Cheks closely and continue with current medication regimen. Patient will also continue on IV antibiotics with ID following. Recommend deep cultures during surgery. Patient is afebrile and denies chest pain or shortness of breath. Patient reports pain is manageable currently. Lengthy discussion on diet and medication compliance was done with patient and family at bedside about tight glycemic control. Patient is anxious about requiring insulin injections in the outpatient setting and will provide education. Consult dietitian. 02/18/2022 Patient is reported to have no issues overnight. Pain is controlled. blood sugars are 120's and being monitored closely as patient is NPO. Surgery planned for 12-1pm today with vascular surgery for left 2nd toe amputation and deep cultures. Patient is afebrile and labs within normal limits. Patient denies chest pain or shortness of breath. Awaiting surgery. 02/19/2022 Patient is seen in follow-up this morning status post amputation of the left second toe for gangrene cellulitis with osteomyelitis. Dr. Nelson evaluated the patient and change the dressing today and will change the dressing again on Thursday and evaluate. Cultures were obtained and pending at this time. Infectious disease is following and patient will continue with Unasyn and vancomycin at this time. Recommend repeat labs and continue to monitor blood sugars. Blood sugars mildly elevated and will continue on sliding scale and long-acting insulin at night. Encouraged glycemic control and diet modifications. Patient is currently afebrile and lethargic but easily arousable. Patient remains on gentle IV hydration and will likely discontinue tomorrow. Awaiting finalized cultures from the debridement and amputation. P atient denies any chest pain or shortness of breath. Review of systems: Constitutional: No reports of fatigue, fever, or chills Cardiovascular: No reports of chest pain or palpitations Respiratory: No reports of shortness of breath or cough GI: No reports of nausea, vomiting, or diarrhea : No reports of dysuria or retention Neurovascular: No reports of weakness or numbness, reports some left foot pain All medications have been reviewed Active Medications Acetaminophen (Acetaminophen Tab 325 Mg Tab) 650 mg PO Q6HR PRN PRN Reason: Mild Pain or Fever > 100.5 Last Admin: 02/19/22 01:45 Dose: 650 mg Hydrocodone Bitart/Acetaminophen (Hydrocodone/Apap 5-325mg 1 Each Tab) 1 each PO Q12HR PRN PRN Reason: Pain Last Admin: 02/19/22 09:41 Dose: 1 each Amlodipine Besylate (Amlodipine 5 Mg Tab) 5 mg PO BID [facility] Last Admin: 02/19/22 07:36 Dose: 5 mg Famotidine (Famotidine 20 Mg Tab) 20 mg PO Q12HR [facility] Last Admin: 02/19/22 07:36 Dose: 20 mg Fentanyl Citrate (Fentanyl (Pf) 50 Mcg/Ml 2 Ml Amp) 50 mcg IV Q3M PRN PRN Reason: Phase I - Pain Control Stop: 02/19/22 23:00 Heparin Sodium (Porcine) (Heparin Sodium,Porcine/Pf 5,000 Unit/0.5 Ml Syringe) 5,000 unit SQ Q8HR [facility] Last Admin: 02/19/22 07:32 Dose: Not Given Hydromorphone HCl (Hydromorphone 0.5 Mg/0.5 Ml Syringe) 0.5 mg IVP Q5M PRN PRN Reason: Phase 1 or 2 - Pain Control Stop: 02/19/22 23:00 Sodium Chloride (Saline 0.9%) 1,000 mls @ 75 mls/hr IV .[id number] [facility] Last Admin: 02/19/22 05:38 Dose: Not Given Ampicillin Sodium/Sulbactam (Sodium 3 gm/ Sodium Chloride) 100 mls @ 200 mls/hr IVPB Q6HR [facility]; Protocol Last Admin: 02/19/22 12:16 Dose: 200 mls/hr Vancomycin HCl 1,750 mg/ (Sodium Chloride) 500 mls @ 167 mls/hr IVPB Q12HR [facility] Last Admin: 02/19/22 07:36 Dose: 167 mls/hr Lactated Ringer's (Lactated Ringers) 1,000 mls @ 20 mls/hr IV .Q24H [facility] Last Admin: 02/19/22 10:48 Dose: Not Given Insulin Aspart (Insulin Aspart (Novolog) 100 Unit/Ml Vial) 0 unit SQ ACHS [facility]; Protocol Last Admin: 02/19/22 12:07 Dose: Not Given Insulin Detemir (Insulin Detemir (Levemir) 100 Unit/Ml Syr) 21 unit SQ HS [facility] Last Admin: 02/18/22 21:48 Dose: 21 unit Metoprolol Tartrate (Metoprolol Tartrate 12.5 Mg Tab) 12.5 mg PO BID [facility] Last Admin: 02/19/22 07:36 Dose: 12.5 mg Miscellaneous Information (Vancomycin Trough Due 1 Each Misc) 1 each MISCELLANE ONCE ONE Stop: 02/20/22 08:01 Naloxone HCl (Naloxone 0.4 Mg/Ml 1 Ml Vial) 0.2 mg IV Q2M PRN PRN Reason: Opioid Reversal Ondansetron HCl (Ondansetron 4 Mg/2 Ml Vial) 4 mg IVP Q8HR PRN PRN Reason: Nausea And Vomiting PHYSICAL EXAMINATION: Patient is lying in the bed comfortably, no acute distress, awake alert and oriented.. HEENT: Normocephalic. Neck is supple. Pupils reactive. Nostrils clear. Oral cav ity is moist. Neck reveals no JVD, carotid bruits, or thyromegaly. CHEST EXAMINATION: Trachea is central. Symmetrical expansion. Lung manriquez clear to auscultation and percussion. CARDIAC: Normal S1, S2 with no gallops. No murmurs ABDOMEN: Soft. Bowel sounds present. Nontender. No organomegaly. No abdominal bruits. Extremities: reveal no edema. Left foot recently dressed by vascular surgery status post amputation of the left second toe and dressing is dry and intact Neurologically awake, alert, oriented x3 with well-coordinated movements. No focal deficits noted Skin: No rash or skin lesions. Psychiatric: Cooperative. Non-suicidal Musculoskeletal: No joint swelling or deformity. Normal range of motion. Assessment: Left second toe osteomyelitis with surrounding cellulitis secondary to diabetes mellitus. Status post left second toe amputation Sepsis secondary to above Hyperglycemia with uncontrolled diabetes type 2 Noncompliance with medications Coronary artery disease with history of CABG Prior history of left great toe osteomyelitis status post antibiotic course Hypertension Hyperlipidemia History of IA Previous history of smoking Bilateral peripheral neuropathy diabetic DVT prophylaxis with heparin subcu full code Plan: Patient is continued on antibiotics, with ID following. Vascular surgery following an patient underwent left second toe amputation with dressing changes today by vascular surgery. Cultures were obtained and pending at this time and awaiting for finalization to determine discharge antibiotics. Patient does not currently have a primary care provider and will establish in the outpatient setting and resources will be provided. Patient will also follow at the wound center with Dr. Russo outpatient as well. Patient maintained on Levemir 21 units nightly along with sliding scale and continue pre-meall insulin. Patient was counseled extensively for medication compliance and insulin regimen. Discussed at length with family at bedside about possible insulin on discharge and tight glycemic control. consult dietitian. Prognosis is guarded at this time. Awaiting deep tissue finalized cultures to determine discharge antibiotics with possible discharge in 24-48 hours The impression and plan of care has been dictated by Vandana Cedeno, Nurse Practitioner as directed. Dr. Denisse MD I have performed a history and examination and MDM of this patient, discussed the same with the dictator, and agree with the dictator's assessment and plan as written ,documented as a scribe. Based on total visit time, I have performed more than 50% of the visit. Objective - Vital Signs Vital signs: Vital Signs Temp 98.6 F 02/19/22 08:00 Pulse 69 02/19/22 08:00 Resp 16 02/19/22 01:42 BP 114/72 02/19/22 08:00 Pulse Ox 95 02/19/22 08:00 FiO2 Intake & Output 02/18/22 02/19/22 02/19/22 18:59 06:59 18:59 Intake Total 650 Output Total 1205 350 Balance -555 -350 Intake: IV 650 Output: Urine 1200 350 Estimated Blood Loss 5 Other: Voiding Method Urinal - Labs CBC & Chem 7: 02/20/22 07:13 02/20/22 07:13 Labs: Abnormal Lab Results - Last 24 Hours (Table) 02/18/22 02/18/22 02/18/22 Range/Units 11:16 12:39 16:46 POC Glucose (mg/dL) 124 H 128 H 224 H (70-110) mg/dL 02/18/22 02/19/22 Range/Units 20:51 06:59 POC Glucose (mg/dL) 293 H 158 H (70-110) mg/dL Microbiology - Last 24 Hours (Table) 02/15/22 18:10 Blood Culture - Preliminary Blood No Growth after 72 hours 02/15/22 18:18 Blood Culture - Preliminary Blood No Growth after 72 hours 02/18/22 13:30 Anaerobic Culture - Preliminary Toe - Left Second 02/18/22 13:30 Fungal Culture - Preliminary Toe - Left Second
[2022-02-20 11:37] LABS: Glucose,Whole Blood 188 mg/dL (70-110)
[2022-02-20] MEDS: LACTATED RINGERS 1,000 ML IV SCH (14:38)
[2022-02-20] MEDS: MAGNESIUM SULFATE-D5W PMX 1 GM in DEXTROSE/WATER 1 100ML.BAG IVPB SCH ×2 (14:39→16:19)
--- NOTE | 2022-02-20 15:08 | P.PN ---
Subjective Progress Note Date: 02/20/22 Patient is a 56-year-old male with a known history of hypertension, hyperlipidemia, diabetes type 2, coronary disease history of CABG and previous history of left to osteomyelitis presents to ER with complaints of left second toe infection with purulent discharge and foul-smelling worsening for the past 1 week. Patient states that he did have a trauma to the toe and subsequently More discolored and also complaining of aching pain and swelling and redness and foul-smelling discharge. Denies any complaints of fever or chills. No complaints of chest pain or shortness of breath. No nausea vomiting or abdominal pain or diarrhea. Denies any recent illnesses. Patient is currently not taking any medication for diabetes. On admission x-ray of the foot showed destructive changes in the second toe c onsistent with osteomyelitis with loss of the distal phalanx. Soft tissue swelling and soft tissue injury consistent with cellulitis. The big toe appears to show no evidence of osteomyelitis. There is satisfactory healing of the head of the proximal [place] of the big toe compared to old exam. Laboratory test showed WBC 18.0 hemoglobin 10.9 and platelets 505 Sodium 136 potassium 5.7 chloride 98 BUN 22.2 and creatinine 0.9 and blood sugar is 378 A1c 11.1 02/17/2022 Patient is seen in follow-up this morning continues to have left second toe cellulitis with drainage and plan is for surgical amputation with vascular surgery Dr. Nelson possibly this afternoon or am. Patient will be nothing by mouth and recommend continue monitoring Accu-Cheks closely and continue with current medication regimen. Patient will also continue on IV antibiotics with ID following. Recommend deep cultures during surgery. Patient is afebrile and denies chest pain or shortness of breath. Patient reports pain is manageable currently. Lengthy discussion on diet and medication compliance was done with patient and family at bedside about tight glycemic control. Patient is anxious about requiring insulin injections in the outpatient setting and will provide education. Consult dietitian. 02/18/2022 Patient is reported to have no issues overnight. Pain is controlled. blood sugars are 120's and being monitored closely as patient is NPO. Surgery planned for 12-1pm today with vascular surgery for left 2nd toe amputation and deep cultures. Patient is afebrile and labs within normal limits. Patient denies chest pain or shortness of breath. Awaiting surgery. 02/19/2022 Patient is seen in follow-up this morning status post amputation of the left second toe for gangrene cellulitis with osteomyelitis. Dr. Nelson evaluated the patient and change the dressing today and will change the dressing again on Thursday and evaluate. Cultures were obtained and pending at this time. Infectious disease is following and patient will continue with Unasyn and vancomycin at this time. Recommend repeat labs and continue to monitor blood sugars. Blood sugars mildly elevated and will continue on sliding scale and long-acting insulin at night. Encouraged glycemic control and diet modifications. Patient is currently afebrile and lethargic but easily arousable. Patient remains on gentle IV hydration and will likely discontinue tomorrow. Awaiting finalized cultures from the debridement and amputation. P atient denies any chest pain or shortness of breath. 02/20/2022 Patient is seen and evaluated today and continues with some left foot pain although reports is manageable with [place] is an occasional Tylenol. Blood sugars being controlled today with current medication regimen although did have some elevated blood sugars yesterday evening and will continue to monitor closely. Patient's magnesium is 1.7, sodium 135 potassium 4.0 and current creatinine is 0.77. Patient is continued on IV vancomycin while waiting for cultures finalized. Patient's white blood count has normalized and is currently 9.3 with a hemoglobin of 10.9. Patient is afebrile and denies any chest pain or shortness of breath. Patient is being followed by infectious disease and vascular surgery. Awaiting deep tissue cultures. Patient will most likely require a PICC line with ID following and will have close outpatient follow-up at the wound center. Review of systems: Constitutional: No reports of fatigue, fever, or chills Cardiovascular: No reports of chest pain or palpitations Respiratory: No reports of shortness of breath or cough GI: No reports of nausea, vomiting, or diarrhea : No reports of dysuria or retention Neurovascular: No reports of weakness or numbness, reports some left foot pain but managed with [place] and occasional Tylenol All medications have been reviewed Active Medications Acetaminophen (Acetaminophen Tab 325 Mg Tab) 650 mg PO Q6HR PRN PRN Reason: Mild Pain or Fever > 100.5 Last Admin: 02/19/22 01:45 Dose: 650 mg Hydrocodone Bitart/Acetaminophen (Hydrocodone/Apap 5-325mg 1 Each Tab) 1 each PO Q12HR PRN PRN Reason: Pain Last Admin: 02/19/22 21:45 Dose: 1 each Amlodipine Besylate (Amlodipine 5 Mg Tab) 5 mg PO BID [facility] Last Admin: 02/20/22 09:46 Dose: 5 mg Famotidine (Famotidine 20 Mg Tab) 20 mg PO Q12HR NITIN Last Admin: 02/20/22 09:46 Dose: 20 mg Heparin Sodium (Porcine) (Heparin Sodium,Porcine/Pf 5,000 Unit/0.5 Ml Syringe) 5,000 unit SQ Q8HR NITIN Last Admin: 02/20/22 07:48 Dose: Not Given Sodium Chloride (Saline 0.9%) 1,000 mls @ 75 mls/hr IV .[id number] [facility] Last Admin: 02/20/22 05:09 Dose: 75 mls/hr Ampicillin Sodium/Sulbactam (Sodium 3 gm/ Sodium Chloride) 100 mls @ 200 mls/hr IVPB Q6HR [facility]; Protocol Last Admin: 02/20/22 12:36 Dose: 200 mls/hr Vancomycin HCl 1,750 mg/ (Sodium Chloride) 500 mls @ 167 mls/hr IVPB Q12HR [facility] Last Admin: 02/20/22 09:14 Dose: 167 mls/hr Lactated Ringer's (Lactated Ringers) 1,000 mls @ 20 mls/hr IV .Q24H [facility] Last Admin: 02/20/22 14:38 Dose: Not Given Insulin Aspart (Insulin Aspart (Novolog) 100 Unit/Ml Vial) 0 unit SQ ACHS [facility]; Protocol Last Admin: 02/20/22 12:49 Dose: 2 unit Insulin Detemir (Insulin Detemir (Levemir) 100 Unit/Ml Syr) 21 unit SQ HS [facility] Last Admin: 02/19/22 21:36 Dose: 21 unit Metoprolol Tartrate (Metoprolol Tartrate 12.5 Mg Tab) 12.5 mg PO BID [facility] Last Admin: 02/20/22 09:46 Dose: 12.5 mg Naloxone HCl (Naloxone 0.4 Mg/Ml 1 Ml Vial) 0.2 mg IV Q2M PRN PRN Reason: Opioid Reversal Ondansetron HCl (Ondansetron 4 Mg/2 Ml Vial) 4 mg IVP Q8HR PRN PRN Reason: Nausea And Vomiting PHYSICAL EXAMINATION: Patient is lying in the bed comfortably, no acute distress, awake alert and oriented.. HEENT: Normocephalic. Neck is supple. Pupils reactive. Nostrils clear. Oral cavity is moist. Neck reveals no JVD, carotid bruits, or thyromegaly. CHEST EXAMINATION: Trachea is central. Symmetrical expansion. Lung manriquez clear to auscultation and percussion. CARDIAC: Normal S1, S2 with no gallops. No murmurs ABDOMEN: Soft. Bowel sounds present. Nontender. No organomegaly. No abdominal bruits. Extremities: reveal no edema. Left foot dressing is dry and intact Neurologically awake, alert, oriented x3 with well-coordinated movements. No focal deficits noted Skin: No rash or skin lesions. Psychiatric: Cooperative. Non-suicidal Musculoskeletal: No joint swelling or deformity. Normal range of motion. Assessment: Left second toe osteomyelitis with surrounding cellulitis secondary to diabetes mellitus. Status post left second toe amputation Sepsis secondary to above Hyperglycemia with uncontrolled diabetes type 2 Noncompliance with medications Coronary artery disease with history of CABG Prior history of left great toe osteomyelitis status post antibiotic course Hypertension Hyperlipidemia History of [place] Previous history of smoking Bilateral peripheral neuropathy diabetic DVT prophylaxis with heparin subcu full code Plan: Patient is continued on antibiotics, with ID following. Vascular surgery following as patient underwent left second toe amputation and awaiting finalized cultures. Patient is continued on vancomycin and will be receiving a PICC line for outpatient IV antibiotic therapy. Patient does not currently have a primary care provider and will establish in the outpatient setting and resources will be provided. Patient will also follow at the wound center with Dr. Russo outpatient as well. Patient maintained on Levemir 21 units nightly along with sliding scale and continue pre-meall insulin. patient reports to being agreeable to continuing with insulins and compliance on discharge. Patient was counseled extensively for medication compliance and insulin regimen. Discussed at length with family at bedside about possible insulin on discharge and tight glycemic control. Prognosis is guarded at this time. Awaiting deep tissue cultures to finalize and scheduled to receive a PICC line today or tomorrow morning. Possible discharge in 24-48 hours if cultures have finalized The impression and plan of care has been dictated by Vandana Cedeno, Nurse Practitioner as directed. Dr. Denisse MD I have performed a history and examination and MDM of this patient, discussed the same with the dictator, and agree with the dictator's assessment and plan as written ,documented as a scribe. Based on total visit time, I have performed more than 50% of the visit. Objective - Vital Signs Vital signs: Vital Signs Temp 98.6 F 02/20/22 08:10 Pulse 64 02/20/22 08:10 Resp 16 02/20/22 08:10 BP 149/71 02/20/22 08:10 Pulse Ox 97 02/20/22 08:10 FiO2 Intake & Output 02/19/22 02/20/22 02/20/22 18:59 06:59 18:59 Intake Total 120 Output Total 700 Balance -580 Intake: Oral 120 Output: Urine 700 Other: Voiding Method Urinal Urinal - Labs CBC & Chem 7: 02/20/22 07:13 02/20/22 07:13 Labs: Abnormal Lab Results - Last 24 Hours (Table) 02/19/22 02/19/22 02/19/22 Range/Units 11:17 16:56 19:38 RBC (4.30-5.90) m/uL Hgb (13.0-17.5) gm/dL Hct (39.0-53.0) % Sodium (137-145) mmol/L Carbon Dioxide (22-30) mmol/L Glucose (74-99) mg/dL POC Glucose (mg/dL) 128 H 372 H 350 H (70-110) mg/dL 02/20/22 02/20/22 02/20/22 Range/Units 06:53 07:13 07:13 RBC 4.02 L (4.30-5.90) m/uL Hgb 10.9 L (13.0-17.5) gm/dL Hct 34.2 L (39.0-53.0) % Sodium 135 L (137-145) mmol/L Carbon Dioxide 33 H (22-30) mmol/L Glucose 167 H (74-99) mg/dL POC Glucose (mg/dL) 177 H (70-110) mg/dL Microbiology - Last 24 Hours (Table) 02/15/22 18:10 Blood Culture - Preliminary Blood No Growth after 96 hours 02/15/22 18:18 Blood Culture - Preliminary Blood No Growth after 96 hours 02/18/22 13:30 Tissue Culture - Preliminary Toe - Left Second
[2022-02-20 16:24] LABS: Glucose,Whole Blood 240 mg/dL (70-110)
[2022-02-20 18:56] VITALS: RESP 16
[2022-02-20 21:13] LABS: Glucose,Whole Blood 311 mg/dL (70-110)
[2022-02-20] MEDS: INSULIN DETEMIR (LEVEMIR) 100 UNIT/ML SYR SQ SCH (21:28)
[2022-02-20] MEDS: HYDROcodone/APAP 5-325MG 1 EACH TAB PO PRN (22:37)
[2022-02-21] MEDS: HEPARIN SODIUM,PORCINE/PF 5,000 UNIT/0.5 ML SYRINGE SQ SCH ×3 (00:48→17:31)
[2022-02-21] MEDS: SODIUM CHLORIDE 0.9% 1,000 ML IV SCH (06:05)
[2022-02-21] MEDS: AMPICILLIN-SULBACTAM 3 GM in SODIUM CHLORIDE 0.9% 100 ML IVPB SCH ×2 (06:26→17:32)
[2022-02-21 06:54] LABS: Glucose,Whole Blood 198 mg/dL (70-110)
[2022-02-21] MEDS: METOPROLOL TARTRATE 12.5 MG TAB PO SCH (07:54)
[2022-02-21] MEDS: FAMOTIDINE 20 MG TAB PO SCH (07:54)
[2022-02-21] MEDS: INSULIN ASPART (NovoLOG) 100 UNIT/ML VIAL SQ SCH ×3 (07:55→17:31)
[2022-02-21] MEDS: amLODIPine 5 MG TAB PO SCH (07:55)
[2022-02-21 08:54] LABS: African American GFR (CKD) >90 (>60 ml/min/1.73 sqM); Anion Gap 6 mmol/L; Blood Urea Nitrogen 14 mg/dL (9-20); Calcium 8.3 mg/dL (8.4-10.2); Carbon Dioxide 29 mmol/L (22-30); Chloride 103 mmol/L (98-107); Glucose 206 mg/dL (74-99); Magnesium 1.8 mg/dL (1.6-2.3); Non-African American GFR(CKD) >90 (>60 ml/min/1.73 sqM); Potassium 3.8 mmol/L (3.5-5.1); Sodium 138 mmol/L (137-145)
[2022-02-21 09:24] VITALS: BP 152/69; PULSE 56; TEMP 98.7
[2022-02-21] MEDS ORDERED: LIDOCAINE 1% INJ 10MG/ML (5 ML VIAL-PF) SQ ONE (10:54)
[2022-02-21] MEDS: VANCOMYCIN 1,750 MG in SODIUM CHLORIDE 0.9% 500 ML 500 ML IVPB SCH (11:12)
[2022-02-21] MEDS: HYDROcodone/APAP 5-325MG 1 EACH TAB PO PRN (11:14)
[2022-02-21 11:50] LABS: Glucose,Whole Blood 165 mg/dL (70-110)
--- NOTE | 2022-02-21 12:22 | IR ---
EXAMINATION TYPE: IR cvc insert >=5 years DATE OF EXAM: 02/21/2022 COMPARISON: NONE CLINICAL HISTORY: Infection Needs long-term intravenous access for antibiotics. PROCEDURE: Hand hygiene obtained with soap and water and alcohol-based hand rub. After informed consent, the skin overlying the left basilic vein was localized with ultrasound and no dionicio to be compressible and patent. An ultrasound image was obtained and submitted on the patient's c denney. The overlying skin was prepped and draped and Lidocaine was used for local anesthesia. A skin janie was made with a scalpel. Access was gained to the vein under ultrasound guidance with a 21 gau ge needle and a 0.018 inch wire was advanced. Access site was dilated with Peel-Away sheath and cath eter tailored to the appropriate length and advanced such that the distal tip is at the cavoatrial ju nction. Spot image was obtained verifying placement. Catheter was fixed to the skin and a sterile d ressing was placed following hemostasis. Catheter was aspirated and flushed with saline. Patient wa s discharged in stable condition without complication. Maximal barrier technique is utilized. Ultras ound image is documented on the chart. Ultrasound used with sterile technique. Fluoro time and fluoroscopic images submitted to document procedure: 452 intraoperative C-arm images, 0.7 minutes fluoroscopy time IMPRESSION: STATUS POST ULTRASOUND AND FLUOROSCOPIC GUIDED PICC LINE PLACEMENT, READY FOR USE. THIS PROCEDURE WAS PERFORMED BY THE UNDERSIGNED.
[2022-02-21] MEDS: LACTATED RINGERS 1,000 ML IV SCH (17:31)
== END 2022-02-21 17:56 | disposition home health service (06) | DRG 854 ==
LOC: EC 15:09 → 4SSUR 17:22
PROVIDERS: ADMIT Internal Medicine; ATTEND Internal Medicine
PROC: 0Y6S0Z0 Detachment at Left 2nd Toe, Complete, Open Approach (ICD-10-PCS; principal; 2022-02-18 13:00)
PROC: 02HV33Z Insertion of Infusion Device into Superior Vena Cava, Percutaneous Approach (ICD-10-PCS; 2022-02-21)
PROC: B5181ZA Fluoroscopy of Superior Vena Cava using Low Osmolar Contrast, Guidance (ICD-10-PCS; 2022-02-21)
PROC: B548ZZA Ultrasonography of Superior Vena Cava, Guidance (ICD-10-PCS; 2022-02-21)
DX: A40.8 Other streptococcal sepsis (principal); E11.52 Type 2 diabetes mellitus with diabetic peripheral angiopathy with gangrene; I96 Gangrene, not elsewhere classified; M86.8X7 Other osteomyelitis, ankle and foot; E11.42 Type 2 diabetes mellitus with diabetic polyneuropathy; E11.628 Type 2 diabetes mellitus with other skin complications; E11.65 Type 2 diabetes mellitus with hyperglycemia; E11.69 Type 2 diabetes mellitus with other specified complication; E78.5 Hyperlipidemia, unspecified; F17.210 Nicotine dependence, cigarettes, uncomplicated; I10 Essential (primary) hypertension; I25.10 Atherosclerotic heart disease of native coronary artery without angina pectoris; I25.2 Old myocardial infarction; J44.9 Chronic obstructive pulmonary disease, unspecified; L03.032 Cellulitis of left toe; Z79.4 Long term (current) use of insulin; Z82.49 Family history of ischemic heart disease and other diseases of the circulatory system; Z83.3 Family history of diabetes mellitus; Z86.74 Personal history of sudden cardiac arrest; Z89.432 Acquired absence of left foot; Z91.14 Patient's other noncompliance with medication regimen; Z95.1 Presence of aortocoronary bypass graft; L08.9 Local infection of the skin and subcutaneous tissue, unspecified; Z79.899 Other long term (current) drug therapy
CPT/HCPCS: 36573; 80048; 80202; 82550; 82565; 83036; 83605; 83735; 85025; 85610; 87040; 87070; 87075; 87077; 87102; 87186; 87205; 99284